=== PATIENT | female | born 1950 | race Caucasian/White ===

== ENCOUNTER 2020-01-14 10:11 | Outpatient (REF) | payer OTHER, SELFPAY | END 2020-01-14 10:12 | disposition home or self-care (01) | LOC: HO.LAB 10:11 | PROVIDERS: PCP Internal Medicine; Visit Provider Internal Medicine | DX: Z20.828 Contact with and (suspected) exposure to other viral communicable diseases (principal) | CPT/HCPCS: C9803; U0003 ==

== ENCOUNTER 2020-03-10 13:16 | Outpatient (REF) | payer OTHER, SELFPAY | END 2020-03-10 13:17 | disposition home or self-care (01) | LOC: HO.LAB 13:16 | PROVIDERS: PCP Internal Medicine; Visit Provider Internal Medicine | DX: Z20.822 Contact with and (suspected) exposure to COVID-19 (principal) | CPT/HCPCS: 36415; C9803; U0003 ==

== ENCOUNTER 2023-06-02 10:22 | Emergency (ER) | payer OTHER, SELFPAY ==
--- NOTE | ~2023-06-02 | XR_ITS ---
EXAMINATION: XR SACRUM AND COCCYX CLINICAL INFORMATION: Pain, injury. COMPARISON: None available. TECHNIQUE: 3 views of sacrum and coccyx FINDINGS: No evidence of sacral or coccygeal fracture. The sacral ala, foramina and sacroiliac joints are intact. Facet arthropathy, mild narrowing of disc space and chronic grade 1 anterolisthesis at L4-L5. At L5-S1, there is degenerative disc disease as manifest by severe loss of disc height, vacuum disc phenomenon, endplate sclerosis and osteophytosis. XR/XR sacrum coccyx min 2V IMPRESSION: No acute abnormality. No evidence of sacral or coccygeal fracture.
--- NOTE | ~2023-06-02 | CT_ITS ---
EXAMINATION: CT HEAD WITHOUT CONTRAST CT CERVICAL SPINE WITHOUT CONTRAST CLINICAL INFORMATION: Pain. Injury. Head strike. COMPARISON: CT head and cervical spine March 22 TECHNIQUE: Imaging was performed from the skull base to vertex without intravenous administration of contrast. In addition, helical noncontrast CT imaging was acquired through the cervical spine and source images were reviewed along with axial reconstructions and sagittal and coronal MPRs. [This CT examination was performed using dose optimization techniques as appropriate, variously including the following: *Automated exposure control *Adjustment of mA and/or kV according to patient size (this includes techniques or standardized protocols for targeted exams where dose is matched to indication/reason for exam; i.e. extremities or head) *Use of iterative reconstruction technique] DLP: 10.25+618.55+244.15 mGy-cm FINDINGS: HEAD: No intracranial mass, hemorrhage, or midline shift is visualized. There is generalized global volume loss. There is moderate prominence of the ventricles and the sulci . There is mild hypodensity of the periventricular white matter due to chronic small vessel ischemic disease. There are vascular calcifications of the internal carotid arteries bilaterally. No extra-axial collections are identified. The paranasal sinuses and mastoid air cells are well aerated. CERVICAL SPINE: There is no evidence of acute cervical spine fracture. Vertebral bodies remain normal in height. Cervical vertebrae have normal alignment. There is multilevel degenerative spondylosis of the cervical spine with disc height narrowing and endplate spurs and facet joint arthrosis No pre- or paravertebral soft tissue abnormality is identified. Limited assessment of the lung apices is unremarkable. CT/CT cervical spine wo IV con IMPRESSION: 1. No acute intracranial pathology. 2. No CT evidence of acute cervical spine fracture or traumatic subluxation
--- NOTE | ~2023-06-02 | CT_ITS ---
EXAMINATION: CT ABDOMEN AND PELVIS WITH CONTRAST CLINICAL INFORMATION: Abdominal pain following injury. COMPARISON: None available. TECHNIQUE: Multidetector volumetric images were obtained from the superior aspect of the liver through the pubic symphysis following administration 85 mL of Omnipaque 350 intravenous contrast. Sagittal and coronal reformatted images were obtained on the technologist's workstation. Oral contrast: No This CT examination was performed using dose optimization techniques as appropriate, variously including the following: *Automated exposure control *Adjustment of mA and/or kV according to patient size (this includes techniques or standardized protocols for targeted exams where dose is matched to indication/reason for exam; i.e. extremities or head) *Use of iterative reconstruction technique DLP: 734 mGy-cm FINDINGS: LUNG BASES: Small hiatal hernia. LIVER, GALLBLADDER, AND BILIARY TREE: The liver is normal in size and contour. No suspicious hepatic lesion. No biliary ductal dilatation is present. Gallstones. PANCREAS: Unremarkable. SPLEEN: Unremarkable. ADRENAL GLANDS: Unremarkable. KIDNEYS AND URETERS: The kidneys are symmetric in size and enhancement. 5 mm hypodensity upper pole right kidney too small to characterize. No hydronephrosis. No perinephric stranding. BLADDER: Unremarkable. GASTROINTESTINAL TRACT: Colonic diverticular disease. No evidence for acute inflammation. No small bowel obstruction. Appendix is within normal limits. Duodenal diverticula. ABDOMINAL WALL: No significant hernia is appreciated. LYMPH NODES: No bulky lymphadenopathy. VASCULAR: Normal caliber abdominal aorta. PELVIC VISCERA: Unremarkable. OSSEOUS STRUCTURES: No destructive bone lesions. CT/CT abdomen pelvis w IV con IMPRESSION: No acute abnormality in the abdomen or pelvis. Cholelithiasis.
[2023-06-02 10:29] VITALS: BP 141/90; PULSE 89; RESP 20; TEMP 36.8; O2SAT 98; BMI 28.3
--- NOTE | 2023-06-02 10:35 | ED.GENADULT ---
HPI - General Adult General Chief complaint: Fall Stated complaint: Fall/Tailbone pain Time Seen by Provider: 06/02/23 10:35 Source: patient Mode of arrival: ambulatory Limitations: no limitations History of Present Illness HPI narrative: Patient is a 72 year old assigned female at with a history of GERD, chronic cough, depression, and polyarthritis presenting to the emergency department today with low back pain, headache, and abdominal pain after a fall. Patient states that on 05/29/2023 she fell off of a step stool and landed on her buttocks then her head hit the ground. Patient states that she has been having low back pain, headache, and RUQ abdominal pain since the fall. Patient denies any dizziness, lightheadedness, nausea, vomiting, fever, chills, blurry vision, double vision, loss of vision, chest pain, difficulty breathing, shortness of breath, night sweats, pain with urination, increased urinary frequency, increased urinary urgency, blood in her urine or stool, syncope or a near syncopal episode, bowel incontinence, bladder incontinence, bowel retention, bladder retention, or any other complaints at this time. Onset (ago): day(s) (4) Location: back, abdomen and buttocks Severity: mild Severity scale (1-10): 4 Quality: aching and constant Pain Consistency: constant Relieving factors: none Exacerbating factors: none Associated symptoms: denies other symptoms Treatments prior to arrival: none Related Data Previous Rx's Medication Instructions Recorded cyclobenzaprine 5 mg tablet 5 mg PO TID PRN muscle spasm 7 06/02/23 days #21 tabs omeprazole 40 mg capsule,delayed 40 mg PO DAILY 7 days #7 caps 06/02/23 release Allergies Allergy/AdvReac Type Severity Reaction Status Date / Time No Known Allergies Allergy Unverified 11/18/19 15:19 [No Known Allergies*] Review of Systems Constitutional: Constitutional: Reports no additional constitutional complaints, Denies chills, Denies fever(s) and Denies night sweats Eyes: Eyes: Reports no additional eye complaints, Denies blurry vision, Denies change in vision, Denies diplopia, Denies eye discharge, Denies loss of vision and Denies eye pain ENT: Denies dizziness Cardiovascular: Cardiovascular: Reports no additional cardiovascular complaints, Denies chest pain, Denies lightheadedness, Denies Loss of Consciousness and Denies dyspnea Respiratory: Respiratory: Reports no additional respiratory complaints and Denies dyspnea Gastrointestinal: Gastrointestinal: Reports no additional gastrointestinal complaints, Reports abdominal pain, Denies melena, Denies hematochezia, Denies change in bowel habits and Denies change in stool character Genitourinary: Genitourinary: Denies hematuria, Denies urinary frequency, Denies dysuria, Denies urinary incontinence, Denies urinary hesitancy and Denies urinary urgency Musculoskeletal: Musculoskeletal: Reports no additional musculoskeletal complaints, Reports back pain, Denies numbness and Denies tingling Neurologic: Denies dizziness, Denies loss of vision, Denies numbness and Denies tingling Psychiatric: Psychiatric: Reports no additional psychiatric complaints Endocrine: Endocrine: Reports no additional endocrine complaints Hematologic/Lymphatic: Hematologic/Lymphatic: Reports no additional hematologic/lymphatic complaints Allergic/Immunologic: Allergic/Immunologic: Reports no additional allergic/immunologic complaints PMFSH Past Medical History Attestation statement: The following information was validated with the patient. Source: old records reviewed and nursing notes reviewed Medical History Post-menopausal Recurrent oral herpes simplex infection Polyarthritis (03/18/19) Diverticulitis Depression Chronic cough Allergic rhinitis Acid reflux Social History Social History Advance Directives: No Advance Directives Information Provided: Yes Physical Exam ED Vital Signs: Vital Signs - 24 hr 06/02/23 10:29 06/02/23 15:04 06/02/23 15:32 Temperature 98.2 F 97.8 F 97.9 F Pulse Rate 89 78 88 Respiratory Rate 20 16 14 Blood Pressure 141/90 H 148/88 H 123/85 Pulse Oximetry 98 99 99 Oxygen Delivery Method Room Air Room Air Room Air BMI result Body Mass Index 28.3 Const General: cooperative, no acute distress, alert and awake Nutritional Appearance: well nourished Orientation/consciousness: patient oriented x3 Limitations: no limitations HENMT Head: Yes normal to inspection and Yes atraumatic Ears: hearing grossly normal bilaterally and external ears normal General nose exam: Normal external nose present, no nasal discharge noted and no epistaxis Face and sinus: Yes normal facial exam, No abrasion and No laceration Mouth: Normal oral and palatal mucosa present, no drooling and no muffled voice Eyes General: appearance normal, both eyes and all related structures Periorbital: periorbital findings normal Eyelids: Yes eyelids normal Conjunctivae: conjunctivae normal Pupils: Equal, round and reactive pupils present EOM: EOMs intact bilaterally Neck Neck: Yes normal visual inspection, Yes full ROM and Yes no lymphadenopathy Chest Chest palpation & inspection: normal inspection of the chest Resp Effort & Inspection: normal respiratory effort and able to speak in complete sentences GI Inspection: Yes normal to inspection Palpation (GI): Soft to palpation, not firm, nontender and no guarding General: Yes no CVA tenderness Back/Spine/Pelvis Back: no CVA tenderness Cervical Spine: normal cervical lordosis and cervical ROM normal Thoracic/Lumbar Spine: thoracic and lumbar spine normal to inspection Neuro General: patient oriented x3 and moves all extremities Cranial nerves: Yes Equal, round and reactive pupils present Cognition (Neuro): normal cognition Motor exam (neuro): 5/5 motor strength present throughout Sensory Exam: Normal double simultaneous stimulation for sensation Coordination: [id number] test normal Extrem General: Yes normal to inspection, Yes full ROM and Yes capillary refill normal Psych Appearance: grossly normal Mental Status: mental status grossly normal Affect: normal affect Attitude: cooperative Thought process: Normal thought process present Thought content: Normal thought content present Insight: Good insight present (Psych) Medications Administered Discontinued Medications Generic Name Dose Route Start Last Admin Trade Name Freq PRN Reason Stop Dose Admin Iohexol 85 ml 06/02/23 13:58 06/02/23 13:58 Iohexol 350 Mg/Ml 100 Ml Infus..Btl IV 06/02/23 13:59 85 ml ONCE ONE Administration Pantoprazole Sodium 40 mg 06/02/23 12:56 06/02/23 13:30 Pantoprazole Sodium 40 Mg/10 Ml Vial IVPUSH 06/02/23 12:57 40 mg ONCE ONE Administration Medical Decision Making Medical Decision Making MDM Narrative: Patient is a 72 year old assigned female at with a history of GERD, chronic cough, depression, and polyarthritis presenting to the emergency department today with back pain and abdominal pain after a fall. Patient's physical exam was unremarkable. Patient's blood work was unremarkable. Patient's head, c-spine, and abdomen/pelvis CTs showed no acute process. Patient stated that she has been battling a chronic cough for months that antibiotics have not improved. I explained my physical exam findings as well as all test results to the patient. I answered all questions asked by the patient. Patient received IV protonix which she stated helped resolved her coughing completely. Patient states that she has an appointment scheduled with a GI doctor. I stressed the importance of the patient taking her medication as prescribed. I stressed the importance of the patient following up with her primary care provider. I stressed the importance of the patient returning to the emergency department immediately if her symptoms were to worsen or if she were to develop any dizziness, shortness of breath, difficulty breathing, chest pain, blurry vision, loss of vision, nausea, vomiting, abdominal pain, fever, chills, back pain, or any other complaints. Patient verbalized agreement and understanding with this treatment plan and discharge. Differential Diagnosis Differential Diagnoses: The differential diagnosis associated with the presentation includes GERD Back pain Abdominal pain Fall Admission/Observation Consideration of admission/observation: Escalation of care including admission/observation considered Patient would have been admitted to the hospital had her work up had any findings where hospital admission was appropriate and her clinical presentation warranted hospital admission. Lab Data [facility] Lab Attestation statement: I reviewed the patient's lab results. My interpretation of these results are in the [facility] Rationale portion of this note. 06/02/23 12:32 06/02/23 12:32 Labs: Lab Results 06/02/23 Range/Units 12:32 WBC 7.4 (4.8-10.8) X10*3/uL RBC 4.54 (4.20-5.50) X10*6/uL Hgb 14.4 (12.0-16.0) g/dl Hct 40.7 (37.0-47.0) % MCV 89.6 (80.0-98.0) fL MCH 31.7 (27.0-33.0) pg MCHC 35.4 H (31.0-35.0) g/dl RDW 12.3 (11.0-16.0) % Plt Count 275 (160-400) X10*3/uL MPV 9.2 L (9.4-12.3) fL Immature Gran % (Auto) 0.5 H (0.0-0.4) % Neut % (Auto) 84.2 H (45-73) % Lymph % (Auto) 12.9 L (20-40) % [place] % (Auto) 2.3 (2-11) % Eos % (Auto) 0.0 (0-4) % Baso % (Auto) 0.1 (0-2) % Lymph # (Auto) 1.0 L (1.2-4.9) X10*3/uL [place] # (Auto) 0.2 (0.1-1.2) X10*3/uL Eos # (Auto) 0.0 (0.0-0.4) X10*3/uL Baso # (Auto) 0.0 (0.0-0.2) X10*3/uL Abs Immat Gran (auto) 0.04 H (0.00-0.03) X10*3/uL Absolute Neuts (auto) 6.2 (2.0-8.3) x10*3/uL Absolute Nucleated RBC 0.000 (0.0-0.012) X10*3/uL Nucleated RBC % (auto) 0.0 (0.0-0.2) /100WBC Sodium 140 (135-145) mmol/L Potassium 4.5 (3.3-5.1) mmol/L Chloride 109 H (96-108) mmol/L Carbon Dioxide 25 (22-29) mmol/L Anion Gap 11 L (12-20) BUN 20 H (9-16) mg/dL Creatinine 0.84 (0.5-1.4) mg/dL Estim Creat Clear Calc 49.0 Estimated GFR > 60 Random Glucose 138 H (60-115) mg/dL Calcium 9.5 (8.4-10.2) mg/dL Total Bilirubin 0.2 (0.0-1.0) mg/dL AST 16 (5-31) U/L ALT 17 (0-31) U/L Alkaline Phosphatase 71 (39-117) U/L Total Protein 7.1 (6.5-8.0) g/dL Albumin 4.1 (3.5-5.0) g/dL Independent Interpretation I performed an independent interpretation of an: CT Scan Interpretation: My interpretation is in agreement with the radiologist's impression of these imaging studies. EXAMINATION: CT HEAD WITHOUT CONTRAST CT CERVICAL SPINE WITHOUT CONTRAST CLINICAL INFORMATION: Pain. Injury. Head strike. COMPARISON: CT head and cervical spine March 22 TECHNIQUE: Imaging was performed from the skull base to vertex without intravenous administration of contrast. In addition, helical noncontrast CT imaging was acquired through the cervical spine and source images were reviewed along with axial reconstructions and sagittal and coronal MPRs. [This CT examination was performed using dose optimization techniques as appropriate, variously including the following: *Automated exposure control *Adjustment of mA and/or kV according to patient size (this includes techniques or standardized protocols for targeted exams where dose is matched to indication/reason for exam; i.e. extremities or head) *Use of iterative reconstruction technique] DLP: 10.25+618.55+244.15 mGy-cm FINDINGS: HEAD: No intracranial mass, hemorrhage, or midline shift is visualized. There is generalized global volume loss. There is moderate prominence of the ventricles and the sulci . There is mild hypodensity of the periventricular white matter due to chronic small vessel ischemic disease. There are vascular calcifications of the internal carotid arteries bilaterally. No extra-axial collections are identified. The paranasal sinuses and mastoid air cells are well aerated. CERVICAL SPINE: There is no evidence of acute cervical spine fracture. Vertebral bodies remain normal in height. Cervical vertebrae have normal alignment. There is multilevel degenerative spondylosis of the cervical spine with disc height narrowing and endplate spurs and facet joint arthrosis No pre- or paravertebral soft tissue abnormality is identified. Limited assessment of the lung apices is unremarkable. CT/CT head/brain wo IV con IMPRESSION: 1. No acute intracranial pathology. 2. No CT evidence of acute cervical spine fracture or traumatic subluxation Dictated By: Gallo Atkinson MD Signed By: Electronically signed by Gallo Atkinson MD 06/02/23 [id number] EXAMINATION: CT ABDOMEN AND PELVIS WITH CONTRAST CLINICAL INFORMATION: Abdominal pain following injury. COMPARISON: None available. TECHNIQUE: Multidetector volumetric images were obtained from the superior aspect of the liver through the pubic symphysis following administration 85 mL of Omnipaque 350 intravenous contrast. Sagittal and coronal reformatted images were obtained on the technologist's workstation. Oral contrast: No This CT examination was performed using dose optimization techniques as appropriate, variously including the following: *Automated exposure control *Adjustment of mA and/or kV according to patient size (this includes techniques or standardized protocols for targeted exams where dose is matched to indication/reason for exam; i.e. extremities or head) *Use of iterative reconstruction technique DLP: 734 mGy-cm FINDINGS: LUNG BASES: Small hiatal hernia. LIVER, GALLBLADDER, AND BILIARY TREE: The liver is normal in size and contour. No suspicious hepatic lesion. No biliary ductal dilatation is present. Gallstones. PANCREAS: Unremarkable. SPLEEN: Unremarkable. ADRENAL GLANDS: Unremarkable. KIDNEYS AND URETERS: The kidneys are symmetric in size and enhancement. 5 mm hypodensity upper pole right kidney too small to characterize. No hydronephrosis. No perinephric stranding. BLADDER: Unremarkable. GASTROINTESTINAL TRACT: Colonic diverticular disease. No evidence for acute inflammation. No small bowel obstruction. Appendix is within normal limits. Duodenal diverticula. ABDOMINAL WALL: No significant hernia is appreciated. LYMPH NODES: No bulky lymphadenopathy. VASCULAR: Normal caliber abdominal aorta. PELVIC VISCERA: Unremarkable. OSSEOUS STRUCTURES: No destructive bone lesions. CT/CT abdomen pelvis w IV con IMPRESSION: No acute abnormality in the abdomen or pelvis. Cholelithiasis. Dictated By: Belinda Orr MD Signed By: Electronically signed by Belinda Orr MD 06/02/23 1516 Radiology Impression Discussion of test interpretation with radiology: I have reviewed the radiologist's reading. Prescription Management I considered prescription management with: Pain Medication (patient prescribed pain medication) Discharge Plan Discharge Clinical Impression: Fall, Chronic cough, Abdominal pain, Low back pain, Chronic GERD Patient Disposition: Home, Self-Care Instructions: Fall Prevention for Older Adults (ED), Gastroesophageal Reflux Disease (DC), Chronic Cough (ED), Acute Low Back Pain (ED), Abdominal Pain (ED) Additional Instructions: Follow up with your primary care provider and with your GI doctor as scheduled. Return to the emergency department immediately if your symptoms worsen or if you develop any dizziness, shortness of breath, difficulty breathing, chest pain, blurry vision, loss of vision, nausea, vomiting, abdominal pain, fever, chills, back pain, or any other complaints. Prescriptions: New omeprazole 40 mg capsule,delayed release(DR/EC) 40 mg PO DAILY 7 Days Qty: 7 0RF cyclobenzaprine 5 mg tablet 5 mg PO TID PRN (Reason: muscle spasm) 7 Days Qty: 21 0RF Referrals: Brock Culver MD [Primary Care Provider] - Interventions: ED Discharge Assessment Last Done: 06/02/23 15:32 Discharge Date/Time: 06/02/23 15:33 Print Language: Italian
--- NOTE | 2023-06-02 10:39 | PC.NURSE ---
Addendum entered by Ginger Mayfield RN 06/02/23 10:43: Patient denies LOC, no thinners. Original Note: Patient comes to ED due to fall on at home. Patient states she was on step stool turning off light and lost balance and fell on her coccyx with head strike. Patient states she was dizzy post fall and could not move body for a few seconds. Patient rates 7/10 coxxyx pain that worsens with movement. Patient also reports right sided abdominal pain since fall that worsens with movement/touch. Patient is alert and oriented, respirations even and unlabored. vss.
--- OUTSIDE RECORDS SUMMARY | 2023-06-02 10:56 | XMS_ITS | Continuity of Care Document ---
Author Name Unknown Organization [facility] [address] Address [address] [place] [address]- Care Team Providers Care Parking Lot Chauffeur Name Role Phone Abiola LAM, Brock Junior Primary Care Physician [phone] Encounter [facility] Date(s): 04/19/20 - 05/19/20 [facility] Adult [address] [place] [address]- Allergies, Adverse Reactions, Alerts Substance Reaction Severity Status NKA Active Immunizations Given and Recorded Vaccine Date Status Refusal Reason Influenza Virus Vaccine (oldterm) 01/03/20 Recorde d Influenza Virus Vaccine (oldterm) 1 11/08/08 Given influenza virus vaccine, inactivated 11/17/18 Jay rded influenza virus vaccine, inactivated 12/11/17 Give n influenza virus vaccine, inactivated 11/17/16 Jay rded influenza virus vaccine, inactivated 11/04/15 Give n influenza virus vaccine, inactivated 02/14/15 Give n influenza virus vaccine, inactivated 12/01/13 Jay rded influenza virus vaccine, inactivated 2, 3 02/27/13 Recorded pneumococcal 23-valent vaccine 04/18/17 Given Hepatitis A Adult Vaccine 04/18/17 Given tetanus/diphtheria/pertussis, acel(Tdap) 04/18/17 Given pneumococcal 13-valent vaccine 05/03/16 Given FluLaval (oldterm) 4, 5 01/16/12 Given Zoster Vaccine Live 6 03/04/11 Recorded Tet/Diphth/Acel, Pertussis (oldterm) 03/12/07 Give n 1Result Comment: DID NOT GET 2Location History: [facility] 3Result Comment: [03/05/2013] FLUVIRIN LOT # [id number] EXP 05/31/13 4Result Comment: PT REFUSED 5Admin Note: [place] [facility] [place] Medications Diflucan 150 mg oral tablet See Instructions, 1 tablet By Mouth , if symptoms not improved in 72 hours take another., # 2 tablet, 0 Refills, Maintenance, 04/19/20 16:57:00 EST, Tablet, [id number], Partial fill upon patient request if the prescription is for a sc... Start Date: 04/19/20 Status: Ordered escitalopram 10 mg oral tablet 1 tablet = 10 mg, By Mouth, Daily, # 90 tablet, 4 Refills, Maintenance, 05/06/19 13:44:00 EST, Tablet, [facility] #[id number], 152.4, cm, 03/18/19 15:27:00 EST, Height Start Date: 05/06/19 Status: Ordered Singulair 10 mg oral tablet 10 mg, 1, tablet, By Mouth, Daily, # 90 tablet, Refills 1, Tot. Refills 1, Maintenance, 02/07/20 15:07:00 EST, Route to Pharmacy Electronically, [id number], 152.4, cm, 01/10/20 11:58:00 EST, Height Start Date: 02/07/20 Stop Date: 08/05/20 Status: Ordered ZyrTEC 10 mg oral tablet 1 tablet = 10 mg, By Mouth, Daily, # 90 tablet, 0 Refills, Maintenance, 07/03/18 11:23:38 EDT, Tablet Start Date: 07/03/18 Status: Ordered Problem List Condition Effective Dates Status Health Status Inform ant Acute bronchitis(Confirmed) Active After menopause(Confirmed) Active Allergic rhinitis(Confirmed) Active Chronic cough(Confirmed) Active Colonoscopy(Confirmed) 1 Active Depression(Confirmed) Active Diverticulitis(Confirmed) Active Female climacteric state(Confirmed) Active Acid reflux(Confirmed) Active H/O heartburn(Confirmed) Active Recurrent oral herpes simple x infection(Confirmed) Active Sinusitis(Confirmed) Active 8[address]11 nl, repeat 2019 Social History Social History Type Response Smoking Status Former smoker; Other : Quit smoking age 35; entered on: 05/03/16 Sex
--- OUTSIDE RECORDS SUMMARY | 2023-06-02 10:56 | XMS_ITS | Continuity of Care Document ---
Author Name Unknown Organization [facility] Address [address] [place] [address]- Care Team Providers Care Engine Repairer Name Role Phone Brock Culver MD Primary Care Physician [facility]23 - 05/16/23 [facility] Adult [address] [place] [address]- Allergies, Adverse Reactions, Alerts No Known Allergies Immunizations Given and Recorded Vaccine Date Status Refusal Reason SARS-CoV-2(COVID-19)mRNA-LNP vac([id number]) 02/04/23 Recorded influenza virus vaccine, inactivated 01/13/23 Jay rded influenza virus vaccine, inactivated 12/18/21 Jay rded influenza virus vaccine, inactivated 12/29/20 Jay rded influenza virus vaccine, inactivated 11/29/19 Jay rded influenza virus vaccine, inactivated 11/17/18 Jay rded influenza virus vaccine, inactivated 12/11/17 Give n influenza virus vaccine, inactivated 12/09/17 Jay rded influenza virus vaccine, inactivated 12/18/16 Jay rded influenza virus vaccine, inactivated 11/17/16 Jay rded influenza virus vaccine, inactivated 11/04/15 Give n influenza virus vaccine, inactivated 02/14/15 Give n influenza virus vaccine, inactivated 12/01/13 Jay rded influenza virus vaccine, inactivated 1, 2 02/27/13 Recorded [id number] bivalent booster vax 01/02/22 Recorded SARS-CoV-2 (COVID-19) mRNA-1273 vaccine 07/13/21 R ecorded SARS-CoV-2 (COVID-19) mRNA-1273 vaccine 05/25/20 R ecorded SARS-CoV-2 (COVID-19) mRNA-1273 vaccine 04/27/20 R ecorded Influenza Virus Vaccine (oldterm) 01/03/20 Recorde d pneumococcal 23-valent vaccine 04/18/17 Given Hepatitis A Adult Vaccine 04/18/17 Given tetanus/diphtheria/pertussis, acel(Tdap) 04/18/17 Given pneumococcal 13-valent vaccine 05/03/16 Given Zoster Vaccine Live 3 03/04/11 Recorded Tet/Diphth/Acel, Pertussis (oldterm) 03/12/07 Give n 1Location History: [facility] 2Result Comment: [03/05/2013] FLUVIRIN LOT # [id number] EXP 05/31/13 3Location History: [facility] Medications azithromycin 250 mg oral tablet See Instructions, Take 2 tablets on day 1 and 1 tablet daily for next 4 days, # 6 tablet, 0 Refills, Maintenance, 04/16/23 10:42:00 EST, Tablet, [facility] #[id number], Partial fill upon patientrequest if the prescription is for a schedule II op... Start Date: 04/16/23 Status: Ordered escitalopram 10 mg oral tablet 1 tablet, By Mouth, Daily, # 90 tablet, 3 Refills, Maintenance, 09/05/22 14:05:00 EDT, [facility] #[id number], 152.4, cm, 09/05/22 12:54:00 EDT, Height Start Date: 09/05/22 Status: Ordered fluticasone 50 mcg/inh nasal spray 2 sprays = 100 mcg, Nares, Both, Daily in AM, # 16 Gm, 11 Refills, Maintenance, 02/10/23 14:27:00 EST, [place], [facility] #[id number], Partial fill upon patient request if the prescription is fora schedule II opioid drug., 2 sprays Nares, Both Da... Start Date: 02/10/23 Status: Ordered predniSONE 10 mg oral tablet 1 tablet = 10 mg, By Mouth, 2 times a day, # 10 tablet, 0 Refills, Maintenance, 04/16/23 10:22:00 EST, Tablet, [facility] #[id number], Partial fill upon patient request if the prescription is for a schedule II opioid drug., 152.4, cm, 04/16/23 10... Start Date: 04/16/23 Status: Ordered predniSONE 20 mg oral tablet 2 tablet = 40 mg, By Mouth, Daily, PRN severe cough, # 20 tablet, 0 Refills, Maintenance, 02/10/23 14:26:00 EST, Tablet, [facility] #[id number], Partial fill upon patient request if the prescription is for a schedule II opioid drug., 152.4, cm, 1... Start Date: 02/10/23 Status: Ordered Protonix 20 mg oral delayed release tablet 1 tablet = 20 mg, By Mouth, Daily, # 30 tablet, 6 Refills, Maintenance, 11/02/21 11:34:00 EDT, CR Tablet, 152.4, cm, 11/02/21 11:15:00 EDT, Height Start Date: 11/02/21 Status: Ordered scopolamine 1 mg/72 hr transdermal film, extended release 1 patch, Topically, Every 72 hours, # 4 patch, 0 Refills, Maintenance, 02/10/23 14:23:00 EST, [facility] #[id number], Partial fill upon patient request if the prescription is for a schedule II opioid drug., 1 patch Topically Every 72 hours, 152.4... Start Date: 02/10/23 Status: Ordered ZyrTEC 10 mg oral tablet 1 tablet = 10 mg, By Mouth, Daily, # 90 tablet, 3 Refills, Maintenance, 04/09/21 14:24:00 EST, Tablet, [facility] #[id number], Partial fill upon patient request if the prescription is for a schedule II opioid drug., 152.4, cm, 04/09/21 13:56:00 E... Start Date: 04/09/21 Status: Ordered Problem List Condition Confirmation Course Effective Dates Status H ealth Status Informant Allergic rhinitis Confirmed Active Chronic cough Confirmed Active Colonoscopy 1, 2 Confirmed Active COVID-19 Confirmed Active Depression Confirmed Active Diverticulitis Confirmed Active Female climacteric state Confirmed Active Acid reflux Confirmed Active H/O heartburn Confirmed Active Recurrent oral herpes simplex infection Confirmed Active 14424; repeat 2030 91991 nl, repeat 2019 Social History Social History Type Response Smoking Status Former smoker; Other : Quit smoking age 35; entered on: 05/03/16 Sex Patient Care team information Care Team Personnel Name: Abiola LAM, Brock Coy: [facility] Physician - Primary Care Member Role: PCP Address: Address: [address] [place] [address]- Care Team Related Persons Name: SAMUEL ROY Address: [address] [place] [address] Name: NAINA MCFARLANE Address: home [address] [place] [address]
--- OUTSIDE RECORDS SUMMARY | 2023-06-02 10:56 | XMS_ITS | Continuity of Care Document ---
Author Name Unknown Organization [facility] Address [address] [place] [address]- Care Team Providers Care Clinical Ob Name Role Phone Brock Culver MD Primary Care Physician [phone] [facility] - 06/15/21 [facility] Adult [address] [place] [address]- Allergies, Adverse Reactions, Alerts No Known Allergies Immunizations Given and Recorded Vaccine Date Status Refusal Reason influenza virus vaccine, inactivated 12/29/20 Jay rded [...] virus vaccine, inactivated 1, 2 02/27/13 Recorded SARS-CoV-2 (COVID-19) mRNA-1273 vaccine 05/25/20 R ecorded SARS-CoV-2 (COVID-19) mRNA-1273 vaccine 04/27/20 R ecorded Influenza Virus Vaccine (oldterm) 01/03/20 Recorde d Influenza Virus Vaccine (oldterm) 3 11/08/08 Given pneumococcal 23-valent vaccine 04/18/17 Given Hepatitis A Adult Vaccine 04/18/17 Given tetanus/diphtheria/pertussis, acel(Tdap) 04/18/17 Given pneumococcal 13-valent vaccine 05/03/16 Given FluLaval (oldterm) 4, 5 01/16/12 Given Zoster Vaccine Live 6 03/04/11 Recorded Tet/Diphth/Acel, Pertussis (oldterm) 03/12/07 Give n 1Location History: [facility] 2Result Comment: [03/05/2013] FLUVIRIN LOT # [id number] EXP 05/31/13 3Result Comment: DID NOT GET 4Result Comment: PT REFUSED 5Admin Note: [facility] 6Location History: [facility] Medications escitalopram 10 mg oral tablet 1 tablet = 10 mg, By Mouth, Daily, # 30 tablet, 5 Refills, Maintenance, 10/30/20 8:13:00 EDT, Tablet, [facility] #[id number], 152.4, cm, 10/13/20 7:01:00 EDT, Height Start Date: 10/30/20 Status: Ordered Flonase 50 mcg/inh nasal spray 2 sprays, Nares, Both, Daily in AM, # 16 Gm, 11 Refills, Maintenance, 11/30/20 14:56:00 EDT, [place],[facility] #[id number], Partial fill upon patient request if the prescription is for a schedule II opioid drug., 2 sprays Nares, Both Daily in AM,... Start Date: 11/30/20 Status: Ordered ZyrTEC 10 mg oral tablet 1 tablet = 10 mg, By Mouth, Daily, # 90 tablet, 3 Refills, Maintenance, 04/09/21 14:24:00 EST, Tablet, [facility] #[id number], Partial fill upon patient request if the prescription is for a schedule II opioid drug., 152.4, cm, 04/09/21 13:56:00 E... Start Date: 04/09/21 Status: Ordered Problem List Condition Effective Dates Status Health Status Inform ant Acute bronchitis(Confirmed) Active After menopause(Confirmed) Active Allergic rhinitis(Confirmed) Active Chronic cough(Confirmed) Active Colonoscopy(Confirmed) 1, 2 Active Depression(Confirmed) Active Diverticulitis(Confirmed) Active Female climacteric state(Confirmed) Active Acid reflux(Confirmed) Active H/O heartburn(Confirmed) Active Obese class I(Confirmed) Active Recurrent oral herpes simple x infection(Confirmed) Active Sinusitis(Confirmed) Active 24247; repeat 2030 , repeat 2019 Social History Social History Type Response Smoking Status Former smoker; Other : Quit smoking age 35; entered on: 05/03/16 Sex
--- OUTSIDE RECORDS SUMMARY | 2023-06-02 10:56 | XMS_ITS | Continuity of Care Document ---
Author Name Unknown Organization [facility] Address [address] [place] [address]- Care Team Providers Care Fowl Blood Tester Name Role Phone Abiola LAM, Brock Junior Primary Care Physician [phone] [facility] 05[facility]20 - 06/21/20 [facility] Adult [address] [place] [address]- Allergies, Adverse Reactions, Alerts Substance Reaction Severity [...] DID NOT GET 2Location History: [facility] 3Result Comment: [03/05/2013] FLUVIRIN LOT # [id number] EXP 05/31/13 4Result Comment: PT REFUSED 5Admin Note: [facility] 6Location History: [facility] Medications escitalopram 10 mg oral tablet 1 tablet = 10 mg, By Mouth, Daily, # 90 tablet, 4 Refills, Maintenance, 05/06/19 13:44:00 EST, Tablet, [facility] #[id number], 152.4, cm, 03/18/19 15:27:00 EST, Height Start Date: 05/06/19 Status: Ordered Singulair 10 mg oral tablet 10 mg, 1, tablet, By Mouth, Daily, # 90 tablet, Refills 1, Tot. Refills 1, Maintenance, 02/07/20 15:07:00 EST, Route to Pharmacy Electronically, [facility] #[id number], 152.4, cm, 01/10/20 11:58:00 EST, Height Start [...] herpes simple x infection(Confirmed) Active Sinusitis(Confirmed) Active 96782 nl, repeat 2019 Social History Social History Type Response Smoking Status Former smoker; Other : Quit smoking age 35; entered on: 05/03/16 Sex
--- OUTSIDE RECORDS SUMMARY | 2023-06-02 10:56 | XMS_ITS | Continuity of Care Document ---
Author Name Unknown Organization [facility] Address [address] [place] [address]- Care Team Providers Care Strategy Analyst Name Role Phone Brock Culver MD Primary Care Physician [facility] 09[facility]18[facility]20 - 10/18/20 [facility] Adult [address] [place] [address]- Allergies, Adverse Reactions, Alerts Substance Reaction Severity Status NKA Active Immunizations Given and Recorded Vaccine Date Status Refusal Reason SARS-CoV-2 (COVID-19) mRNA-1273 vaccine 05/25/20 R ecorded SARS-CoV-2 (COVID-19) mRNA-1273 vaccine 04/27/20 R ecorded Influenza Virus Vaccine (oldterm) 01/03/20 Recorde d Influenza Virus Vaccine (oldterm) 1 11/08/08 Given influenza virus vaccine, inactivated 11/29/19 Jay rded [...] 5 01/16/12 Given Zoster Vaccine Live 6 1/2/12 Recorded Tet/Diphth/Acel, Pertussis (oldterm) 03/12/07 Give n 1Result Comment: DID NOT GET 2Location History: [facility] 3Result Comment: [03/05/2013] FLUVIRIN LOT # [id number] EXP 05/31/13 4Result Comment: PT REFUSED 5Admin Note: [facility] 6Location History: [facility] Medications Flonase 50 mcg/inh nasal spray 2 sprays, Nares, Both, Daily in AM, # 16 Gm, 11 Refills, Maintenance, 09/05/20 11:32:00 EDT, [place],[facility] #[id number], Partial fill upon patient request if the prescription is for a schedule II opioid drug., 2 sprays Nares, Both Daily in AM,... Start Date: 09/05/20 Status: Ordered Medrol 16 mg oral tablet 1 tablet = 16 mg, By Mouth, Daily, for 7 days, as directed with food, # 7 tablet, 0 Refills, Acute 10/20/20 7:23:00 EDT, 10/13/20 7:23:00 EDT, Tablet, [facility] #[id number], Partial fill upon patient request if the prescription is for a schedul... Start Date: 10/13/20 Stop Date: 10/20/20 Status: Ordered Problem List Condition Effective Dates Status Health Status Inform ant Acute bronchitis(Confirmed) Active After menopause(Confirmed) Active Allergic rhinitis(Confirmed) Active Chronic cough(Confirmed) Active Colonoscopy(Confirmed) 1 Active Depression(Confirmed) Active Diverticulitis(Confirmed) Active Female climacteric state(Confirmed) Active Acid reflux(Confirmed) Active H/O heartburn(Confirmed) Active Recurrent oral herpes simple x infection(Confirmed) Active Sinusitis(Confirmed) Active 43762 nl, repeat 2020 Social History Social History Type Response Smoking Status Former smoker; Other : Quit smoking age 35; entered on: 05/03/16 Sex
--- OUTSIDE RECORDS SUMMARY | 2023-06-02 10:56 | XMS_ITS | Continuity of Care Document ---
Author Name Unknown Organization [facility] Address [address] [place] [address]- Care Team Providers Care Cereal Chemist Name Role Phone Brock Culver MD Primary Care Physician [facility] 09[facility]14[facility]21 - 10/14/21 [facility] Adult [address] [place] [address]- Attending Physician: Admtr, Ar8 Allergies, Adverse Reactions, Alerts No Known Allergies [...] 03/12/07 Give n 1Location History: [facility] 2Result Comment: [03/05/2013] FLUVIRIN LOT # [id number] EXP 05/31/13 3Result Comment: DID NOT GET 4Result Comment: PT REFUSED 5Admin Note: [facility] 6Location History: [facility] Medications escitalopram 10 mg oral tablet 1 tablet = 10 mg, By Mouth, Daily, # 30 tablet, 5 Refills, Maintenance, 10/30/20 8:13:00 EDT, Tablet, [facility] #[id number], 152.4, cm, 10/13/20 7:01:00 EDT, Height Start Date: 10/30/20 Status: Ordered Flonase 50 mcg/inh nasal spray 2 sprays, Nares, Both, Daily in AM, # 16 Gm, 11 Refills, Maintenance, 11/30/20 14:56:00 EDT, [place],[facility] #[id number], Partial fill upon patient request if the prescription is for a schedule II opioid drug., 2 sprays Nares, Both Daily in AM,... Start Date: 11/30/20 Status: Ordered predniSONE 20 mg oral tablet 1 tablet = 20 mg, By Mouth, Daily, # 7 tablet, 2 Refills, Maintenance, 09/14/21 10:40:00 EDT, Tablet, [facility] #[id number], Partial fill upon patient request if the prescription is for a schedule II opioid drug., 152.4, cm, 09/14/21 10:23:00 ED... Start Date: 09/14/21 Stop Date: 10/05/21 Status: Ordered ZyrTEC 10 mg oral tablet 1 tablet = 10 mg, By Mouth, Daily, # 90 tablet, 3 Refills, Maintenance, 04/09/21 14:24:00 EST, Tablet, [facility] #[id number], Partial fill upon patient request if the [...] herpes simple x infection(Confirmed) Active Sinusitis(Confirmed) Active 87478; repeat 203010 nl, repeat 2019 Procedures Procedure Date Related Diagnosis Body Site Status Colonoscopy 1 11/07/20 Completed 1repeat 2030 Social History Social History Type Response Smoking Status Former smoker; Other : Quit smoking age 35; entered on: 05/03/16 Sex
--- OUTSIDE RECORDS SUMMARY | 2023-06-02 10:56 | XMS_ITS | Continuity of Care Document ---
Author Name Unknown Organization [facility] Address [address] [place] [address]- Care Team Providers Care Block Cleaner Name Role Phone Brock Culver MD Primary Care Physician [phone] [facility] 01[facility]22 - 02/22/22 [facility] Adult [address] [place] [address]- Allergies, Adverse Reactions, Alerts No Known Allergies [...] 03/12/07 Give n 1Location History: [facility] 2Result Comment: [03/05/2013] FLUVIRIN LOT # [id number] EXP 05/31/13 3Result Comment: DID NOT GET 4Result Comment: PT REFUSED 5Admin Note: [facility] 6Location History: [facility] Medications amoxicillin 875 mg oral tablet 1 tablet = 875 mg, By Mouth, 2 times a day, # 14 tablet, 0 Refills, Maintenance, 11/02/21 11:39:00 EDT, Tablet, [facility] #[id number], Partial fill upon patient request if the prescription is for a schedule II opioid drug., 152.4, cm, 11/02/21 1... Start Date: 11/02/21 Stop Date: 11/09/21 Status: Ordered escitalopram 10 mg oral tablet 1 tablet, By Mouth, Daily, # 90 tablet, 3 Refills, Maintenance, 01/27/22 7:54:00 EST, [facility] #[id number], 152.4, cm, 01/22/22 15:53:00 EST, Height Start Date: 01/27/22 Status: Ordered Flonase 50 mcg/inh nasal spray 2 sprays, Nares, Both, Daily in AM, # 16 Gm, 11 Refills, Maintenance, 11/30/20 14:56:00 EDT, [place],[facility] #[id number], Partial fill upon patient request if the prescription is for a schedule II opioid drug., 2 sprays Nares, Both Daily in AM,... Start Date: 11/30/20 Status: Ordered Mucinex 600 mg oral tablet, extended release See Instructions, 1 tablet By Mouth Every 12 hours as needed for cough and chest congestion. Swallow extended-release tablets whole; do not chew or crush, # 10 tablet, 0 Refills, Maintenance, 01/22/22 15:55:00 EST, ER Tablet, [facility] #0... Start Date: 01/22/22 Status: Ordered predniSONE 10 mg oral tablet 1 tablet = 10 mg, By Mouth, 2 times a day, # 10 tablet, 0 Refills, Maintenance, 01/22/22 15:54:00 EST, Tablet, [facility][id number], Partial fill upon patient request if the prescription is for a schedule II opioid drug., 152.4, cm, 01/22/22 15... Start Date: 01/22/22 Stop Date: 01/27/22 Status: Ordered predniSONE 20 mg oral tablet 1 tablet = 20 mg, By Mouth, Daily, # 7 tablet, 2 Refills, Maintenance, 09/14/21 10:40:00 EDT, Tablet, [facility] #[id number], Partial fill upon patient request if the prescription is for a schedule II opioid drug., 152.4, cm, 09/14/21 10:23:00 ED... Start Date: 09/14/21 Stop Date: 10/05/21 Status: Ordered ProAir HFA 90 mcg/inh inhalation aerosol with adapter 2, puffs, Inhalation, Every 6 hours, PRN, # 8.5 Gm, Refills 0, Tot. Refills 0, Maintenance, 01/22/22 15:57:00 EST, Aerosol, Route to Pharmacy Electronically, [id number], [facility] #[id number], 152.4, cm, 01/22/22 15:53:... Start Date: 01/22/22 Status: Ordered Protonix 20 mg oral delayed release tablet 1 tablet = 20 mg, By Mouth, Daily, # 30 tablet, 6 Refills, Maintenance, 11/02/21 11:34:00 EDT, CR Tablet, 152.4, cm, 11/02/21 11:15:00 EDT, Height Start Date: 11/02/21 Status: Ordered ZyrTEC 10 mg oral tablet 1 tablet = 10 mg, By Mouth, Daily, # 90 tablet, 3 Refills, Maintenance, 04/09/21 14:24:00 EST, Tablet, [facility] #[id number], Partial fill upon patient request if the prescription is for a schedule II opioid drug., 152.4, cm, 04/09/21 13:56:00 E... Start Date: 04/09/21 Status: Ordered Problem List Condition Confirmation Course Effective Dates Status H ealth Status Informant After menopause Confirmed Active Allergic rhinitis Confirmed Active Chronic cough Confirmed Active Colonoscopy 1, 2 Confirmed Active Depression Confirmed Active Diverticulitis Confirmed Active Female climacteric state Confirmed Active Acid reflux Confirmed Active H/O heartburn Confirmed Active PND (post-nasal drip) Confirmed Active Recurrent oral herpes simplex infection Confirmed Active Sinusitis Confirmed Active 04787; repeat 2030 64711 nl, repeat 2019 Social History Social History Type Response Smoking Status Former smoker; Other : Quit smoking age 35; entered on: 05/03/16 Sex Patient Care team information Care Team Personnel Name: Abiola LAM, Brock Junior Position: [facility] Primary Care Physician Member Role: PCP Address: Address: [address] [place] [address]- Care Team Related Persons Name: SAMUEL ROY Address: [address] [place] [address] Name: NAINA MCFARLANE Address: [address] [place] [address]
--- OUTSIDE RECORDS SUMMARY | 2023-06-02 10:56 | XMS_ITS | Continuity of Care Document ---
Author Name Unknown Organization [facility] Address [address] [place] [address]- Care Team Providers Care Fire Suppression Captain Name Role Phone Brock Culver MD Primary Care Physician [phone] [facility] - 02/15/23 [facility] Adult [address] [place] [address]- Attending Physician: Josiah Alva MD Referring Physician: Brock Culver MD Allergies, Adverse Reactions, Alerts No Known Allergies Immunizations Given and Recorded Vaccine Date Status Refusal Reason SARS-CoV-2(COVID-19)mRNA-LNP vac([id number]) 02/04/23 Recorded influenza virus vaccine, inactivated 01/13/23 [...] virus vaccine, inactivated 1, 2 02/27/13 Recorded [id number] bivalent booster vax 01/02/22 Recorded SARS-CoV-2 (COVID-19) [...] 03/12/07 Give n 1Location History: [facility] 2Result Comment: [03/05/2013] FLUVIRIN LOT # [id number] EXP 05/31/13 3Location History: [facility] Medications escitalopram 10 mg oral tablet 1 tablet, By Mouth, Daily, # 90 tablet, 3 Refills, Maintenance, 09/05/22 14:05:00 EDT, [facility] #[id number], 152.4, cm, 09/05/22 12:54:00 EDT, Height Start Date: 09/05/22 Status: Ordered fluticasone 50 mcg/inh nasal spray 2 sprays = 100 mcg, Nares, Both, Daily in AM, # 16 Gm, 11 Refills, Maintenance, 02/10/23 14:27:00 EST, [place], [facility] #[id number], Partial fill upon patient request if the prescription is fora schedule II opioid drug., 2 sprays Nares, Both Da... Start Date: 02/10/23 Status: Ordered levoFLOXacin 500 mg oral tablet 1 tablet = 500 mg, By Mouth, Every 24 hours, for 10 days, # 10 tablet, 0 Refills, Acute 02/20/23 14:21:00 EST, 02/10/23 14:21:00 EST, Tablet, [facility] #[id number], Partial fill upon patient request if the prescription is for a schedule II opioi... Start Date: 02/10/23 Stop Date: 02/20/23 Status: Ordered metroNIDAZOLE 250 mg oral tablet 1 tablet = 250 mg, By Mouth, 3 times a day, for 10 days, # 30 tablet, 0 Refills, Acute 02/20/23 14:21:00 EST, 12/11/23 14:21:00 EST, Tablet, [facility] #[id number], Partial fill upon patient request if the prescription is for a schedule II opioid... Start Date: 02/10/23 Stop Date: 02/20/23 Status: Ordered predniSONE 20 mg oral tablet 2 tablet = 40 mg, By Mouth, Daily, PRN severe cough, # 20 tablet, 0 Refills, Maintenance, 02/10/23 14:26:00 EST, Tablet, [facility] #[id number], Partial fill upon patient request if the [...] patch, 0 Refills, Maintenance, 02/10/23 14:23:00 EST, [facility] #[id number], Partial fill upon patient request if the prescription is for a schedule II opioid drug., 1 patch Topically Every 72 hours, 152.4... Start Date: 02/10/23 Status: Ordered ZyrTEC 10 mg oral tablet 1 tablet = 10 mg, By Mouth, Daily, # 90 tablet, 3 Refills, Maintenance, 04/09/21 14:24:00 EST, Tablet, [facility] #[id number], Partial fill upon patient request if the [...] Recurrent oral herpes simplex infection Confirmed Active 04344; repeat 2031 22984 nl, repeat 2019 Social History Social History Type Response Smoking Status Former smoker; Other : Quit smoking age 35; entered on: 05/03/16 Sex Patient Care team information Care Team Personnel Name: Brock Culver MD Position: [facility] Physician - Primary Care Member Role: PCP Address: Address: [address] [place] [id number]- Care Team Related Persons Name: SAMUEL ROY Address: [address] [place] [address] Name: NAINA MCFARLANE Address: [address] [place] [address]
--- OUTSIDE RECORDS SUMMARY | 2023-06-02 10:56 | XMS_ITS | Continuity of Care Document ---
Author Name Unknown Organization [facility] Address [address] [place] [address]- Care Team Providers Care Chief Dispatcher Service Name Role Phone Brock Culver MD Primary Care Physician [phone] [facility] - 05/19/22 [facility] [address] [place] [address]- Attending Physician: Mauri Zuniga Admitting Physician: AdmtrMauri Referring Physician: Admtr, Ar8 Allergies, Adverse Reactions, Alerts [...] 03/12/07 Give n 1Location History: [facility] 2Result Comment: [03/05/2013] FLUVIRIN LOT # [id number] EXP 05/31/13 3Result Comment: DID NOT GET 4Result Comment: PT REFUSED 5Admin Note: [email or web address] [facility] 6Location History: [facility] Medications amoxicillin 875 mg oral tablet 1 tablet = 875 mg, By Mouth, 2 times a day, # 14 tablet, 0 Refills, Maintenance, 11/02/21 11:39:00 EDT, Tablet, [facility] #[id number], Partial fill upon patient request if the prescription is for a schedule II opioid drug., 152.4, cm, 11/02/21 1... Start Date: 11/02/21 Stop Date: 11/09/21 Status: Ordered escitalopram 10 mg oral tablet 1 tablet, By Mouth, Daily, # 90 tablet, 3 Refills, Maintenance, 01/27/22 7:54:00 EST, [facility] #[id number], 152.4, cm, 01/22/22 15:53:00 EST, Height Start Date: 01/27/22 Status: Ordered Flonase 50 mcg/inh nasal spray 2 sprays, Nares, Both, Daily in AM, # 16 Gm, 11 Refills, Maintenance, 11/30/20 14:56:00 EDT, [place] #[id number], Partial fill upon patient request if the [...] Refills, Maintenance, 01/22/22 15:55:00 EST, ER Tablet, [facility]... Start Date: 01/22/22 Status: Ordered predniSONE 10 mg oral tablet 1 tablet = 10 mg, By Mouth, 2 times a day, # 10 tablet, 0 Refills, Maintenance, 01/22/22 15:54:00 EST, Tablet, [facility] #[id number], Partial fill upon patient request if the prescription is for a schedule II opioid drug., 152.4, cm, 01/22/22 15... Start Date: 01/22/22 Stop Date: 01/27/22 Status: Ordered predniSONE 20 mg oral tablet 1 tablet = 20 mg, By Mouth, Daily, # 7 tablet, 2 Refills, Maintenance, 09/14/21 10:40:00 EDT, Tablet, [facility] #[id number], Partial fill upon patient request if the prescription is for a schedule II opioid drug., 152.4, cm, 09/14/21 10:23:00 ED... Start Date: 09/14/21 Stop Date: 10/05/21 Status: Ordered ProAir HFA 90 mcg/inh inhalation aerosol with adapter 2, puffs, Inhalation, Every 6 hours, PRN, # 8.5 Gm, Refills 0, Tot. Refills 0, Maintenance, 01/22/22 15:57:00 EST, Aerosol, Route to Pharmacy Electronically, [id number], [facility] #[id number], 152.4, cm, 01/22/22 15:53:... Start Date: 01/22/22 [...] 3 Refills, Maintenance, 04/09/21 14:24:00 EST, Tablet, [facility] #[id number], Partial fill upon patient request if the [...] simplex infection Confirmed Active Sinusitis Confirmed Active 89573; repeat 2030 19063 nl, repeat 2019 Social History Social History Type Response Smoking Status Former smoker; Other : Quit smoking age 35; entered on: 05/03/16 Sex Patient Care team information Care Team Personnel Name: Abiola LAM, Brock Junior Position: [facility] Primary Care Physician Member Role: PCP Address: Address: [address] [place] [address]- Care Team Related Persons Name: SAMUEL ROY Address: home [address] [place] [address] Name: NAINA MCFARLANE Address: home [address] [place] [address]
--- OUTSIDE RECORDS SUMMARY | 2023-06-02 10:56 | XMS_ITS | Continuity of Care Document ---
Author Name Unknown Organization [facility] Address [address] [place] [address]- Care Team Providers Care Director Digital Name Role Phone Brock Culver MD Primary Care Physician [facility] 04/26/22 - 05/26/22 [facility] Adult [address] [place] [address]- Attending Physician: Admtr, Ar8 Allergies, Adverse Reactions, [...] (oldterm) 03/12/07 Give n [facility] 2Result Comment: [03/05/2013] FLUVIRIN LOT # [id number] EXP 05/31/13 3Result Comment: DID NOT GET 4Result Comment: PT REFUSED 5Admin Note: [employer] [facility] 6Location History: [facility] Medications amoxicillin 875 mg oral tablet 1 tablet = 875 mg, By Mouth, 2 times a day, # 14 tablet, 0 Refills, Maintenance, 11/02/21 11:39:00 EDT, Tablet, [facility][id number], Partial fill upon patient request if the prescription is for a schedule II opioid drug., 152.4, cm, 11/02/21 1... Start Date: 11/02/21 Stop Date: 11/09/21 Status: Ordered escitalopram 10 mg oral tablet 1 tablet, By Mouth, Daily, # 90 tablet, 3 Refills, Maintenance, 01/27/22 7:54:00 EST, [facility] #[id number], 152.4, cm, 01/22/22 15:53:00 EST, Height Start Date: 01/27/22 Status: Ordered Flonase 50 mcg/inh nasal spray 2 sprays, Nares, Both, Daily in AM, # 16 Gm, 11 Refills, Maintenance, 11/30/20 14:56:00 EDT, [place],[facility] #[id number], Partial fill upon patient request if the [...] Refills, Maintenance, 01/22/22 15:55:00 EST, ER Tablet, [facility]... Start Date: 01/22/22 Status: Ordered predniSONE 10 mg oral tablet 1 tablet = 10 mg, By Mouth, 2 times a day, # 10 tablet, 0 Refills, Maintenance, 01/22/22 15:54:00 EST, Tablet, [facility] #[id number], Partial fill upon patient request if the prescription is for a schedule II opioid drug., 152.4, cm, 01/22/22 15... Start Date: 01/22/22 Stop Date: 01/27/22 Status: Ordered predniSONE 20 mg oral tablet 1 tablet = 20 mg, By Mouth, Daily, # 7 tablet, 2 Refills, Maintenance, 09/14/21 10:40:00 EDT, Tablet, [facility] #[id number], Partial fill upon patient request if the prescription is for a schedule II opioid drug., 152.4, cm, 09/14/21 10:23:00 ED... Start Date: 09/14/21 Stop Date: 10/05/21 Status: Ordered ProAir HFA 90 mcg/inh inhalation aerosol with adapter 2, puffs, Inhalation, Every 6 hours, PRN, # 8.5 Gm, Refills 0, Tot. Refills 0, Maintenance, 01/22/22 15:57:00 EST, Aerosol, Route to Pharmacy Electronically, [id number], [facility] #[id number], 152.4, cm, 01/22/22 15:53:... Start Date: 01/22/22 [...] 3 Refills, Maintenance, 04/09/21 14:24:00 EST, Tablet, [facility] #[id number], Partial fill upon patient request if the [...] simplex infection Confirmed Active Sinusitis Confirmed Active 36549; repeat 2030 24449 nl, repeat 2020 Procedures Procedure Date Related Diagnosis Body Site Status Colonoscopy 1 11/07/20 Completed 1repeat 2030 Social History Social History Type Response Smoking Status Former smoker; Other : Quit smoking age 35; entered on: 05/03/16 Sex Note * Event Display: CT Scan Abdomen, Non- BH Authored Date: * Event Display: Non BH Lab Results Authored Date: * Event Display: Non BH Lab Results Authored Date: * Event Display: Radiology Result Scanned Authored Date: * Event Display: Radiology Result Scanned Authored Date: * Rafael Leonela: PERFORM Event Display: Radiology Results Scanned Authored Date: [id number] Patient Care team information Care Team Personnel Name: Brock Culver MD Position: [facility] Primary Care Physician Member Role: PCP Address: Address: [address] [place] [address]- Care Team Related Persons Name: SAMEUL ROY Address: home [address] [place] [address] Name: NAINA MCFARLANE Address: home [address] [place] [address]
--- OUTSIDE RECORDS SUMMARY | 2023-06-02 10:56 | XMS_ITS | Continuity of Care Document ---
Author Name Unknown Organization [facility] Address [address] [place] [address]- Care Team Providers Care Fabrication And Assembly Supervisor Name Role Phone Brock Culver MD Primary Care Physician [phone] [facility] 10[facility]22 - 11/06/22 [facility] Adult [address] [place] [address]- Attending Physician: Brock Culver MD Allergies, Adverse Reactions, [...] HOSPITAL 2Result Comment: [03/05/2013] FLUVIRIN LOT # [id number] EXP 05/31/13 3Location History: [facility] Medications doxycycline hyclate 100 mg oral capsule 1 capsule = 100 mg, By Mouth, 2 times a day, # 20 capsule, 0 Refills, Maintenance, 10/30/22 15:03:00 EDT, [place], [facility] #[id number], Partial fill upon patient request if the prescription is for a schedule II opioid drug., 152.4, cm, ... Start Date: 10/30/22 Status: Ordered escitalopram 10 mg oral tablet 1 tablet, By Mouth, Daily, # 90 tablet, 3 Refills, Maintenance, 09/05/22 14:05:00 EDT, [facility] #[id number], 152.4, cm, 09/05/22 12:54:00 EDT, Height Start Date: 09/05/22 Status: Ordered Flonase 50 mcg/inh nasal spray 2 sprays, Nares, Both, Daily in AM, # 16 Gm, 11 Refills, Maintenance, 11/30/20 14:56:00 EDT, [place],[facility] #[id number], Partial fill upon patient request if the prescription is for a schedule II opioid drug., 2 sprays Nares, Both Daily in AM,... Start Date: 11/30/20 Status: Ordered predniSONE 20 mg oral tablet See Instructions, 2 tablets daily for 5 days then 1 tablet daily for 5 days, # 15 tablet, 0 Refills, Maintenance, 10/30/22 15:03:00 EDT, Tablet, [facility] #[id number], Partial fill upon patientrequest if the prescription is for a schedule II op... Start Date: 10/30/22 Status: Ordered ProAir HFA 90 mcg/inh inhalation aerosol with adapter 2, puffs, Inhalation, Every 6 hours, PRN, # 8.5 Gm, Refills 0, Tot. Refills 0, Maintenance, 09/05/22 14:04:00 EDT, Aerosol, Route to Pharmacy Electronically, [id number], [facility] #[id number], 152.4, cm, 09/05/22 12:54:... Start Date: 09/05/22 Status: Ordered Protonix 20 mg oral delayed release tablet 1 tablet = 20 mg, By Mouth, Daily, # 30 tablet, 6 Refills, Maintenance, 11/02/21 11:34:00 EDT, CR Tablet, 152.4, cm, 11/02/21 11:15:00 EDT, Height Start Date: 11/02/21 Status: Ordered ZyrTEC 10 mg oral tablet 1 tablet = 10 mg, By Mouth, Daily, # 90 tablet, 3 Refills, Maintenance, 04/09/21 14:24:00 EST, Tablet, [facility] #[id number], Partial fill upon patient request if the [...] simplex infection Confirmed Active Sinusitis Confirmed Active 88512; repeat 2031 78288 nl, repeat 2020 Vital Signs Most recent to oldest [Reference Range]: 1 Height 152.40 cm (10/30/22 2:46 PM) Weight 69.1 kg (10/30/22 2:46 PM) Oxygen Saturation [94-100 %] 97 % (10/30/22 2:46 PM) Pulse Rate [55-90 bpm] 82 bpm (10/30/22 2:46 PM) Body Mass Index [18.5-24.99 kg/m2] 29.75 kg/m2 *H* (10/30/22 2:46 PM) Blood Pressure [90-138/55-84 mm Hg] 114/ 74mm Hg (10/30/22 2:46 PM) Temperature [96.8-100.4 DegF] 99.5 DegF (10/30/22 2:46 PM) Mode of Delivery (Oxygen) Room air (10/30/22 2:46 PM) Blood pressure sites Arm, left (10/30/22 2:46 PM) Temperature Route Oral (10/30/22 2:46 PM) Weight Obtained Via Standing scale (10/30/22 2:46 PM) Social History Social History Type Response Smoking Status Former smoker; Other : Quit smoking age 35; entered on: 05/03/16 Sex Patient Care team information Care Team Personnel Name: Abiola ALM, Brock Junior Position: [facility] Physician - Primary Care Member Role: PCP Address: Address: [address] [place] [address]- [place] Care Team Related Persons Name: SAMUEL ROY Address: home [address] [place] [address] Name: NAINA MCFARLANE Address: home [address] [place] [address]
--- OUTSIDE RECORDS SUMMARY | 2023-06-02 10:56 | XMS_ITS | Continuity of Care Document ---
Author Name Unknown Organization [facility] Address [address] [place] [address]- Care Team Providers Care Administrative Support Technician Name Role Phone Brock Culver MD Primary Care Physician [phone] [facility] 09[facility]11[facility]21 - 10/11/21 [facility] [address] [place] [address]- Allergies, Adverse Reactions, Alerts No Known Allergies [...] 03/12/07 Give n 1Location History: [facility] 2Result Comment: [03/05/2013] FLUVIRIN LOT # [id number] EXP 05/31/13 3Result Comment: DID NOT GET 4Result Comment: PT REFUSED 5Admin Note: [employer] [facility] [place]Location History: [facility] Medications escitalopram 10 mg oral tablet 1 tablet = 10 mg, By Mouth, Daily, # 30 tablet, 5 Refills, Maintenance, 10/30/20 8:13:00 EDT, Tablet, [facility] #[id number], 152.4, cm, 10/13/20 7:01:00 EDT, Height Start Date: 10/30/20 Status: Ordered Flonase 50 mcg/inh nasal spray 2 sprays, Nares, Both, Daily in AM, # 16 Gm, 11 Refills, Maintenance, 11/30/20 14:56:00 EDT, [place],[facility] #[id number], Partial fill upon patient request if the prescription is for a schedule II opioid drug., 2 sprays Nares, Both Daily in AM,... Start Date: 11/30/20 Status: Ordered predniSONE 20 mg oral tablet 1 tablet = 20 mg, By Mouth, Daily, # 7 tablet, 2 Refills, Maintenance, 09/14/21 10:40:00 EDT, Tablet, [facility] #[id number], Partial fill upon patient request if the prescription is for a schedule II opioid drug., 152.4, cm, 09/14/21 10:23:00 ED... Start Date: 09/14/21 Stop Date: 10/05/21 Status: Ordered ZyrTEC 10 mg oral tablet 1 tablet = 10 mg, By Mouth, Daily, # 90 tablet, 3 Refills, Maintenance, 04/09/21 14:24:00 EST, Tablet, [facility] #[id number], Partial fill upon patient request if the [...] herpes simple x infection(Confirmed) Active Sinusitis(Confirmed) Active 04785; repeat 2030 09281 nl, repeat 2019 Social History Social History Type Response Smoking Status Former smoker; Other : Quit smoking age 35; entered on: 05/03/16 Sex
--- OUTSIDE RECORDS SUMMARY | 2023-06-02 10:56 | XMS_ITS | Continuity of Care Document ---
Author Name Unknown Organization [facility] Address [address] [place] [address]- Care Team Providers Care Puller Out Name Role Phone Brock Culver MD Primary Care Physician [phone] [facility] 11[facility]21 - 12/02/21 [facility] [address] [place] [address]- Allergies, Adverse Reactions, Alerts No Known Allergies [...] vaccine 05/03/16 Given FluLaval (oldterm) 4, 5 11/15/12 Given Zoster Vaccine Live 6 03/04/11 Recorded Tet/Diphth/Acel, Pertussis (oldterm) 03/12/07 Give n 1Location History: [facility] 2Result Comment: [03/05/2013] FLUVIRIN LOT # [id number] EXP 05/31/13 3Result Comment: DID NOT GET 4Result Comment: PT REFUSED 5Admin Note: [employer] [facility] 6Location History: [facility] Medications amoxicillin 875 mg oral tablet 1 tablet = 875 mg, By Mouth, 2 times a day, # 14 tablet, 0 Refills, Maintenance, 11/02/21 11:39:00 EDT, Tablet, [facility] #[id number], Partial fill upon patient request if the prescription is for a schedule II opioid drug., 152.4, cm, 11/02/21 1... Start Date: 11/02/21 Stop Date: 11/09/21 Status: Ordered escitalopram 10 mg oral tablet 1 tablet = 10 mg, By Mouth, Daily, Please call to schedule a follow up office visit at [phone], # 30 tablet, 1 Refills, Maintenance, 11/09/21 11:46:00 EDT, Tablet, [facility] #[id number], 152.4, cm, 11/02/21 11:15:00 EDT, Height Start Date: 11/09/21 Status: Ordered Flonase 50 mcg/inh nasal spray 2 sprays, Nares, Both, Daily in AM, # 16 Gm, 11 Refills, Maintenance, 11/30/20 14:56:00 EDT, [place],[facility] #[id number], Partial fill upon patient request if the prescription is for a schedule II opioid drug., 2 sprays Nares, Both Daily in AM,... Start Date: 11/30/20 Status: Ordered predniSONE 20 mg oral tablet 1 tablet = 20 mg, By Mouth, Daily, # 7 tablet, 2 Refills, Maintenance, 09/14/21 10:40:00 EDT, Tablet, [facility] #[id number], Partial fill upon patient request if the prescription is for a schedule II opioid drug., 152.4, cm, 09/14/21 10:23:00 ED... Start Date: 09/14/21 Stop Date: 10/05/21 Status: Ordered Protonix 20 mg oral delayed release tablet 1 tablet = 20 mg, By Mouth, Daily, # 30 tablet, 6 Refills, Maintenance, 11/02/21 11:34:00 EDT, CR Tablet, 152.4, cm, 11/02/21 11:15:00 EDT, Height Start Date: 11/02/21 Status: Ordered ZyrTEC 10 mg oral tablet 1 tablet = 10 mg, By Mouth, Daily, # 90 tablet, 3 Refills, Maintenance, 04/09/21 14:24:00 EST, Tablet, [facility] #[id number], Partial fill upon patient request if the [...] simplex infection Confirmed Active Sinusitis Confirmed Active 32474; repeat 2031 53677 nl, repeat 2020 Social History Social History Type Response Smoking Status Former smoker; Other : Quit smoking age 35; entered on: 05/03/16 Sex Patient Care team information Personnel Name: Abiloa LAM, Brock Junior Address: Address: [address] [place] [address] [place]
--- OUTSIDE RECORDS SUMMARY | 2023-06-02 10:57 | XMS_ITS | Continuity of Care Document ---
Author Name Unknown Organization [facility] Address [address] [place] [address]- Care Team Providers Care Route Relief Driver Name Role Phone Brock Culver MD Primary Care Physician [facility]s): 05/23/20 - 05/30/20 [facility] Adult [address] [place] [address]- Encounter Diagnosis Chronic cough(Discharge Diagnosis) - 05/23/20 Attending Physician: Brock Culver MD Allergies, Adverse Reactions, Alerts Substance Reaction Severity [...] DID NOT GET 2Location History: [facility] 3Result Comment: [03/05/2013] FLUVIRIN LOT # [id number] EXP 05/31/13 4Result Comment: PT REFUSED 5Admin Note: [employer] [facility] 6Location History: [facility] Medications escitalopram 10 mg oral tablet 1 tablet = 10 mg, By Mouth, Daily, # 90 tablet, 4 Refills, Maintenance, 05/06/19 13:44:00 EST, Tablet, [facility] #[id number], 152.4, cm, 03/18/19 15:27:00 EST, Height Start Date: 05/06/19 Status: Ordered levoFLOXacin 500 mg oral tablet 1 tablet = 500 mg, By Mouth, Every 24 hours, for 10 days, # 10 tablet, 0 Refills, Acute 06/04/20 14:08:00 EDT, 05/25/20 14:08:00 EDT, Tablet, [facility] #[id number], Partial fill upon patient request if the prescription is for a schedule II opioi... Start Date: 05/25/20 Stop Date: 06/04/20 Status: Ordered metroNIDAZOLE 250 mg oral tablet 1 tablet = 250 mg, By Mouth, 3 times a day, for 10 days, # 30 tablet, 0 Refills, Acute 06/09/20 10:43:00 EDT, 05/30/20 10:43:00 EDT, Tablet, [facility] #[id number], Partial fill upon patient request if the prescription is for a schedule II opioid... Start Date: 05/30/20 Stop Date: 06/09/20 Status: Ordered predniSONE 20 mg oral tablet 1 tablet = 20 mg, By Mouth, Daily, for 10 days, # 10 tablet, 0 Refills, Acute 06/02/20 16:33:00 EDT, 05/23/20 16:33:00 EDT, [facility] #[id number], 152.4, cm, 05/23/20 16:13:00 EDT, Height Start Date: 05/23/20 Stop Date: 06/02/20 Status: Ordered Singulair 10 mg oral tablet 10 mg, 1, tablet, By Mouth, Daily, # 90 tablet, Refills 1, Tot. Refills 1, Maintenance, 02/07/20 15:07:00 EST, Route to Pharmacy Electronically, [facility] #[id number], 152.4, cm, 01/10/20 11:58:00 EST, Height Start [...] herpes simple x infection(Confirmed) Active Sinusitis(Confirmed) Active 17033 nl, repeat 2019 Diagnosis Diagnosis Type Effective Dates Health Status Cl inical Service Informant Chronic cough Discharge Diagnosis 05/23/20 Vital Signs Most recent to oldest [Reference Range]: 1 Height 152.40 cm (05/23/20 4:13 PM) Social History Social History Type Response Smoking Status Former smoker; Other : Quit smoking age 35; entered on: 05/03/16 Sex
--- OUTSIDE RECORDS SUMMARY | 2023-06-02 10:57 | XMS_ITS | Continuity of Care Document ---
Author Name Unknown Organization [facility] Address [address] [place] [address]- Care Team Providers Care Rolfer Name Role Phone Brock Culver MD Primary Care Physician [facility]s): 06/14/22 - 07/14/22 [facility] Adult [address] [place] [address]- Allergies, Adverse Reactions, Alerts No Known Allergies [...] 03/12/07 Give n 1Location History: [facility] 2Result Comment: [03/05/2013] FLUVIRIN LOT # [id number] EXP 05/31/13 3Result Comment: DID NOT GET 4Result Comment: PT REFUSED 5Admin Note: [employer] [facility] 6Location History: [facility] Medications amoxicillin 875 mg oral tablet 1 tablet = 875 mg, By Mouth, 2 times a day, # 14 tablet, 0 Refills, Maintenance, 11/02/21 11:39:00 EDT, Tablet, [facility] #[id number], Partial fill upon patient request if the prescription is for a schedule II opioid drug., 152.4, cm, 11/02/21 1... Start Date: 11/02/21 Stop Date: 11/09/21 Status: Ordered escitalopram 10 mg oral tablet 1 tablet, By Mouth, Daily, # 90 tablet, 3 Refills, Maintenance, 01/27/22 7:54:00 EST, [facility] #[id number], 152.4, cm, 01/22/22 15:53:00 EST, Height Start Date: 01/27/22 Status: Ordered Flonase 50 mcg/inh nasal spray 2 sprays, Nares, Both, Daily in AM, # 16 Gm, 11 Refills, Maintenance, 11/30/20 14:56:00 EDT, [place],[facility] #[id number], Partial fill upon patient request if the [...] Refills, Maintenance, 01/22/22 15:55:00 EST, ER Tablet, [facility] #0... Start Date: 01/22/22 Status: Ordered predniSONE 10 mg oral tablet 1 tablet = 10 mg, By Mouth, 2 times a day, # 10 tablet, 0 Refills, Maintenance, 06/07/22 16:01:00 EDT, Tablet, [facility] #25606, Partial fill upon patient request if the prescription is for a schedule II opioid drug., 152.4, cm, 01/22/22 15... Start Date: 06/07/22 Stop Date: 06/12/22 Status: Ordered predniSONE 20 mg oral tablet 1 tablet = 20 mg, By Mouth, Daily, # 7 tablet, 2 Refills, Maintenance, 09/14/21 10:40:00 EDT, Tablet, [facility] #[id number], Partial fill upon patient request if the prescription is for a schedule II opioid drug., 152.4, cm, 09/14/21 10:23:00 ED... Start Date: 09/14/21 Stop Date: 10/05/21 Status: Ordered ProAir HFA 90 mcg/inh inhalation aerosol with adapter 2, puffs, Inhalation, Every 6 hours, PRN, # 8.5 Gm, Refills 0, Tot. Refills 0, Maintenance, 01/22/22 15:57:00 EST, Aerosol, Route to Pharmacy Electronically, [id number], [facility] #[id number], 152.4, cm, 01/22/22 15:53:... Start Date: 01/22/22 [...] 3 Refills, Maintenance, 04/09/21 14:24:00 EST, Tablet, [facility] #[id number], Partial fill upon patient request if the [...] simplex infection Confirmed Active Sinusitis Confirmed Active 10825; repeat 2030 22689 nl, repeat 2019 Social History Social History Type Response Smoking Status Former smoker; Other : Quit smoking age 35; entered on: 05/03/16 Sex Patient Care team information Care Team Personnel Name: Abiola LAM, Brock Junior Position: [facility] Primary Care Physician Member Role: PCP Address: Address: [address] [place] [address]- Care Team Related Persons Name: SAMUEL ROY Address: home [address] [place] [address] Name: NAINA MCFARALNE Address: home [address] [place] [address]
--- OUTSIDE RECORDS SUMMARY | 2023-06-02 10:57 | XMS_ITS | Continuity of Care Document ---
Author Name Unknown Organization [facility] Address [address] [place] [address]- Care Team Providers Care Health And Wellness Advisor Name Role Phone Abiola LAM, Brock Junior Primary Care Physician [facility] Date[facility]s): 11[facility]28/22 - 12/28/22 [facility] Adult [address] [place] [address]- Allergies, Adverse Reactions, Alerts No Known Allergies [...] 03/12/07 Give n 1Location History: [facility] 2Result Comment: [03/05/2013] FLUVIRIN LOT # [id number] EXP 05/31/13 3Location History: [facility] Medications doxycycline hyclate 100 mg oral capsule 1 capsule = 100 mg, By Mouth, 2 times a day, # 20 capsule, 0 Refills, Maintenance, 10/30/22 15:03:00 EDT, Capsule, [facility] #[id number], Partial fill upon patient request if the prescription is for a schedule II opioid drug., 152.4, cm, ... Start Date: 10/30/22 Status: Ordered escitalopram 10 mg oral tablet 1 tablet, By Mouth, Daily, # 90 tablet, 3 Refills, Maintenance, 09/05/22 14:05:00 EDT, [facility] #[id number], 152.4, cm, 09/05/22 12:54:00 EDT, Height Start Date: 09/05/22 Status: Ordered Flonase 50 mcg/inh nasal spray 2 sprays, Nares, Both, Daily in AM, # 16 Gm, 11 Refills, Maintenance, 11/30/20 14:56:00 EDT, [place],[facility] #[id number], Partial fill upon patient request if the prescription is for a schedule II opioid drug., 2 sprays Nares, Both Daily in AM,... Start Date: 11/30/20 Status: Ordered predniSONE 20 mg oral tablet See Instructions, 2 tablets daily for 5 days then 1 tablet daily for 5 days, # 15 tablet, 0 Refills, Maintenance, 10/30/22 15:03:00 EDT, Tablet, [facility] #[id number], Partial fill upon patientrequest if the prescription is for a schedule II op... Start Date: 10/30/22 Status: Ordered ProAir HFA 90 mcg/inh inhalation aerosol with adapter 2, puffs, Inhalation, Every 6 hours, PRN, # 8.5 Gm, Refills 0, Tot. Refills 0, Maintenance, 09/05/22 14:04:00 EDT, Aerosol, Route to Pharmacy Electronically, [id number], [facility] #[id number], 152.4, cm, 09/05/22 12:54:... Start Date: 09/05/22 [...] 3 Refills, Maintenance, 04/09/21 14:24:00 EST, Tablet, [facility] #[id number], Partial fill upon patient request if the [...] simplex infection Confirmed Active Sinusitis Confirmed Active 85218; repeat 2030 42381 nl, repeat 2020 Social History Social History Type Response Smoking Status Former smoker; Other : Quit smoking age 35; entered on: 05/03/16 Sex Patient Care team information Care Team Personnel Name: Abiola LAM, Brock Junior Position: [facility] Physician - Primary Care Member Role: PCP Address: Address: [address] [place] [id number]- [place] Care Team Related Persons Name: SAMUEL ROY Address: home [address] [place] [address] Name: NAINA MCFARLANE Address: home [address] [place] [address]
--- OUTSIDE RECORDS SUMMARY | 2023-06-02 10:57 | XMS_ITS | Continuity of Care Document ---
Author Name Unknown Organization [facility] Address [address] [place] [address]- Care Team Providers Care Machine Veneer Repairer Name Role Phone Brock Culver MD Primary Care Physician [facility] Date(s): 11/02/21 - 12/02/21 [facility] Adult [address] [place] [address]- Attending Physician: Admtr, Ar8 Allergies, Adverse Reactions, [...] (oldterm) 03/12/07 Give n [facility] 2Result Comment: [03/05/2013] FLUVIRIN LOT # [id number] EXP 05/31/13 3Result Comment: DID NOT GET 4Result Comment: PT REFUSED 5Admin Note: [employer] [facility] 6Location History: [facility] Medications amoxicillin 875 mg oral tablet 1 tablet = 875 mg, By Mouth, 2 times a day, # 14 tablet, 0 Refills, Maintenance, 11/02/21 11:39:00 EDT, Tablet, [facility] #[id number], Partial fill upon patient request if the prescription is for a schedule II opioid drug., 152.4, cm, 11/02/21 1... Start Date: 11/02/21 Stop Date: 11/09/21 Status: Ordered escitalopram 10 mg oral tablet 1 tablet = 10 mg, By Mouth, Daily, Please call to schedule a follow up office visit at [phone], # 30 tablet, 1 Refills, Maintenance, 11/09/21 11:46:00 EDT, [facility][id number], 152.4, cm, 11/02/21 11:15:00 EDT, Height Start Date: 11/09/21 Status: Ordered Flonase 50 mcg/inh nasal spray 2 sprays, Nares, Both, Daily in AM, # 16 Gm, 11 Refills, Maintenance, 11/30/20 14:56:00 EDT, [place] #[id number], Partial fill upon patient request if the prescription is for a schedule II opioid drug., 2 sprays Nares, Both Daily in AM,... Start Date: 11/30/20 Status: Ordered predniSONE 20 mg oral tablet 1 tablet = 20 mg, By Mouth, Daily, # 7 tablet, 2 Refills, Maintenance, 09/14/21 10:40:00 EDT, Tablet, [facility] #[id number], Partial fill upon patient request if the [...] 3 Refills, Maintenance, 04/09/21 14:24:00 EST, Tablet, [facility] #[id number], Partial fill upon patient request if the [...] simplex infection Confirmed Active Sinusitis Confirmed Active 82898; repeat 2030 08290 nl, repeat 2020 Procedures Procedure Date Related Diagnosis Body Site Status Colonoscopy 1 11/07/20 Completed 1repeat 2030 Social History Social History Type Response Smoking Status Former smoker; Other : Quit smoking age 35; entered on: 05/03/16 Sex Patient Care team information Personnel Name: Abiola LAM, Brock Junior Address: Address: [address] [place] [id number]
--- OUTSIDE RECORDS SUMMARY | 2023-06-02 10:57 | XMS_ITS | Continuity of Care Document ---
Author Name Unknown Organization [facility] Address [address] [place] [address]- Care Team Providers Care Senior Geologist Name Role Phone Brock Culver MD Primary Care Physician [phone] Encounter [facility] Date(s): 02/02/21 - 03/04/21 [facility] [address] [place] [address]- Attending Physician: Admtr, Wilman8 Admitting Physician: Admtr, Ar8 Referring Physician: Admtr, Ar8 Allergies, Adverse Reactions, Alerts Substance Reaction Severity [...] 03/12/07 Give n 1Location History: [facility] 2Result Comment: [03/05/2013] FLUVIRIN LOT # [id number] EXP 05/31/13 3Result Comment: DID NOT GET 4Result Comment: PT REFUSED 5Admin Note: [facility] 6Location History: [facility] Medications CeleBREX 200 mg oral capsule 1 capsule = 200 mg, By Mouth, Daily, # 90 capsule, 0 Refills, Maintenance, 01/22/21 14:58:00 EST, Capsule, [facility] #[id number], Partial fill upon patient request if the prescription is for a schedule II opioid drug., 152.4, cm, 11/30/20 14:28:... Start Date: 01/22/21 Stop Date: 04/22/21 Status: Ordered Diflucan 150 mg oral tablet 1 tablet = 150 mg, By Mouth, Once, # 1 tablet, 0 Refills, Soft Stop, 01/26/21 13:52:00 EST, [facility] #[id number], 152.4, cm, 11/30/20 14:28:00 EDT, Height Start Date: 01/26/21 Status: Ordered doxycycline hyclate 100 mg oral capsule 1 capsule = 100 mg, By Mouth, 2 times a day, # 20 capsule, 0 Refills, Maintenance, 02/08/21 10:39:00 EST, Capsule, [facility] #[id number], Partial fill upon patient request if the prescription is for a schedule II opioid drug., 152.4, cm, ... Start Date: 02/08/21 Status: Ordered escitalopram 10 mg oral tablet 1 tablet = 10 mg, By Mouth, Daily, # 30 tablet, 5 Refills, Maintenance, 10/30/20 8:13:00 EDT, Tablet, [facility] #50006, 152.4, cm, 10/13/20 7:01:00 EDT, Height Start Date: 10/30/20 Status: Ordered Flonase 50 mcg/inh nasal spray 2 sprays, Nares, Both, Daily in AM, # 16 Gm, 11 Refills, Maintenance, 11/30/20 14:56:00 EDT, [place],[facility] #62408, Partial fill upon patient request if the prescription is for a schedule II opioid drug., 2 sprays Nares, Both Daily in AM,... Start Date: 11/30/20 Status: Ordered Macrobid macrocrystals-monohydrate 100 mg oral capsule 1 capsule = 100 mg, By Mouth, 2 times a day, for 5 days, # 10 capsule, 0 Refills, Acute 03/06/21 15:21:00 EST, 03/01/21 15:21:00 EST, Capsule, [facility] #[id number], Partial fill upon patient request if the prescription is for a schedule II opio... Start Date: 03/01/21 Stop Date: 03/06/21 Status: Ordered Problem List Condition Effective Dates Status Health Status Inform ant Acute bronchitis(Confirmed) Active After menopause(Confirmed) Active Allergic rhinitis(Confirmed) Active Chronic cough(Confirmed) Active Colonoscopy(Confirmed) 1 Active Depression(Confirmed) Active Diverticulitis(Confirmed) Active Female climacteric state(Confirmed) Active Acid reflux(Confirmed) Active H/O heartburn(Confirmed) Active Recurrent oral herpes simple x infection(Confirmed) Active Sinusitis(Confirmed) Active 24679 nl, repeat 2020 Social History Social History Type Response Smoking Status Former smoker; Other : Quit smoking age 35; entered on: 05/03/16 Sex
--- OUTSIDE RECORDS SUMMARY | 2023-06-02 10:57 | XMS_ITS | Continuity of Care Document ---
Author Name Unknown Organization [facility] Address [address] [place] [address]- Care Team Providers Care Precision Dancer Name Role Phone Abiola LAM, Brock Junior Primary Care Physician [phone] [facility]s): 01/10/20 - 02/09/20 [facility] Adult [address] [place] [address]- Attending Physician: Admtr, Ar8 Allergies, Adverse Reactions, Alerts Substance Reaction Severity Status NKA Active Immunizations Given and Recorded Vaccine Date Status Refusal Reason influenza virus vaccine, inactivated 11/17/18 Jay rded influenza virus vaccine, inactivated 12/11/17 Give n influenza virus vaccine, inactivated 11/17/16 Jay rded influenza virus vaccine, inactivated 11/04/15 Give n influenza virus vaccine, inactivated 02/14/15 Give n influenza virus vaccine, inactivated 12/01/13 Jay rded influenza virus vaccine, inactivated 1, 2 02/27/13 Recorded pneumococcal 23-valent vaccine 04/18/17 Given Hepatitis A Adult Vaccine 04/18/17 Given tetanus/diphtheria/pertussis, acel(Tdap) 04/18/17 Given pneumococcal 13-valent vaccine 05/03/16 Given FluLaval (oldterm) 3, 4 01/16/12 Given Zoster Vaccine Live 5 03/04/11 Recorded Influenza Virus Vaccine (oldterm) 6 11/08/08 Given Tet/Diphth/Acel, Pertussis (oldterm) 03/12/07 Give n 1Location History: [facility] [place] 2Result Comment: [03/05/2013] FLUVIRIN LOT # [id number] EXP 05/31/13 3Result Comment: PT REFUSED 4Admin Note: [employer] [facility] 5Location History: [facility] pharmacy [facility] 6Result Comment: DID NOT GET Medications Activella oral tablet 1 tablet, By Mouth, Daily, # 28 tablet, 3 Refills Start Date: 11/03/08 Status: Ordered escitalopram 10 mg oral tablet 1 tablet = 10 mg, By Mouth, Daily, # 90 tablet, 4 Refills, Maintenance, 05/06/19 13:44:00 EST, Tablet, [facility] #[id number], 152.4, cm, 03/18/19 15:27:00 EST, Height Start Date: 05/06/19 Status: Ordered Singulair 10 mg oral tablet 10 mg, 1, tablet, By Mouth, Daily, # 90 tablet, Refills 1, Tot. Refills 1, Maintenance, 02/07/20 15:07:00 EST, Route to Pharmacy Electronically, [facility] #[id number], 152.4, cm, 01/10/20 11:58:00 EST, Height Start [...] herpes simple x infection(Confirmed) Active Sinusitis(Confirmed) Active 46786 nl, repeat 2019 Social History Social History Type Response Smoking Status Former smoker; Other : Quit smoking age 35; entered on: 05/03/16 Sex
--- OUTSIDE RECORDS SUMMARY | 2023-06-02 10:57 | XMS_ITS | Continuity of Care Document ---
Author Name Unknown Organization [facility] Address [address] [place] [address]- Care Team Providers Care Industrial Relations Representative Name Role Phone Abiola LAM, Brock Junior Primary Care Physician [facility] Date(s): 03/13/22 - 04/12/22 [facility] Adult [address] [place] [address]- Allergies, Adverse Reactions, Alerts No Known Allergies [...] (oldterm) 03/12/07 Give n [facility] 2Result Comment: [03/05/2013] FLUVIRIN LOT # [id number] EXP 05/31/13 3Result Comment: DID NOT GET 4Result Comment: PT REFUSED 5Admin Note: [employer] [facility] Medications amoxicillin 875 mg oral tablet 1 tablet = 875 mg, By Mouth, 2 times a day, # 14 tablet, 0 Refills, Maintenance, 11/02/21 11:39:00 EDT, Tablet, [facility] #[id number], Partial fill upon patient request if the prescription is for a schedule II opioid drug., 152.4, cm, 11/02/21 1... Start Date: 11/02/21 Stop Date: 11/09/21 Status: Ordered escitalopram 10 mg oral tablet 1 tablet, By Mouth, Daily, # 90 tablet, 3 Refills, Maintenance, 01/27/22 7:54:00 EST, [facility] #[id number], 152.4, cm, 01/22/22 15:53:00 EST, Height Start Date: 01/27/22 Status: Ordered Flonase 50 mcg/inh nasal spray 2 sprays, Nares, Both, Daily in AM, # 16 Gm, 11 Refills, Maintenance, 11/30/20 14:56:00 EDT, [place],[facility] #60714, Partial fill upon patient request if the [...] Refills, Maintenance, 01/22/22 15:55:00 EST, ER Tablet, [facility] #0... Start Date: 01/22/22 Status: Ordered predniSONE 10 mg oral tablet 1 tablet = 10 mg, By Mouth, 2 times a day, # 10 tablet, 0 Refills, Maintenance, 01/22/22 15:54:00 EST, Tablet, [facility] #[id number], Partial fill upon patient request if the prescription is for a schedule II opioid drug., 152.4, cm, 01/22/22 15... Start Date: 01/22/22 Stop Date: 01/27/22 Status: Ordered predniSONE 20 mg oral tablet 1 tablet = 20 mg, By Mouth, Daily, # 7 tablet, 2 Refills, Maintenance, 09/14/21 10:40:00 EDT, Tablet, [facility] #[id number], Partial fill upon patient request if the prescription is for a schedule II opioid drug., 152.4, cm, 09/14/21 10:23:00 ED... Start Date: 09/14/21 Stop Date: 10/05/21 Status: Ordered ProAir HFA 90 mcg/inh inhalation aerosol with adapter 2, puffs, Inhalation, Every 6 hours, PRN, # 8.5 Gm, Refills 0, Tot. Refills 0, Maintenance, 01/22/22 15:57:00 EST, Aerosol, Route to Pharmacy Electronically, [id number], [facility] #[id number], 152.4, cm, 01/22/22 15:53:... Start Date: 01/22/22 [...] 3 Refills, Maintenance, 04/09/21 14:24:00 EST, Tablet, [facility] #[id number], Partial fill upon patient request if the [...] simplex infection Confirmed Active Sinusitis Confirmed Active 91820; repeat 2030 56094 nl, repeat 2019 Social History Social History Type Response Smoking Status Former smoker; Other : Quit smoking age 35; entered on: 05/03/16 Sex Patient Care team information Care Team Personnel Name: Abiola LAM, Brock Junior Position: [facility] Primary Care Physician Member Role: PCP Address: Address: [address] [place] [address]- Care Team Related Persons Name: SAMUEL ROY Address: home [address] [place] [address] Name: NAINA MCFARLANE Address: [address] [place] [address]
--- OUTSIDE RECORDS SUMMARY | 2023-06-02 10:57 | XMS_ITS | Continuity of Care Document ---
Author Name Unknown Organization [facility] Address [address] [place] [address]- Care Team Providers Care Health Worker Name Role Phone Brock Culver MD Primary Care Physician [facility]s): 09[facility]19[facility]20 - 10/20/20 [facility] Adult [address] [place] [address]- Attending Physician: Brock Culver MD Allergies, Adverse [...] Comment: DID NOT GET 2Location History: [facility] [place] 3Result Comment: [03/05/2013] FLUVIRIN LOT # [id number] EXP 05/31/13 4Result Comment: PT REFUSED 5Admin Note: [employer] [facility] 6Location History: [facility] Medications Flonase 50 mcg/inh nasal spray 2 sprays, Nares, Both, Daily in AM, # 16 Gm, 11 Refills, Maintenance, 09/05/20 11:32:00 EDT, [place],[facility] #[id number], Partial fill upon patient request if the prescription is for a schedule II opioid drug., 2 sprays Nares, Both Daily in AM,... Start Date: 09/05/20 Status: Ordered Problem List Condition Effective Dates Status Health Status Inform ant Acute bronchitis(Confirmed) Active After menopause(Confirmed) Active Allergic rhinitis(Confirmed) Active Chronic cough(Confirmed) Active Colonoscopy(Confirmed) 1 Active Depression(Confirmed) Active Diverticulitis(Confirmed) Active Female climacteric state(Confirmed) Active Acid reflux(Confirmed) Active H/O heartburn(Confirmed) Active Recurrent oral herpes simple x infection(Confirmed) Active Sinusitis(Confirmed) Active 18856 nl, repeat 2019 Social History Social History Type Response Smoking Status Former smoker; Other : Quit smoking age 35; entered on: 05/03/16 Sex
--- OUTSIDE RECORDS SUMMARY | 2023-06-02 10:57 | XMS_ITS | Continuity of Care Document ---
Author Name Unknown Organization [facility] Address [address] [place] [address]- Care Team Providers Care Tar Heat Exchanger Cleaner Name Role Phone Brock Culver MD Primary Care Physician [facility] Date(s): 04/23/22 - 05/23/22 [facility] Adult [address] [place] [address]- Allergies, Adverse Reactions, Alerts No Known Allergies [...] 03/12/07 Give n 1Location History: [facility] 2Result Comment: [03/05/2013] FLUVIRIN LOT # [id number] EXP 05/31/13 3Result Comment: DID NOT GET 4Result Comment: PT REFUSED 5Admin Note: [facility] 6Location History: [facility] pharmacy [facility] Medications amoxicillin 875 mg oral tablet 1 tablet = 875 mg, By Mouth, 2 times a day, # 14 tablet, 0 Refills, Maintenance, 11/02/21 11:39:00 EDT, Tablet, [facility] #[id number], Partial fill upon patient request if the prescription is for a schedule II opioid drug., 152.4, cm, 11/02/21 1... Start Date: 11/02/21 Stop Date: 11/09/21 Status: Ordered escitalopram 10 mg oral tablet 1 tablet, By Mouth, Daily, # 90 tablet, 3 Refills, Maintenance, 01/27/22 7:54:00 EST, [facility] #[id number], 152.4, cm, 01/22/22 15:53:00 EST, Height Start Date: 01/27/22 Status: Ordered Flonase 50 mcg/inh nasal spray 2 sprays, Nares, Both, Daily in AM, # 16 Gm, 11 Refills, Maintenance, 11/30/20 14:56:00 EDT, [place],[facility] #[id number], Partial fill upon patient request if the [...] Refills, Maintenance, 01/22/22 15:55:00 EST, ER Tablet, [facility] #0... Start Date: 01/22/22 Status: Ordered predniSONE 10 mg oral tablet 1 tablet = 10 mg, By Mouth, 2 times a day, # 10 tablet, 0 Refills, Maintenance, 01/22/22 15:54:00 EST, Tablet, [facility] #[id number], Partial fill upon patient request if the prescription is for a schedule II opioid drug., 152.4, cm, 01/22/22 15... Start Date: 01/22/22 Stop Date: 01/27/22 Status: Ordered predniSONE 20 mg oral tablet 1 tablet = 20 mg, By Mouth, Daily, # 7 tablet, 2 Refills, Maintenance, 09/14/21 10:40:00 EDT, Tablet, [facility] #[id number], Partial fill upon patient request if the prescription is for a schedule II opioid drug., 152.4, cm, 09/14/21 10:23:00 ED... Start Date: 09/14/21 Stop Date: 10/05/21 Status: Ordered ProAir HFA 90 mcg/inh inhalation aerosol with adapter 2, puffs, Inhalation, Every 6 hours, PRN, # 8.5 Gm, Refills 0, Tot. Refills 0, Maintenance, 01/22/22 15:57:00 EST, Aerosol, Route to Pharmacy Electronically, [id number], [facility] #[id number], 152.4, cm, 01/22/22 15:53:... Start Date: 01/22/22 [...] 3 Refills, Maintenance, 04/09/21 14:24:00 EST, Tablet, [facility] #[id number], Partial fill upon patient request if the [...] simplex infection Confirmed Active Sinusitis Confirmed Active 73719; repeat 2030 28258 nl, repeat 2019 Social History Social History Type Response Smoking Status Former smoker; Other : Quit smoking age 35; entered on: 05/03/16 Sex Patient Care team information Care Team Personnel Name: Abiola LAM, Brock Junior Position: [facility] Primary Care Physician Member Role: PCP Address: Address: [address] [place] [address]- Care Team Related Persons Name: SAMUEL ROY Address: [address] [place] [address] Name: NAINA MCFARLANE Address: [address] [place] [address]
--- OUTSIDE RECORDS SUMMARY | 2023-06-02 10:57 | XMS_ITS | Continuity of Care Document ---
Author Name Unknown Organization [facility] Address [address] [place] [address]- Care Team Providers Care Oyster Picker Name Role Phone Brock Culver MD Primary Care Physician [facility] 11[facility]21 - 11/09/21 [facility] Adult [address] [place] [address]- Attending Physician: Not on Staff, Attending MD Allergies, Adverse Reactions, Alerts No Known [...] (oldterm) 03/12/07 Give n [facility] [place] 2Result Comment: [03/05/2013] FLUVIRIN LOT # [id number] EXP 05/31/13 3Result Comment: DID NOT GET 4Result Comment: PT REFUSED 5Admin Note: [employer] [facility] 6Location History: [facility] Medications amoxicillin 875 mg oral tablet 1 tablet = 875 mg, By Mouth, 2 times a day, # 14 tablet, 0 Refills, Maintenance, 11/02/21 11:39:00 EDT, Tablet, [facility] #[id number], Partial fill upon patient request if the prescription is for a schedule II opioid drug., 152.4, cm, 11/02/21 1... Start Date: 11/02/21 Stop Date: 11/09/21 Status: Ordered escitalopram 10 mg oral tablet 1 tablet = 10 mg, By Mouth, Daily, Please call to schedule a follow up office visit at [phone], # 30 tablet, 1 Refills, Maintenance, 11/09/21 11:46:00 EDT, [facility][id number], 152.4, cm, 11/02/21 11:15:00 EDT, Height Start Date: 11/09/21 Status: Ordered Flonase 50 mcg/inh nasal spray 2 sprays, Nares, Both, Daily in AM, # 16 Gm, 11 Refills, Maintenance, 11/30/20 14:56:00 EDT, [place] #39559, Partial fill upon patient request if the prescription is for a schedule II opioid drug., 2 sprays Nares, Both Daily in AM,... Start Date: 11/30/20 Status: Ordered predniSONE 20 mg oral tablet 1 tablet = 20 mg, By Mouth, Daily, # 7 tablet, 2 Refills, Maintenance, 09/14/21 10:40:00 EDT, Table[place], [facility] #[id number], Partial fill upon patient request if the [...] 3 Refills, Maintenance, 04/09/21 14:24:00 EST, Tablet, [facility] #[id number], Partial fill upon patient request if the prescription is for a schedule II opioid drug., 152.4, cm, 04/09/21 13:56:00 E... Start Date: 04/09/21 Status: Ordered Problem List Condition Effective Dates Status Health Status Inform ant After menopause(Confirmed) Active Allergic rhinitis(Confirmed) Active Chronic cough(Confirmed) Active Colonoscopy(Confirmed) 1, 2 Active Depression(Confirmed) Active Diverticulitis(Confirmed) Active Female climacteric state(Confirmed) Active Acid reflux(Confirmed) Active H/O heartburn(Confirmed) Active PND (post-nasal drip)(Confirmed) Active Recurrent oral herpes simple x infection(Confirmed) Active Sinusitis(Confirmed) Active 95600; repeat 2030 72103 nl, repeat 2020 Vital Signs Most recent to oldest [Reference Range]: 1 Height 152.40 cm (11/02/21 11:15 AM) Weight 68.3 kg (11/02/21 11:15 AM) Oxygen Saturation [94-100 %] 99 % (11/02/21 11:15 AM) Pulse Rate [55-90 bpm] 80 bpm (11/02/21 11:15 AM) Body Mass Index [18.5-24.99] 29.41 *H* (11/02/21 11:15 AM) Blood Pressure [90-138/55-84 mm Hg] 110/ 72mm Hg (11/02/21 11:15 AM) Respiratory Rate [16-30 br/min] 20 br/mi n (11/02/21 11:15 AM) Mode of Delivery (Oxygen) Room air (11/02/21 11:15 AM) Weight Obtained Via Standing scale (11/02/21 11:15 AM) Social History Social History Type Response Smoking Status Former smoker; Other : Quit smoking age 35; entered on: 05/03/16 Sex Care Team Personnel Name: Brock Culver MD Address: [address] [place] [id number]
--- OUTSIDE RECORDS SUMMARY | 2023-06-02 10:57 | XMS_ITS | Continuity of Care Document ---
Author Name Unknown Organization [facility] Address [address] [place] [address]- Care Team Providers Care Armature Tester Name Role Phone Brock Culver MD Primary Care Physician [facility]21 - 05/09/21 [facility] Adult [address] [place] [address]- Allergies, Adverse Reactions, Alerts No Known Allergies [...] HOSPITAL 2Result Comment: [03/05/2013] FLUVIRIN LOT # [id number] EXP 05/31/13 3Result Comment: DID NOT GET 4Result Comment: PT REFUSED 5Admin Note: [facility] 6Location History: [facility] Medications escitalopram 10 mg oral tablet 1 tablet = 10 mg, By Mouth, Daily, # 30 tablet, 5 Refills, Maintenance, 10/30/20 8:13:00 EDT, Tablet, [facility] #[id number], 152.4, cm, 10/13/20 7:01:00 EDT, Height Start Date: 10/30/20 Status: Ordered Flonase 50 mcg/inh nasal spray 2 sprays, Nares, Both, Daily in AM, # 16 Gm, 11 Refills, Maintenance, 11/30/20 14:56:00 EDT, [place],[facility] #[id number], Partial fill upon patient request if the prescription is for a schedule II opioid drug., 2 sprays Nares, Both Daily in AM,... Start Date: 11/30/20 Status: Ordered ZyrTEC 10 mg oral tablet 1 tablet = 10 mg, By Mouth, Daily, # 90 tablet, 3 Refills, Maintenance, 04/09/21 14:24:00 EST, Tablet, [facility] #[id number], Partial fill upon patient request if the [...] herpes simple x infection(Confirmed) Active Sinusitis(Confirmed) Active 95623 nl, repeat 2019 Social History Social History Type Response Smoking Status Former smoker; Other : Quit smoking age 35; entered on: 05/03/16 Sex
--- OUTSIDE RECORDS SUMMARY | 2023-06-02 10:57 | XMS_ITS | Continuity of Care Document ---
Author Name Unknown Organization [facility] Address [address] [place] [address]- Care Team Providers Care Ukrainian Folk Arts Instructor Name Role Phone Abiola LAM, Brock Junior Primary Care Physician [facility] 12/18/20 - 01/17/21 [facility] Adult [address] [place] [address]- Allergies, Adverse Reactions, Alerts Substance Reaction Severity [...] [place] 3Result Comment: [03/05/2013] FLUVIRIN LOT # [id number] EXP 05/31/13 4Result Comment: PT REFUSED 5Admin Note: [facility] 6Location History: [facility] Medications Azithromycin 5 Day Dose Pack 250 mg oral tablet 1 pack/packet, By Mouth, Once, as directed on package labeling, # 6 tablet, 0 Refills, Soft Stop, 12/18/20 16:35:00 EDT, Tablet, [facility] #[id number], Partial fill upon patient request if the prescription is for a schedule II opioid drug., 152.... Start Date: 12/18/20 Status: Ordered escitalopram 10 mg oral tablet 1 tablet = 10 mg, By Mouth, Daily, # 30 tablet, 5 Refills, Maintenance, 10/30/20 8:13:00 EDT, Tablet, [facility] #[id number], 152.4, cm, 10/13/20 7:01:00 EDT, Height Start Date: 10/30/20 Status: Ordered Flonase 50 mcg/inh nasal spray 2 sprays, Nares, Both, Daily in AM, # 16 Gm, 11 Refills, Maintenance, 11/30/20 14:56:00 EDT, [place],[facility] #[id number], Partial fill upon patient request if the prescription is for a schedule II opioid drug., 2 sprays Nares, Both Daily in AM,... Start Date: 11/30/20 Status: Ordered predniSONE 20 mg oral tablet See Instructions, 2 tablets daily for 5 days and then 1 tablet daily for 5 days, # 15 tablet, 0 Refills, Maintenance, 11/30/20 14:58:00 EDT, [facility] #[id number], Partial fill upon patient request if the prescription is for a schedule II opioid... Start Date: 11/30/20 Status: Ordered Problem List Condition Effective Dates Status Health Status Inform ant Acute bronchitis(Confirmed) Active After menopause(Confirmed) Active Allergic rhinitis(Confirmed) Active Chronic cough(Confirmed) Active Colonoscopy(Confirmed) 1 Active Depression(Confirmed) Active Diverticulitis(Confirmed) Active Female climacteric state(Confirmed) Active Acid reflux(Confirmed) Active H/O heartburn(Confirmed) Active Recurrent oral herpes simple x infection(Confirmed) Active Sinusitis(Confirmed) Active 27844 nl, repeat 2019 Social History Social History Type Response Smoking Status Former smoker; Other : Quit smoking age 35; entered on: 05/03/16 Sex
--- OUTSIDE RECORDS SUMMARY | 2023-06-02 10:58 | XMS_ITS | Continuity of Care Document ---
Author Name Unknown Organization [facility] [place] Address [address] [place] [address]- Care Team Providers Care Apprentice Lineman Third Step Name Role Phone Brock Culver MD Primary Care Physician [facility] 01[facility]21 - 02/21/21 [facility] [place] Adult [address] [place] [address]- Allergies, Adverse Reactions, Alerts Substance Reaction Severity [...] 03/12/07 Give n 1Location History: [facility] 2Result Comment: [03/05/2013] FLUVIRIN LOT # [id number] EXP 05/31/13 3Result Comment: DID NOT GET 4Result Comment: PT REFUSED 5Admin Note: [employer] [facility] 6Location History: [facility] Medications CeleBREX 200 mg oral capsule 1 capsule = 200 mg, By Mouth, Daily, # 90 capsule, 0 Refills, Maintenance, 01/22/21 14:58:00 EST, Capsule, [facility] #[id number], Partial fill upon patient request if the prescription is for a schedule II opioid drug., 152.4, cm, 11/30/20 14:28:... Start Date: 01/22/21 Stop Date: 04/22/21 Status: Ordered Diflucan 150 mg oral tablet 1 tablet = 150 mg, By Mouth, Once, # 1 tablet, 0 Refills, Soft Stop, 01/26/21 13:52:00 EST, [facility] #[id number], 152.4, cm, 11/30/20 14:28:00 EDT, Height Start Date: 01/26/21 Status: Ordered doxycycline hyclate 100 mg oral capsule 1 capsule = 100 mg, By Mouth, 2 times a day, # 20 capsule, 0 Refills, Maintenance, 02/08/21 10:39:00 EST, Caps[place], [facility] #[id number], Partial fill upon patient request if the prescription is for a schedule II opioid drug., 152.4, cm, ... Start Date: 02/08/21 Status: Ordered escitalopram 10 mg oral tablet 1 tablet = 10 mg, By Mouth, Daily, # 30 tablet, 5 Refills, Maintenance, 10/30/20 8:13:00 EDT, Tablet, [facility] #[id number], 152.4, cm, 10/13/20 7:01:00 EDT, Height Start Date: 10/30/20 Status: Ordered Flonase 50 mcg/inh nasal spray 2 sprays, Nares, Both, Daily in AM, # 16 Gm, 11 Refills, Maintenance, 11/30/20 14:56:00 EDT, [place],[facility] #[id number], Partial fill upon patient request if the prescription is for a schedule II opioid drug., 2 sprays Nares, Both Daily in AM,... Start Date: 11/30/20 Status: Ordered predniSONE 20 mg oral tablet 1 tablet = 20 mg, By Mouth, Daily, # 10 tablet, 0 Refills, Acute 03/02/21 14:37:00 EST, 02/20/21 15:03:00 EST, [facility] #[id number], Partial fill upon patient request if the prescription is for a schedule II opioid drug., 152.4, cm, 02/08/21 10... Start Date: 02/20/21 Stop Date: 03/02/21 Status: Ordered Problem List Condition Effective Dates Status Health Status Inform ant Acute bronchitis(Confirmed) Active After menopause(Confirmed) Active Allergic rhinitis(Confirmed) Active Chronic cough(Confirmed) Active Colonoscopy(Confirmed) 1 Active Depression(Confirmed) Active Diverticulitis(Confirmed) Active Female climacteric state(Confirmed) Active Acid reflux(Confirmed) Active H/O heartburn(Confirmed) Active Recurrent oral herpes simple x infection(Confirmed) Active Sinusitis(Confirmed) Active 40764 nl, repeat 2020 Social History Social History Type Response Smoking Status Former smoker; Other : Quit smoking age 35; entered on: 05/03/16 Sex
--- OUTSIDE RECORDS SUMMARY | 2023-06-02 10:58 | XMS_ITS | Continuity of Care Document ---
Author Name Unknown Organization [facility] Address [address] [place] [address]- Care Team Providers Care Grain Merchandiser Name Role Phone Brock Culver MD Primary Care Physician [facility] 05/31/21 - 06/30/21 [facility] Adult [address] [place] [address]- Allergies, Adverse Reactions, Alerts No Known Allergies [...] 03/12/07 Give n 1Location History: [facility] 2Result Comment: [03/05/2013] FLUVIRIN LOT # [id number] EXP 05/31/13 3Result Comment: DID NOT GET 4Result Comment: PT REFUSED 5Admin Note: [facility] 6Location History: [facility] Medications escitalopram 10 mg oral tablet 1 tablet = 10 mg, By Mouth, Daily, # 30 tablet, 5 Refills, Maintenance, 10/30/20 8:13:00 EDT, Tablet, [facility] #[id number], 152.4, cm, 10/13/20 7:01:00 EDT, Height Start Date: 10/30/20 Status: Ordered Flonase 50 mcg/inh nasal spray 2 sprays, Nares, Both, Daily in AM, # 16 Gm, 11 Refills, Maintenance, 11/30/20 14:56:00 EDT, [place],[facility] #[id number], Partial fill upon patient request if the prescription is for a schedule II opioid drug., 2 sprays Nares, Both Daily in AM,... Start Date: 11/30/20 Status: Ordered ZyrTEC 10 mg oral tablet 1 tablet = 10 mg, By Mouth, Daily, # 90 tablet, 3 Refills, Maintenance, 04/09/21 14:24:00 EST, Tablet, [facility] #[id number], Partial fill upon patient request if the [...] herpes simple x infection(Confirmed) Active Sinusitis(Confirmed) Active 49608; repeat 2030 , repeat 2019 Social History Social History Type Response Smoking Status Former smoker; Other : Quit smoking age 35; entered on: 05/03/16 Sex
--- OUTSIDE RECORDS SUMMARY | 2023-06-02 10:58 | XMS_ITS | Continuity of Care Document ---
Author Name Unknown Organization [facility] Address [address] [place] [address]- Care Team Providers Care Specialty Manufacturing Supervisor Name Role Phone Brock Culver MD Primary Care Physician [facility]): 06[facility]07/19 - 06/14/19 [facility] Adult [address] [place] [address]- [facility] Attending Physician: Brock Culver MD Allergies, Adverse [...] Give n 1Location History: [facility] 2Result Comment: [03/05/2013] FLUVIRIN LOT # [id number] EXP 05/31/13 3Result Comment: PT REFUSED 4Admin Note: [facility] 5Location History: [facility] 6Result Comment: DID NOT GET Medications Activella oral tablet 1 tablet, By Mouth, Daily, # 28 tablet, 3 Refills Start Date: 11/03/08 Status: Ordered escitalopram 10 mg oral tablet 1 tablet = 10 mg, By Mouth, Daily, # 90 tablet, 4 Refills, Maintenance, 05/06/19 13:44:00 EST, Tablet, [facility] #[id number], 152.4, cm, 03/18/19 15:27:00 EST, Height Start Date: 05/06/19 Status: Ordered Nystop 157231 u/gm powder See Instructions, # 15 Gm, APPLY THIN LAYER TO THE AFFECTED AREA TWICE DAILY, [facility] #[id number] Start Date: 10/19/18 Status: Ordered predniSONE 20 mg oral tablet See Instructions, 2 tablets daily for 5 days then 1 tablet daily for 5 days, # 15 tablet, 0 Refills, Maintenance, 03/18/19 15:59:00 EST, Tablet, [facility] #[id number], 152.4, cm, 03/18/19 15:27:00 EST, Height Start Date: 03/18/19 Status: Ordered Singulair 10 mg oral tablet 10 mg, 1, tablet, By Mouth, Daily, # 90 tablet, Refills 3, Tot. Refills 3, Maintenance, 10/02/18 8:55:03 EDT, Route to Pharmacy Electronically, [id number], [facility] #[id number] Start Date: 10/02/18 Stop Date: 09/27/19 Status: Ordered Zantac 150 oral tablet 1 tablet = 150 mg, By Mouth, 2 times a day, # 60 tablet, 5 Refills, Maintenance, 12/17/18 15:39:02 EDT, Tablet Start Date: 12/17/18 Status: Ordered ZyrTEC 10 mg oral tablet [...] herpes simple x infection(Confirmed) Active Sinusitis(Confirmed) Active 52371 nl, repeat 2019 Social History Social History Type Response Smoking Status Former smoker; Other : Quit smoking age 35; entered on: 05/03/16 Sex
--- OUTSIDE RECORDS SUMMARY | 2023-06-02 10:58 | XMS_ITS | Continuity of Care Document ---
Author Name Unknown Organization [facility] Address [address] [place] [address]- Care Team Providers Care Billboard Erector Name Role Phone Abiola LAM, Brock Junior Primary Care Physician [facility]): 11[facility]30/20 - 12/07/20 [facility] Adult [address] [place] [address]- Encounter Diagnosis Chronic cough(Discharge Diagnosis) - 11/30/20 Attending Physician: Manoj TAYLOR, Zee Remy Allergies, Adverse Reactions, Alerts Substance Reaction Severity [...] DID NOT GET 2Location History: [facility] 3Result Comment: [03/05/2013] FLUVIRIN LOT # [id number] EXP 05/31/13 4Result Comment: PT REFUSED 5Admin Note: [facility] 6Location History: [facility] Medications escitalopram 10 mg oral tablet 1 tablet = 10 mg, By Mouth, Daily, # 30 tablet, 5 Refills, Maintenance, 10/30/20 8:13:00 EDT, Tablet, [facility] #[id number], 152.4, cm, 10/13/20 7:01:00 EDT, Height Start Date: 10/30/20 Status: Ordered Flonase 50 mcg/inh nasal spray 2 sprays, Nares, Both, Daily in AM, # 16 Gm, 11 Refills, Maintenance, 11/30/20 14:56:00 EDT, [place],[facility] #[id number], Partial fill upon patient request if the prescription is for a schedule II opioid drug., 2 sprays Nares, Both Daily in AM,... Start Date: 11/30/20 Status: Ordered predniSONE 20 mg oral tablet See Instructions, 2 tablets daily for 5 days and then 1 tablet daily for 5 days, # 15 tablet, 0 Refills, Maintenance, 11/30/20 14:58:00 EDT, [facility] #[id number], Partial fill upon patient request if the [...] herpes simple x infection(Confirmed) Active Sinusitis(Confirmed) Active 40006 nl, repeat 2019 Diagnosis Diagnosis Type Effective Dates Health Status Cl inical Service Informant Chronic cough Discharge Diagnosis 11/30/20 Vital Signs Most recent to oldest [Reference Range]: 1 Height 152.40 cm (11/30/20 2:28 PM) Social History Social History Type Response Smoking Status Former smoker; Other : Quit smoking age 35; entered on: 05/03/16 Sex
--- OUTSIDE RECORDS SUMMARY | 2023-06-02 10:58 | XMS_ITS | Continuity of Care Document ---
Author Name Unknown Organization [facility] Address [address] [place] [address]- Care Team Providers Care Chrome Cleaner Name Role Phone Brock Culver MD Primary Care Physician [facility](s): 01/15/21 - 02/14/21 [facility] Adult [address] [place] [address]- Allergies, Adverse Reactions, Alerts Substance Reaction Severity [...] tetanus/diphtheria/pertussis, acel(Tdap) 04/18/17 Given pneumococcal 13-valent vaccine 3/3/17 Given FluLaval (oldterm) 4, 5 01/16/12 Given Zoster Vaccine Live 6 03/04/11 Recorded Tet/Diphth/Acel, Pertussis (oldterm) 03/12/07 Give n 1Location History: [facility] 2Result Comment: [03/05/2013] FLUVIRIN LOT # [id number] EXP 05/31/13 3Result Comment: DID NOT GET 4Result Comment: PT REFUSED 5Admin Note: [facility] 6Location History: [facility] Medications CeleBREX 200 mg oral capsule 1 capsule = 200 mg, By Mouth, Daily, # 90 capsule, 0 Refills, Maintenance, 01/22/21 14:58:00 EST, Capsule, [facility] #[id number], Partial fill upon patient request if the prescription is for a schedule II opioid drug., 152.4, cm, 11/30/20 14:28:... Start Date: 01/22/21 Stop Date: 04/22/21 Status: Ordered Diflucan 150 mg oral tablet 1 tablet = 150 mg, By Mouth, Once, # 1 tablet, 0 Refills, Soft Stop, 01/26/21 13:52:00 EST, [facility] #[id number], 152.4, cm, 11/30/20 14:28:00 EDT, Height Start Date: 01/26/21 Status: Ordered doxycycline hyclate 100 mg oral capsule 1 capsule = 100 mg, By Mouth, 2 times a day, # 20 capsule, 0 Refills, Maintenance, 02/08/21 10:39:00 EST, [place]aps[place], [facility] #[id number], Partial fill upon patient request if the prescription is for a schedule II opioid drug., 152.4, cm, ... Start Date: 02/08/21 Status: Ordered escitalopram 10 mg oral tablet 1 tablet = 10 mg, By Mouth, Daily, # 30 tablet, 5 Refills, Maintenance, 10/30/20 8:13:00 EDT, Tablet, [facility] #[id number], 152.4, cm, 10/13/20 7:01:00 EDT, Height Start Date: 10/30/20 Status: Ordered Flonase 50 mcg/inh nasal spray 2 sprays, Nares, Both, Daily in AM, # 16 Gm, 11 Refills, Maintenance, 11/30/20 14:56:00 EDT, [place],[facility] #[id number], Partial fill upon patient request if the prescription is for a schedule II opioid drug., 2 sprays Nares, Both Daily in AM,... Start Date: 11/30/20 Status: Ordered Problem List Condition Effective Dates Status Health Status Inform ant Acute bronchitis(Confirmed) Active After menopause(Confirmed) Active Allergic rhinitis(Confirmed) Active Chronic cough(Confirmed) Active Colonoscopy(Confirmed) 1 Active Depression(Confirmed) Active Diverticulitis(Confirmed) Active Female climacteric state(Confirmed) Active Acid reflux(Confirmed) Active H/O heartburn(Confirmed) Active Recurrent oral herpes simple x infection(Confirmed) Active Sinusitis(Confirmed) Active 61616 nl, repeat 2019 Social History Social History Type Response Smoking Status Former smoker; Other : Quit smoking age 35; entered on: 05/03/16 Sex
--- OUTSIDE RECORDS SUMMARY | 2023-06-02 10:58 | XMS_ITS | Continuity of Care Document ---
Author Name Unknown Organization [facility] Address [address] [place] [address]- Care Team Providers Care Circulation Librarian Name Role Phone Abiola LAM, Brock Junior Primary Care Physician [phone] [facility] 10[facility]28[facility]22 - 11/27/22 [facility] Adult [address] [place] [address]- Allergies, Adverse Reactions, Alerts No Known Allergies [...] 03/12/07 Give n 1Location History: [facility] 2Result Comment: [03/05/2013] FLUVIRIN LOT # [id number] EXP 05/31/13 3Location History: [facility] Medications doxycycline hyclate 100 mg oral capsule 1 capsule = 100 mg, By Mouth, 2 times a day, # 20 capsule, 0 Refills, Maintenance, 10/30/22 15:03:00 EDT, Capsule, [facility] #[id number], Partial fill upon patient request if the prescription is for a schedule II opioid drug., 152.4, cm, ... Start Date: 10/30/22 Status: Ordered escitalopram 10 mg oral tablet 1 tablet, By Mouth, Daily, # 90 tablet, 3 Refills, Maintenance, 09/05/22 14:05:00 EDT, [facility] #[id number], 152.4, cm, 09/05/22 12:54:00 EDT, Height Start Date: 09/05/22 Status: Ordered Flonase 50 mcg/inh nasal spray 2 sprays, Nares, Both, Daily in AM, # 16 Gm, 11 Refills, Maintenance, 11/30/20 14:56:00 EDT, [place],[facility] #[id number], Partial fill upon patient request if the prescription is for a schedule II opioid drug., 2 sprays Nares, Both Daily in AM,... Start Date: 11/30/20 Status: Ordered predniSONE 20 mg oral tablet See Instructions, 2 tablets daily for 5 days then 1 tablet daily for 5 days, # 15 tablet, 0 Refills, Maintenance, 10/30/22 15:03:00 EDT, Tablet, [facility] #[id number], Partial fill upon patientrequest if the prescription is for a schedule II op... Start Date: 10/30/22 Status: Ordered ProAir HFA 90 mcg/inh inhalation aerosol with adapter 2, puffs, Inhalation, Every 6 hours, PRN, # 8.5 Gm, Refills 0, Tot. Refills 0, Maintenance, 09/05/22 14:04:00 EDT, Aerosol, Route to Pharmacy Electronically, [id number], [facility] #[id number], 152.4, cm, 09/05/22 12:54:... Start Date: 09/05/22 [...] 3 Refills, Maintenance, 04/09/21 14:24:00 EST, Tablet, [facility] #[id number], Partial fill upon patient request if the [...] simplex infection Confirmed Active Sinusitis Confirmed Active 93972; repeat 2030 34471 nl, repeat 2020 Social History Social History Type Response Smoking Status Former smoker; Other : Quit smoking age 35; entered on: 05/03/16 Sex Patient Care team information Care Team Personnel Name: Abiola LAM, Brock Junior Position: [facility] Physician - Primary Care Member Role: PCP Address: Address: [address] [place] [address] [place] Care Team Related Persons Name: SAMUEL ROY Address: [address] [place] [address] Name: NAINA MCFARLANE Address: home [address] [place] [address]
--- OUTSIDE RECORDS SUMMARY | 2023-06-02 10:58 | XMS_ITS | Continuity of Care Document ---
Author Name Unknown Organization [facility] Address [address] [place] [address]- Care Team Providers Care Filler Leaf Cutter Long Name Role Phone Brock Culver MD Primary Care Physician [phone] [facility]counter [facility] Date[facility]s): 04/28/23 - 05/28/23 [facility] Adult [address] [place] [address]- Allergies, Adverse Reactions, Alerts No Known Allergies Immunizations Given and Recorded Vaccine Date Status Refusal Reason SARS-CoV-2(COVID-19)mRNA-LNP vac([id number]) 02/04/23 Recorded influenza virus vaccine, inactivated 01/13/23 [...] virus vaccine, inactivated 1, 2 02/27/13 Recorded [id number] bivalent booster vax 01/02/22 Recorded SARS-CoV-2 (COVID-19) [...] HOSPITAL 2Result Comment: [03/05/2013] [facility] LOT # [id number] EXP 05/31/13 3Location History: [facility] Medications amoxicillin 875 mg oral tablet 1 tablet = 875 mg, By Mouth, 2 times a day, for 7 days, # 14 tablet, 0 Refills, Acute 06/03/23 13:13:00 EDT, 05/27/23 13:13:00 EDT, Tablet, [facility] #[id number], Partial fill upon patient request if the prescription is for a schedule II opioid... Start Date: 05/27/23 Stop Date: 06/03/23 Status: Ordered azithromycin 250 mg oral tablet See Instructions, Take 2 tablets on day 1 and 1 tablet daily for next 4 days, # 6 tablet, 0 Refills, Maintenance, 04/16/23 10:42:00 EST, Tablet, [facility] #[id number], Partial fill upon patientrequest if the prescription is for a schedule II op... Start Date: 04/16/23 Status: Ordered benzonatate 100 mg oral capsule 1 capsule = 100 mg, By Mouth, 3 times a day, PRN as needed for cough, for 7 days, # 21 capsule, 0 Refills, Acute 06/03/23 13:14:00 EDT, 05/27/23 13:14:00 EDT, Capsule, [facility] #[id number], Partial fill upon patient request if the prescription... Start Date: 05/27/23 Stop Date: 06/03/23 Status: Ordered escitalopram 10 mg oral tablet 1 tablet, By Mouth, Daily, # 90 tablet, 3 Refills, Maintenance, 09/05/22 14:05:00 EDT, [facility] #[id number], 152.4, cm, 09/05/22 12:54:00 EDT, Height Start Date: 09/05/22 Status: Ordered fluticasone 50 mcg/inh nasal spray 2 sprays = 100 mcg, Nares, Both, Daily in AM, # 16 Gm, 11 Refills, Maintenance, 02/10/23 14:27:00 EST, [place], [facility] #[id number], Partial fill upon patient request if the prescription is fora schedule II opioid drug., 2 sprays Nares, Both Da... Start Date: 02/10/23 Status: Ordered predniSONE 10 mg oral tablet 1 tablet = 10 mg, By Mouth, 2 times a day, # 10 tablet, 0 Refills, Maintenance, 04/16/23 10:22:00 EST, Tablet, [facility] #[id number], Partial fill upon patient request if the prescription is for a schedule II opioid drug., 152.4, cm, 04/16/23 10... Start Date: 04/16/23 Status: Ordered predniSONE 20 mg oral tablet 2 tablet = 40 mg, By Mouth, Daily, PRN severe cough, # 20 tablet, 0 Refills, Maintenance, 02/10/23 14:26:00 EST, Tablet, [facility] #[id number], Partial fill upon patient request if the [...] patch, 0 Refills, Maintenance, 02/10/23 14:23:00 EST, [facility] #[id number], Partial fill upon patient request if the prescription is for a schedule II opioid drug., 1 patch Topically Every 72 hours, 152.4... Start Date: 02/10/23 Status: Ordered ZyrTEC 10 mg oral tablet 1 tablet = 10 mg, By Mouth, Daily, # 90 tablet, 3 Refills, Maintenance, 04/09/21 14:24:00 EST, Tablet, [facility] #[id number], Partial fill upon patient request if the prescription is for a schedule II opioid drug., 152.4, cm, 04/09/21 13:56:00 E... Start Date: 04/09/21 Status: Ordered Problem List Condition Confirmation Course Effective Dates Status H ealth Status Informant Acute sinusitis Confirmed Active Allergic rhinitis Confirmed Active Chronic cough Confirmed Active Colonoscopy 1, 2 Confirmed Active Cough Confirmed Active COVID-19 Confirmed Active Depression Confirmed Active Diverticulitis Confirmed Active Female climacteric state Confirmed Active Acid reflux Confirmed Active H/O heartburn Confirmed Active Recurrent oral herpes simplex infection Confirmed Active 31730; repeat 2030 86493 nl, repeat 2019 Social History Social History Type Response Smoking Status Former smoker; Other : Quit smoking age 35; entered on: 05/03/16 Sex Patient Care team information Care Team Personnel Name: Abiola LAM, Brock Junior Position: [facility] Physician - Primary Care Member Role: PCP Address: Address: [address] [place] [address]- Care Team Related Persons Name: SAMUEL ROY Address: home [address] [place] [address] Name: NAINA MCFARLANE Address: home [address] [place] [address]
--- OUTSIDE RECORDS SUMMARY | 2023-06-02 10:58 | XMS_ITS | Continuity of Care Document ---
Author Name Unknown Organization [facility] Address [address] [place] [address]- Care Team Providers Care Roofing Layer Name Role Phone Abiola LAM, Brock Junior Primary Care Physician [facility]): 03/10/20 - 04/09/20 [facility] Adult [address] [place] [address]- Allergies, Adverse Reactions, Alerts Substance Reaction Severity [...] DID NOT GET 2Location History: [facility] 3Result Comment: [03/05/2013] FLUVIRIN LOT # [id number] EXP 05/31/13 4Result Comment: PT REFUSED 5Admin Note: [facility] 6Location History: [facility] Medications escitalopram 10 mg oral tablet 1 tablet = 10 mg, By Mouth, Daily, # 90 tablet, 4 Refills, Maintenance, 05/06/19 13:44:00 EST, Tablet, [facility] #[id number], 152.4, cm, 03/18/19 15:27:00 EST, Height Start Date: 05/06/19 Status: Ordered Singulair 10 mg oral tablet 10 mg, 1, tablet, By Mouth, Daily, # 90 tablet, Refills 1, Tot. Refills 1, Maintenance, 02/07/20 15:07:00 EST, Route to Pharmacy Electronically, [facility] #[id number], 152.4, cm, 01/10/20 11:58:00 EST, Height Start [...] herpes simple x infection(Confirmed) Active Sinusitis(Confirmed) Active 85183 nl, repeat 2019 Social History Social History Type Response Smoking Status Former smoker; Other : Quit smoking age 35; entered on: 05/03/16 Sex
--- OUTSIDE RECORDS SUMMARY | 2023-06-02 10:58 | XMS_ITS | Continuity of Care Document ---
Author Name Unknown Organization [facility] Address [address] [place] [address]- Care Team Providers Care Customer Consultant Name Role Phone Brock Culver MD Primary Care Physician [facility] Date(s): 09/06/22 - 10/06/22 [facility] Adult [address] [place] [address]- Allergies, Adverse Reactions, Alerts No Known Allergies [...] Pertussis (oldterm) 03/12/07 Give n 1Location History: [facility] 2Result Comment: [03/05/2013] FLUVIRIN LOT # [id number] EXP 05/31/13 3Result Comment: DID NOT GET 4Result Comment: PT REFUSED 5Admin Note: [email or web address] 6Location History: [facility] Medications amoxicillin 875 mg oral tablet 1 tablet = 875 mg, By Mouth, 2 times a day, # 14 tablet, 0 Refills, Maintenance, 11/02/21 11:39:00 EDT, Tablet, [facility] #[id number], Partial fill upon patient request if the prescription is for a schedule II opioid drug., 152.4, cm, 11/02/21 1... Start Date: 11/02/21 Stop Date: 11/09/21 Status: Ordered escitalopram 10 mg oral tablet 1 tablet, By Mouth, Daily, # 90 tablet, 3 Refills, Maintenance, 09/05/22 14:05:00 EDT, [facility] #[id number], 152.4, cm, 09/05/22 12:54:00 EDT, Height Start Date: 09/05/22 Status: Ordered Flonase 50 mcg/inh nasal spray 2 sprays, Nares, Both, Daily in AM, # 16 Gm, 11 Refills, Maintenance, 11/30/20 14:56:00 EDT, [place],[facility] #[id number], Partial fill upon patient request if the [...] Refills, Maintenance, 01/22/22 15:55:00 EST, ER Tablet, [facility] #0... Start Date: 01/22/22 Status: Ordered predniSONE 10 mg oral tablet 1 tablet = 10 mg, By Mouth, 2 times a day, # 10 tablet, 0 Refills, Maintenance, 06/07/22 16:01:00 EDT, Tablet, [facility] #[id number], Partial fill upon patient request if the prescription is for a schedule II opioid drug., 152.4, cm, 01/22/22 15... Start Date: 06/07/22 Stop Date: 06/12/22 Status: Ordered predniSONE 20 mg oral tablet 1 tablet = 20 mg, By Mouth, Daily, # 7 tablet, 2 Refills, Maintenance, 09/14/21 10:40:00 EDT, Tablet, [facility] #[id number], Partial fill upon patient request if the prescription is for a schedule II opioid drug., 152.4, cm, 09/14/21 10:23:00 ED... Start Date: 09/14/21 Stop Date: 10/05/21 Status: Ordered ProAir HFA 90 mcg/inh inhalation aerosol with adapter 2, puffs, Inhalation, Every 6 hours, PRN, # 8.5 Gm, Refills 0, Tot. Refills 0, Maintenance, 09/05/22 14:04:00 EDT, Aerosol, Route to Pharmacy Electronically, [id number], [facility] #[id number], 152.4, cm, 09/05/22 12:54:... Start Date: 09/05/22 [...] 3 Refills, Maintenance, 04/09/21 14:24:00 EST, Tablet, [facility] #[id number], Partial fill upon patient request if the [...] simplex infection Confirmed Active Sinusitis Confirmed Active 22152; repeat 2030 25612 nl, repeat 2019 Social History Social History Type Response Smoking Status Former smoker; Other : Quit smoking age 35; entered on: 05/03/16 Sex Patient Care team information Care Team Personnel Name: Abiola LAM, Brock Junior Position: [facility] Physician - Primary Care Member Role: PCP Address: Address: [address] [place] [address]- Care Team Related Persons Name: SAMUEL ROY Address: home [address] [place] [address] Name: NAINA MCFARLANE Address: [address] [place] [address]
--- OUTSIDE RECORDS SUMMARY | 2023-06-02 10:58 | XMS_ITS | Continuity of Care Document ---
Author Name Unknown Organization [facility] Address [address] [place] [address]- Care Team Providers Care Logistics Administrator Name Role Phone Brock Culver MD Primary Care Physician [phone] [place] [facility] [place](s): 09/05/22 - 09/12/22 [facility] Adult [address] [place] [address]- Encounter Diagnosis Chronic cough(Discharge Diagnosis) - 09/05/22 Acute bronchitis(Discharge Diagnosis) - 09/05/22 Attending Physician: Zara Jenkins Allergies, Adverse Reactions, Alerts No Known Allergies [...] 03/12/07 Give n 1Location History[facility] 2Result Comment: [03/05/2013] FLUVIRIN LOT # [id number] EXP 05/31/13 3Result Comment: DID NOT GET 4Result Comment: PT REFUSED 5Admin Note: [facility] 6Location History: [facility] Medications amoxicillin 875 mg oral tablet 1 tablet = 875 mg, By Mouth, 2 times a day, # 14 tablet, 0 Refills, Maintenance, 11/02/21 11:39:00 EDT, Tablet, [facility] #[id number], Partial fill upon patient request if the prescription is for a schedule II opioid drug., 152.4, cm, 11/02/21 1... Start Date: 11/02/21 Stop Date: 11/09/21 Status: Ordered escitalopram 10 mg oral tablet 1 tablet, By Mouth, Daily, # 90 tablet, 3 Refills, Maintenance, 09/05/22 14:05:00 EDT, [facility] #[id number], 152.4, cm, 09/05/22 12:54:00 EDT, Height Start Date: 09/05/22 Status: Ordered Flonase 50 mcg/inh nasal spray 2 sprays, Nares, Both, Daily in AM, # 16 Gm, 11 Refills, Maintenance, 11/30/20 14:56:00 EDT, [place] #[id number], Partial fill upon patient request if the [...] Refills, Maintenance, 01/22/22 15:55:00 EST, ER Tablet, [facility] #0... Start Date: 01/22/22 Status: Ordered Mucus Relief ER 600 mg oral tablet, extended release 1 tablet = 600 mg, By Mouth, Every 12 hours, for 14 days, # 28 tablet, 0 Refills, Acute 09/19/22 13:18:00 EDT, 09/05/22 13:18:00 EDT, [facility] #[id number], Partial fill upon patient request ifthe prescription is for a schedule II opioid drug.,... Start Date: 09/05/22 Stop Date: 09/19/22 Status: Ordered predniSONE 10 mg oral tablet 1 tablet = 10 mg, By Mouth, 2 times a day, # 10 tablet, 0 Refills, Maintenance, 06/07/22 16:01:00 EDT, Tablet, [facility] #[id number], Partial fill upon patient request if the prescription is for a schedule II opioid drug., 152.4, cm, 01/22/22 15... Start Date: 06/07/22 Stop Date: 06/12/22 Status: Ordered predniSONE 20 mg oral tablet 1 tablet = 20 mg, By Mouth, Daily, # 7 tablet, 2 Refills, Maintenance, 09/14/21 10:40:00 EDT, Tablet, [facility] #[id number], Partial fill upon patient request if the prescription is for a schedule II opioid drug., 152.4, cm, 09/14/21 10:23:00 ED... Start Date: 09/14/21 Stop Date: 10/05/21 Status: Ordered ProAir HFA 90 mcg/inh inhalation aerosol with adapter 2, puffs, Inhalation, Every 6 hours, PRN, # 8.5 Gm, Refills 0, Tot. Refills 0, Maintenance, 09/05/22 14:04:00 EDT, Aerosol, Route to Pharmacy Electronically, [id number], [facility] #[id number], 152.4, cm, 09/05/22 12:54:... Start Date: 09/05/22 [...] 3 Refills, Maintenance, 04/09/21 14:24:00 EST, Tablet, [facility] #[id number], Partial fill upon patient request if the [...] simplex infection Confirmed Active Sinusitis Confirmed Active 18738; repeat 203010 nl, repeat 2019 Diagnosis Diagnosis Type Effective Dates Health Status Clinical Service Informant Chronic cough Discharge Diagnosis 09/05/22 Acute bronchitis Discharge Diagnosis 09/05/22 Non-Specified Vital Signs Most recent to oldest [Reference Range]: 1 Height 152.40 cm (09/05/22 12:54 PM) Weight 68.1 kg (09/05/22 12:54 PM) Oxygen Saturation [94-100 %] 97 % (09/05/22 12:54 PM) Pulse Rate [55-90 bpm] 88 bpm (09/05/22 12:54 PM) Body Mass Index [18.5-24.99 kg/m2] 29.32 kg/m2 *H* (09/05/22 12:54 PM) Blood Pressure [90-138/55-84 mm Hg] 136/ 84mm Hg (09/05/22 12:54 PM) Temperature [96.8-100.4 DegF] 97.7 DegF (09/05/22 12:54 PM) Mode of Delivery (Oxygen) Room air (09/05/22 12:54 PM) Blood pressure sites Arm, right (09/05/22 12:54 PM) Temperature Route Temporal (09/05/22 12:54 PM) Weight Obtained Via Standing scale (09/05/22 12:54 PM) Social History Social History Type Response Smoking Status Former smoker; Other : Quit smoking age 35; entered on: 05/03/16 Sex Note * Gena Witt: PERFORM, SIGN, VERIFY Event Display: Patient Education/Instruction Authored Date: [id number] [facility] *BMP Nia Rivasley Ronit Clinical Summary Name ZEE MCFARLANE Age 71 Years 1950 PCP Abiola ALM, Brock Junior PCP Visit Date 09/05/2022 12:49:00 Additional Instructions: Scheduled Appointments?? Future Appointments ?No Future Appointments Scheduled Follow-Up Instructions ?? Diagnosis Chronic cough; Acute bronchitis, unspecified Medications: Please continue your medications until treatment is completed or stopped by your provider. Discuss any questions related to medications with your provider. Medications to Continue Taking That Have Changed [facility] #[id number], [address] [place], [place] [id number], [phone] - Guaifenesin (Mucus Relief ER 600 mg oral tablet, extended release) 1 tab(s) Oral every 12 hours for 14 Days. Refills: 0. Next Dose: These medications were not printed or sent to your pharmacy - Guaifenesin (Mucinex 600 mg oral tablet, extended release) 1 tablet By Mouth Every 12 hours as needed for cough and chest congestion. Swallow extended-release tablets whole; do not chew or crush. Refills: 0. Next Dose: Medications to Continue with No Changes [facility] #[id number], [address], [place] [id number], [phone] Albuterol (ProAir HFA 90 mcg/inh inhalation aerosol with adapter) 2 puff(s) Inhalation every 6 hours as needed Wheezing/Shortness of Breath. Refills: 0. Next Dose: Escitalopram (escitalopram 10 mg oral tablet) 1 tab(s) Oral Daily. Refills: 3. Next Dose: These medications were not printed or sent to your pharmacy Amoxicillin (amoxicillin 875 mg oral tablet) 1 tab(s) Oral twice a day for 7 Days. Refills: 0. Next Dose: Cetirizine (ZyrTEC 10 mg oral tablet) 1 tab(s) Oral Daily. Refills: 3. Next Dose: Fluticasone Nasal (Flonase 50 mcg/inh nasal spray) 2 spray(s) Nares, Both Daily in the morning. Refills: 11. Next Dose: Pantoprazole (Protonix 20 mg oral delayed release tablet) 1 tab(s) Oral Daily. Refills: 6. Next Dose: PredniSONE (predniSONE 10 mg oral tablet) 1 tab(s) Oral twice a day for 5 Days. Refills: 0. Next Dose: PredniSONE (predniSONE 20 mg oral tablet) 1 tab(s) Oral Daily for 7 Days. Refills: 2. Next Dose: Allergy Info:?? NKA Medications Given This Visit Future Orders ?No future orders Vital Signs Height 152.40 cm Weight 68.1 kg BMI 29.32 kg/m2 Blood Pressure 136 mm Hg/84 mm Hg Temperature 97.7 DegF Pulse Rate 88 bpm Respiratory Rate 02 Sat Mode of Delivery 97 %/Room air You can now view a summary of your hospital visit from the comfort of your home through a free online portal called [employer]. [employer] is a website that allows you to securely view your medical information including discharge summary, medications and follow-up visits. ??You can alsosend a secure electronic message to your doctor???s office to request appointments, renew medications or just ask a question. You can enroll at [email or web address] or register during your next office visit. Disclaimer:?? The information provided is of a general nature and is intended to be used in conjunction with the recommendations and advice of your health care practitioner. ??Every effort has been made to ensure that the information provided is accurate and complete at the time it is provided to you however, as your needs change, or, as new ??information becomes available, different or additional instructions may be required. If you have questions, please consult with your primary care provider or pharmacist, as appropriate. ??This information is not intended to serve as substitution for assessment and evaluation by a qualified health care provider. If you do not have a primary care provider, you may find a [facility] provider by calling [facility] at [phone]. For information about the plan of care including goals and instructions for your diagnosis, please see the patient education orders section of this document. Patient Education Materials?? The content of this educational material or handout may have been modified, supplemented, or adapted from its original content and format to support your individualized medical care. Patient Care team information Care Team Personnel Name: Brock Culver MD Position: S Physician - Primary Care Member Role: PCP Address: Address: [address] [place] [address]- Care Team Related Persons Name: SAMUEL ROY Address: home [address] [place] [address] Name: NAINA MCFARLANE Address: home [address] [place] [address]
--- OUTSIDE RECORDS SUMMARY | 2023-06-02 10:58 | XMS_ITS | Continuity of Care Document ---
Author Name Unknown Organization [facility] Address [address] [place] [address]- Care Team Providers Care Commissions Coordinator Name Role Phone Abiola LAM, Brock Junior Primary Care Physician [phone] [facility] Date[facility]s): 03/06/20 - 03/13/20 [facility] Adult [address] [place] [address]- Attending Physician: Eugene Dickey MD Allergies, Adverse Reactions, Alerts Substance Reaction [...] [place] 2Result Comment: [03/05/2013] FLUVIRIN LOT # [id number] EXP 05/31/13 3Result Comment: PT REFUSED 4Admin Note: [facility] 5Location History: [facility] 6Result Comment: DID NOT GET Medications Azithromycin 5 Day Dose Pack 250 mg oral tablet 1 pack/packet, By Mouth, Once, # 6 tablet, 0 Refills, Soft Stop, 03/06/20 9:14:00 EST, Tablet, [facility] #[id number], Partial fill upon patient request if the prescription is for a schedule II opioid drug., 152.4, cm, 03/06/20 8:48:00 EST, Height Start Date: 03/06/20 Status: Ordered escitalopram 10 mg oral tablet 1 tablet = 10 mg, By Mouth, Daily, # 90 tablet, 4 Refills, Maintenance, 05/06/19 13:44:00 EST, Tablet, [facility] #[id number], 152.4, cm, 03/18/19 15:27:00 EST, Height Start Date: 05/06/19 Status: Ordered predniSONE 20 mg oral tablet 2 tablet = 40 mg, By Mouth, Daily, # 10 tablet, 0 Refills, Maintenance, 03/06/20 9:17:00 EST, [facility] #[id number], Partial fill upon patient request if the prescription is for a schedule II opioid drug., 152.4, cm, 03/06/20 8:48:00 EST, Height Start Date: 03/06/20 Status: Ordered Singulair 10 mg oral tablet 10 mg, 1, tablet, By Mouth, Daily, # 90 tablet, Refills 1, Tot. Refills 1, Maintenance, 02/07/20 15:07:00 EST, Route to Pharmacy Electronically, [facility] #[id number], 152.4, cm, 01/10/20 11:58:00 EST, Height Start [...] herpes simple x infection(Confirmed) Active Sinusitis(Confirmed) Active 85834 nl, repeat 2020 Vital Signs Most recent to oldest [Reference Range]: 1 Height 152.40 cm (03/06/20 8:48 AM) Social History Social History Type Response Smoking Status Former smoker; Other : Quit smoking age 35; entered on: 05/03/16 Sex
--- OUTSIDE RECORDS SUMMARY | 2023-06-02 10:58 | XMS_ITS | Continuity of Care Document ---
Author Name Unknown Organization [facility] Address [address] [place] [address]- Care Team Providers Care Clerk Of Superior Court Name Role Phone Brock Culver MD Primary Care Physician [phone] [facility] 07[facility]07/22 [facility] Adult [address] [place] [address]- Attending Physician: Admtr, Ar8 Allergies, Adverse Reactions, [...] 03/12/07 Give n 1Location History: [facility] 2Result Comment: [03/05/2013] FLUVIRIN LOT # [id number] EXP 05/31/13 3Result Comment: DID NOT GET 4Result Comment: PT REFUSED 5Admin Note: [employer] [facility] 6Location History: center pharmacy [facility] Medications amoxicillin 875 mg oral tablet 1 tablet = 875 mg, By Mouth, 2 times a day, # 14 tablet, 0 Refills, Maintenance, 11/02/21 11:39:00 EDT, Tablet, [facility] #[id number], Partial fill upon patient request if the prescription is for a schedule II opioid drug., 152.4, cm, 11/02/21 1... Start Date: 11/02/21 Stop Date: 11/09/21 Status: Ordered escitalopram 10 mg oral tablet 1 tablet, By Mouth, Daily, # 90 tablet, 3 Refills, Maintenance, 01/27/22 7:54:00 EST, [facility] #[id number], 152.4, cm, 01/22/22 15:53:00 EST, Height Start Date: 01/27/22 Status: Ordered Flonase 50 mcg/inh nasal spray 2 sprays, Nares, Both, Daily in AM, # 16 Gm, 11 Refills, Maintenance, 11/30/20 14:56:00 EDT, [place] #[id number], Partial fill upon patient request if the [...] Refills, Maintenance, 01/22/22 15:55:00 EST, ER Tablet, [facility] #0... Start Date: 01/22/22 Status: Ordered predniSONE 10 mg oral tablet 1 tablet = 10 mg, By Mouth, 2 times a day, # 10 tablet, 0 Refills, Maintenance, 06/07/22 16:01:00 EDT, Tablet, [facility] #[id number], Partial fill upon patient request if the prescription is for a schedule II opioid drug., 152.4, cm, 01/22/22 15... Start Date: 06/07/22 Stop Date: 06/12/22 Status: Ordered predniSONE 20 mg oral tablet 1 tablet = 20 mg, By Mouth, Daily, # 7 tablet, 2 Refills, Maintenance, 09/14/21 10:40:00 EDT, Tablet, [facility] #[id number], Partial fill upon patient request if the prescription is for a schedule II opioid drug., 152.4, cm, 09/14/21 10:23:00 ED... Start Date: 09/14/21 Stop Date: 10/05/21 Status: Ordered ProAir HFA 90 mcg/inh inhalation aerosol with adapter 2, puffs, Inhalation, Every 6 hours, PRN, # 8.5 Gm, Refills 0, Tot. Refills 0, Maintenance, 01/22/22 15:57:00 EST, Aerosol, Route to Pharmacy Electronically, [id number], [facility] #[id number], 152.4, cm, 01/22/22 15:53:... Start Date: 01/22/22 [...] 3 Refills, Maintenance, 04/09/21 14:24:00 EST, Tablet, [facility] #[id number], Partial fill upon patient request if the [...] simplex infection Confirmed Active Sinusitis Confirmed Active 31387; repeat 203010 nl, repeat 2019 Procedures Procedure Date Related Diagnosis Body Site Status Colonoscopy 1 11/07/20 Completed 1repeat 2030 Social History Social History Type Response Smoking Status Former smoker; Other : Quit smoking age 35; entered on: 05/03/16 Sex Laboratory * Event Display: Non BH Lab Results Authored Date: * Event Display: Non BH Lab Results Authored Date: Radiology * Event Display: CT Scan Abdomen, Non- BH Authored Date: * Event Display: Radiology Result Scanned Authored Date: * Event Display: Radiology Result Scanned Authored Date: * Rafael Leonela: PERFORM Event Display: Radiology Results Scanned Authored Date: [id number] Patient Care team information Care Team Personnel Name: Brock Culver MD Position: [facility] Primary Care Physician Member Role: PCP Address: Address: [address] [place] [address]- Care Team Related Persons Name: SAMUEL ROY Address: home [address] [place] [address] Name: NAINA MCFARLANE Address: home [address] [place] [address]
--- OUTSIDE RECORDS SUMMARY | 2023-06-02 10:58 | XMS_ITS | Continuity of Care Document ---
Author Name Unknown Organization [facility] Address [address] [place] [address]- Care Team Providers Care Sloop Captain Name Role Phone Abiola LAM, Brock Junior Primary Care Physician [facility]): [facility] - 04/16/21 [facility] Adult [address] [place] [address]- Encounter Diagnosis Acid reflux(Discharge Diagnosis) - 04/09/21 Attending Physician: Manoj TAYLOR, Zee Remy Allergies, Adverse Reactions, Alerts No Known Allergies [...] 03/12/07 Give n 1[facility] 2Result Comment: [03/05/2013] FLUVIRIN LOT # [id number] EXP 05/31/13 3Result Comment: DID NOT GET 4Result Comment: PT REFUSED 5Admin Note: [place] (by isePankur) [facility] 6Location History: [facility] Medications escitalopram 10 mg oral tablet 1 tablet = 10 mg, By Mouth, Daily, # 30 tablet, 5 Refills, Maintenance, 10/30/20 8:13:00 EDT, Tablet, [facility] #[id number], 152.4, cm, 10/13/20 7:01:00 EDT, Height Start Date: 10/30/20 Status: Ordered Flonase 50 mcg/inh nasal spray 2 sprays, Nares, Both, Daily in AM, # 16 Gm, 11 Refills, Maintenance, 11/30/20 14:56:00 EDT, [place],[facility] #35553, Partial fill upon patient request if the prescription is for a schedule II opioid drug., 2 sprays Nares, Both Daily in AM,... Start Date: 11/30/20 Status: Ordered ZyrTEC 10 mg oral tablet 1 tablet = 10 mg, By Mouth, Daily, # 90 tablet, 3 Refills, Maintenance, 04/09/21 14:24:00 EST, Tablet, [facility] #[id number], Partial fill upon patient request if the [...] herpes simple x infection(Confirmed) Active Sinusitis(Confirmed) Active 73315 nl, repeat 2019 Diagnosis Diagnosis Type Effective Dates Health Status Clini levon Service Informant Acid reflux Discharge Diagnosis 04/09/21 Vital Signs Most recent to oldest [Reference Range]: 1 Height 152.40 cm (04/09/21 1:56 PM) Weight 70.0 kg (04/09/21 1:56 PM) Oxygen Saturation [94-100 %] 98 % (04/09/21 1:56 PM) Pulse Rate [55-90 bpm] 87 bpm (04/09/21 1:56 PM) Body Mass Index [18.5-24.99] 30.14 *>HHI* (04/09/21 1:56 PM) Blood Pressure [90-138/55-84 mm Hg] 102/ 70mm Hg (04/09/21 1:56 PM) Respiratory Rate [16-30 br/min] 16 br/mi n (04/09/21 1:56 PM) Mode of Delivery (Oxygen) Room air (04/09/21 1:56 PM) Blood pressure sites Arm, right (04/09/21 1:56 PM) Weight Obtained Via Standing scale (04/09/21 1:56 PM) Social History Social History Type Response Smoking Status Former smoker; Other : Quit smoking age 35; entered on: 05/03/16 Sex
--- OUTSIDE RECORDS SUMMARY | 2023-06-02 10:58 | XMS_ITS | Continuity of Care Document ---
Author Name Unknown Organization [facility] Address [address] [place] [address]- Care Team Providers Care Third Loader Name Role Phone Brock Culver MD Primary Care Physician [facility] 07[facility]19 - 08/06/19 [facility] Adult [address] [place] [address]- [facility] Attending Physician: Brock Culver MD [...] HOSPITAL 2Result Comment: [03/05/2013] FLUVIRIN LOT # [id number] EXP 05/31/13 3Result Comment: PT REFUSED 4Admin Note: [facility] 5Location History: [facility] 6Result Comment: DID NOT GET Medications Activella oral tablet 1 tablet, By Mouth, Daily, # 28 tablet, 3 Refills Start Date: 11/03/08 Status: Ordered Azithromycin 5 Day Dose Pack 250 mg oral tablet 1 pack/packet, By Mouth, Once, # 6 tablet, 0 Refills, Soft Stop, 07/30/19 8:25:00 EDT, Tablet, [facility] #[id number], 152.4, cm, 07/30/19 8:01:00 EDT, Height Start Date: 07/30/19 Status: Ordered Diflucan 150 mg oral tablet 1 tablet = 150 mg, By Mouth, Once, # 1 tablet, 0 Refills, Soft Stop, 06/25/19 14:21:00 EDT, Table[place],[facility] #31602, 152.4, cm, 05/13/19 7:38:00 EDT, Height Start Date: 06/25/19 Status: Ordered escitalopram 10 mg oral tablet 1 tablet = 10 mg, By Mouth, Daily, # 90 tablet, 4 Refills, Maintenance, 05/06/19 13:44:00 EST, Tablet, [facility] #08201, 152.4, cm, 03/18/19 15:27:00 EST, Height Start Date: 05/06/19 Status: Ordered Nystop 409210 u/gm powder See Instructions, # 15 Gm, APPLY THIN LAYER TO THE AFFECTED AREA TWICE DAILY, [facility] #[id number] Start Date: 10/19/18 Status: Ordered predniSONE 20 mg oral tablet See Instructions, 2 tablets daily for 5 days then 1 tablet daily for 5 days, # 15 tablet, 0 Refills, Maintenance, 07/30/19 8:25:00 EDT, Tablet, [facility] #05298, 152.4, cm, 07/30/19 8:01:00 EDT, Height Start Date: 07/30/19 Status: Ordered Singulair 10 mg oral tablet 10 mg, 1, tablet, By Mouth, Daily, # 90 tablet, Refills 3, Tot. Refills 3, Maintenance, 10/02/18 8:55:03 EDT, Route to Pharmacy Electronically, [id number], [facility] #[id number] Start Date: 10/02/18 Stop Date: 09/27/19 Status: [...] herpes simple x infection(Confirmed) Active Sinusitis(Confirmed) Active 33644 nl, repeat 2019 Vital Signs Most recent to oldest [Reference Range]: 1 Height 152.40 cm (07/30/19 8:01 AM) Mode of Delivery (Oxygen) Room air (07/30/19 8:01 AM) Social History Social History Type Response Smoking Status Former smoker; Other : Quit smoking age 35; entered on: 05/03/16 Sex
--- OUTSIDE RECORDS SUMMARY | 2023-06-02 10:58 | XMS_ITS | Continuity of Care Document ---
Author Name Unknown Organization [facility] Address [address] [place] [address]- Care Team Providers Care Senior Naval Parachutist Name Role Phone Brock Culver MD Primary Care Physician [phone] [facility] 01[facility]08[facility]21 - 02/18/21 [facility] Adult [address] [place] [address]- Attending Physician: Brock Culver MD Allergies, Adverse [...] 03/12/07 Give n 1Location History: [facility] 2Result Comment: [03/05/2013] FLUVIRIN LOT # [id number] EXP 05/31/13 3Result Comment: DID NOT GET 4Result Comment: PT REFUSED 5Admin Note: [facility] 6Location History: center pharmacy [facility] Medications CeleBREX 200 mg oral capsule 1 capsule = 200 mg, By Mouth, Daily, # 90 capsule, 0 Refills, Maintenance, 01/22/21 14:58:00 EST, Capsule, [facility] #39873, Partial fill upon patient request if the prescription is for a schedule II opioid drug., 152.4, cm, 11/30/20 14:28:... Start Date: 01/22/21 Stop Date: 04/22/21 Status: Ordered Diflucan 150 mg oral tablet 1 tablet = 150 mg, By Mouth, Once, # 1 tablet, 0 Refills, Soft Stop, 01/26/21 13:52:00 EST, [facility] #[id number], 152.4, cm, 11/30/20 14:28:00 EDT, Height Start Date: 01/26/21 Status: Ordered doxycycline hyclate 100 mg oral capsule 1 capsule = 100 mg, By Mouth, 2 times a day, # 20 capsule, 0 Refills, Maintenance, 02/08/21 10:39:00 EST, Capsule, [facility] #[id number], Partial fill upon patient request if the prescription is for a schedule II opioid drug., 152.4, cm, ... Start Date: 02/08/21 Status: Ordered escitalopram 10 mg oral tablet 1 tablet = 10 mg, By Mouth, Daily, # 30 tablet, 5 Refills, Maintenance, 10/30/20 8:13:00 EDT, Tablet, [facility] #45502, 152.4, cm, 10/13/20 7:01:00 EDT, Height Start Date: 10/30/20 Status: Ordered Flonase 50 mcg/inh nasal spray 2 sprays, Nares, Both, Daily in AM, # 16 Gm, 11 Refills, Maintenance, 11/30/20 14:56:00 EDT, [place] #63954, Partial fill upon patient request if the [...] herpes simple x infection(Confirmed) Active Sinusitis(Confirmed) Active 15593 nl, repeat 2019 Social History Social History Type Response Smoking Status Former smoker; Other : Quit smoking age 35; entered on: 05/03/16 Sex
--- OUTSIDE RECORDS SUMMARY | 2023-06-02 10:58 | XMS_ITS | Continuity of Care Document ---
Author Name Unknown Organization [facility] Address [address] [place] [address]- Care Team Providers Care Single Pass Soil Stabilizer Operator Name Role Phone Brock Culver MD Primary Care Physician [phone] [facility] 07[facility]19 - 08/18/19 [facility] [address] [place] [address] [facility] Attending Physician: Admtr, Mauri Admitting Physician: Admtr, Mauri Referring Physician: Admtr, Ar8 Allergies, Adverse Reactions, [...] 03/12/07 Give n 1Location History: [facility] 2Result Comment: [03/05/2013] FLUVIRIN LOT # [id number] EXP 05/31/13 3Result Comment: PT REFUSED 4Admin Note: [facility] 5Location History: [facility] 6Result Comment: DID NOT GET Medications Activella oral tablet 1 tablet, By Mouth, Daily, # 28 tablet, 3 Refills Start Date: 11/03/08 Status: Ordered Azithromycin 5 Day Dose Pack 250 mg oral tablet 1 pack/packet, By Mouth, Once, # 6 tablet, 0 Refills, Soft Stop, 07/30/19 8:25:00 EDT, Tablet, [facility] #[id number], 152.4, cm, 07/30/19 8:01:00 EDT, Height Start Date: 07/30/19 Status: Ordered Diflucan 150 mg oral tablet 1 tablet = 150 mg, By Mouth, Once, # 1 tablet, 0 Refills, Soft Stop, 06/25/19 14:21:00 EDT, [place],[facility] #89333, 152.4, cm, 05/13/19 7:38:00 EDT, Height Start Date: 06/25/19 Status: Ordered escitalopram 10 mg oral tablet 1 tablet = 10 mg, By Mouth, Daily, # 90 tablet, 4 Refills, Maintenance, 05/06/19 13:44:00 EST, Tablet, [facility] #16482, 152.4, cm, 03/18/19 15:27:00 EST, Height Start Date: 05/06/19 Status: Ordered Nystop 243959 u/gm powder See Instructions, # 15 Gm, APPLY THIN LAYER TO THE AFFECTED AREA TWICE DAILY, [facility] #[id number] Start Date: 10/19/18 Status: Ordered predniSONE 20 mg oral tablet See Instructions, 2 tablets daily for 5 days then 1 tablet daily for 5 days, # 15 tablet, 0 Refills, Maintenance, 07/30/19 8:25:00 EDT, Tablet, [facility] #30056, 152.4, cm, 07/30/19 8:01:00 EDT, Height Start Date: 07/30/19 Status: Ordered Singulair 10 mg oral tablet 10 mg, 1, tablet, By Mouth, Daily, # 90 tablet, Refills 1, Tot. Refills 1, Maintenance, 08/11/19 15:07:00 EDT, Route to Pharmacy Electronically, [facility] #[id number], 152.4, cm, 07/30/19 8:01:00 EDT, Height Start Date: 08/11/19 Stop Date: 02/07/20 Status: Ordered Zantac 150 oral tablet 1 [...] herpes simple x infection(Confirmed) Active Sinusitis(Confirmed) Active 72979 nl, repeat 2019 Social History Social History Type Response Smoking Status Former smoker; Other : Quit smoking age 35; entered on: 05/03/16 Sex
--- OUTSIDE RECORDS SUMMARY | 2023-06-02 10:58 | XMS_ITS | Continuity of Care Document ---
Author Name Unknown Organization [facility] Address [address] [place] [address]- Care Team Providers Care Patcher Helper Name Role Phone Brock Culver MD Primary Care Physician [facility] 03/17/20 - 04/16/20 [facility] Adult [address] [place] [address]- Attending Physician: Admtr, Ar8 Allergies, Adverse Reactions, [...] [place] 3Result Comment: [03/05/2013] FLUVIRIN LOT # [id number] EXP 05/31/13 4Result Comment: PT REFUSED 5Admin Note: [facility] 6Location History: [facility] Medications escitalopram 10 mg oral tablet 1 tablet = 10 mg, By Mouth, Daily, # 90 tablet, 4 Refills, Maintenance, 05/06/19 13:44:00 EST, Tablet, [facility] #[id number], 152.4, cm, 03/18/19 15:27:00 EST, Height Start Date: 05/06/19 Status: Ordered Singulair 10 mg oral tablet 10 mg, 1, tablet, By Mouth, Daily, # 90 tablet, Refills 1, Tot. Refills 1, Maintenance, 02/07/20 15:07:00 EST, Route to Pharmacy Electronically, [facility] #[id number], 152.4, cm, 01/10/20 11:58:00 EST, Height Start [...] herpes simple x infection(Confirmed) Active Sinusitis(Confirmed) Active 74509 nl, repeat 2019 Social History Social History Type Response Smoking Status Former smoker; Other : Quit smoking age 35; entered on: 05/03/16 Sex
--- OUTSIDE RECORDS SUMMARY | 2023-06-02 10:58 | XMS_ITS | Continuity of Care Document ---
Author Name Unknown Organization [facility] Address [address] [place] [address]- Care Team Providers Care Hydroelectric Plant Electrical Engineer Name Role Phone Brock Culver MD Primary Care Physician [facility]): 02[facility]08[facility]21 - 02/15/21 [facility] Adult [address] [place] [address]- Attending Physician: Brock Culver MD Allergies, Adverse [...] Give n 1Location History: [facility] 2Result Comment: [03/05/2013] FLUVIRIN LOT # [id number] EXP 05/31/13 3Result Comment: DID NOT GET 4Result Comment: PT REFUSED 5Admin Note: [facility] 6Location History: [facility] Medications CeleBREX 200 mg oral capsule 1 capsule = 200 mg, By Mouth, Daily, # 90 capsule, 0 Refills, Maintenance, 01/22/21 14:58:00 EST, Capsule, [facility] #[id number], Partial fill upon patient request if the prescription is for a schedule II opioid drug., 152.4, cm, 11/30/20 14:28:... Start Date: 01/22/21 Stop Date: 04/22/21 Status: Ordered Diflucan 150 mg oral tablet 1 tablet = 150 mg, By Mouth, Once, # 1 tablet, 0 Refills, Soft Stop, 01/26/21 13:52:00 EST, [facility] #[id number], 152.4, cm, 11/30/20 14:28:00 EDT, Height Start Date: 01/26/21 Status: Ordered doxycycline hyclate 100 mg oral capsule 1 capsule = 100 mg, By Mouth, 2 times a day, # 20 capsule, 0 Refills, Maintenance, 02/08/21 10:39:00 EST, Capsule, [facility] #[id number], Partial fill upon patient request if the prescription is for a schedule II opioid drug., 152.4, cm, ... Start Date: 02/08/21 Status: Ordered escitalopram 10 mg oral tablet 1 tablet = 10 mg, By Mouth, Daily, # 30 tablet, 5 Refills, Maintenance, 10/30/20 8:13:00 EDT, Tablet, [facility] #25213, 152.4, cm, 10/13/20 7:01:00 EDT, Height Start Date: 10/30/20 Status: Ordered Flonase 50 mcg/inh nasal spray 2 sprays, Nares, Both, Daily in AM, # 16 Gm, 11 Refills, Maintenance, 11/30/20 14:56:00 EDT, [place],[facility] #[id number], Partial fill upon patient request if the [...] herpes simple x infection(Confirmed) Active Sinusitis(Confirmed) Active 43199 nl, repeat 2019 Vital Signs Most recent to oldest [Reference Range]: 1 Height 152.40 cm (02/08/21 10:24 AM) Social History Social History Type Response Smoking Status Former smoker; Other : Quit smoking age 35; entered on: 05/03/16 Sex
--- OUTSIDE RECORDS SUMMARY | 2023-06-02 10:58 | XMS_ITS | Continuity of Care Document ---
Author Name Unknown Organization [facility] Address [address] [place] [address]- Care Team Providers Care Oil And Gas Principal Name Role Phone Brock Culver MD Primary Care Physician [phone] [facility] 01[facility]17[facility]23 - 02/19/23 [facility] Adult [address] [place] [address]- Attending Physician: Patricia Reilly NP Referring Physician: Brock Culver MD Allergies, Adverse Reactions, Alerts No Known Allergies Immunizations Given and Recorded Vaccine Date Status Refusal Reason SARS-CoV-2(COVID-19)mRNA-LNP vac([id number]) 02/04/23 Recorded influenza virus vaccine, inactivated 01/13/23 [...] virus vaccine, inactivated 1, 2 02/27/13 Recorded [id number] bivalent booster vax 01/02/22 Recorded SARS-CoV-2 (COVID-19) [...] 03/12/07 Give n 1Location History: [facility] 2Result Comment: [03/05/2013] FLUVIRIN LOT # [id number] EXP 05/31/13 3Location History: [facility] pharmacy [facility] Medications escitalopram 10 mg oral tablet 1 tablet, By Mouth, Daily, # 90 tablet, 3 Refills, Maintenance, 09/05/22 14:05:00 EDT, [facility] #[id number], 152.4, cm, 09/05/22 12:54:00 EDT, Height Start Date: 09/05/22 Status: Ordered fluticasone 50 mcg/inh nasal spray 2 sprays = 100 mcg, Nares, Both, Daily in AM, # 16 Gm, 11 Refills, Maintenance, 02/10/23 14:27:00 EST, [place], [facility] #81727, Partial fill upon patient request if the prescription is fora schedule II opioid drug., 2 sprays Nares, Both Da... Start Date: 02/10/23 Status: Ordered levoFLOXacin 500 mg oral tablet 1 tablet = 500 mg, By Mouth, Every 24 hours, for 10 days, # 10 tablet, 0 Refills, Acute 02/20/23 14:21:00 EST, 02/10/23 14:21:00 EST, Tablet, [facility] #[id number], Partial fill upon patient request if the prescription is for a schedule II opioi... Start Date: 02/10/23 Stop Date: 02/20/23 Status: Ordered metroNIDAZOLE 250 mg oral tablet 1 tablet = 250 mg, By Mouth, 3 times a day, for 10 days, # 30 tablet, 0 Refills, Acute 02/20/23 14:21:00 EST, 02/10/23 14:21:00 EST, Tablet, [facility] #[id number], Partial fill upon patient request if the prescription is for a schedule II opioid... Start Date: 02/10/23 Stop Date: 02/20/23 Status: Ordered predniSONE 20 mg oral tablet 2 tablet = 40 mg, By Mouth, Daily, PRN severe cough, # 20 tablet, 0 Refills, Maintenance, 02/10/23 14:26:00 EST, Tablet, [facility] #71777, Partial fill upon patient request if the [...] patch, 0 Refills, Maintenance, 02/10/23 14:23:00 EST, [facility] #90746, Partial fill upon patient request if the prescription is for a schedule II opioid drug., 1 patch Topically Every 72 hours, 152.4... Start Date: 02/10/23 Status: Ordered ZyrTEC 10 mg oral tablet 1 tablet = 10 mg, By Mouth, Daily, # 90 tablet, 3 Refills, Maintenance, 04/09/21 14:24:00 EST, Tablet, [facility] #09633, Partial fill upon patient request if the [...] Recurrent oral herpes simplex infection Confirmed Active 89319; repeat 2030 49140 nl, repeat 2019 Social History Social History Type Response Smoking Status Former smoker; Other : Quit smoking age 35; entered on: 05/03/16 Sex Patient Care team information Care Team Personnel Name: Brock Culver MD Position: [facility] Physician - Primary Care Member Role: PCP Address: Address: [address] [place] [address]- Care Team Related Persons Name: SAMUEL ROY Address: home [address] [place] [address] Name: NAINA MCFARLANE Address: home [address] [place] [address]
--- OUTSIDE RECORDS SUMMARY | 2023-06-02 10:58 | XMS_ITS | Continuity of Care Document ---
Author Name Unknown Organization [facility] Address [address] [place] [address] [address] [place] [address]- Care Team Providers Care Plastic Press Operator Name Role Phone Brock Culver MD Primary Care Physician [phone] [facility] - 04/17/[address] [place] [address]- [facility] Attending Physician: Robel LAM, Mindy Churchill Referring Physician: Brock Culver MD Allergies, Adverse [...] 03/12/07 Give n 1[facility] 2Result Comment: [03/05/2013] FLUVIRIN LOT # [id number] EXP 05/31/13 3Result Comment: PT REFUSED 4Admin Note: [facility] 5Location History: [facility] 6Result Comment: DID NOT GET Medications Activella oral tablet 1 tablet, By Mouth, Daily, # 28 tablet, 3 Refills Start Date: 11/03/08 Status: Ordered escitalopram 10 mg oral tablet 1 tablet = 10 mg, By Mouth, Daily, # 90 tablet, 3 Refills, Maintenance, 09/16/17 10:11:27 EDT, Tablet Start Date: 09/16/17 Status: Ordered Nystop 215988 u/gm powder See Instructions, # 15 Gm, APPLY THIN LAYER TO THE AFFECTED AREA TWICE DAILY, [facility] #[id number] Start Date: 10/19/18 Status: Ordered predniSONE 20 mg oral tablet See Instructions, 2 tablets daily for 5 days then 1 tablet daily for 5 days, # 15 tablet, 0 Refills, Maintenance, 03/18/19 15:59:00 EST, Tablet, [facility] #[id number], 152.4, cm, 03/18/19 15:27:00 EST, Height Start Date: 03/18/19 Status: Ordered Singulair 10 mg oral tablet 10 mg, 1, tablet, By Mouth, Daily, # 90 tablet, Refills 3, Tot. Refills 3, Maintenance, 10/02/18 8:55:03 EDT, Route to Pharmacy Electronically, [id number], [facility] #[id number] Start Date: 10/02/18 Stop Date: 09/27/19 Status: [...] cough(Confirmed) Active Colonoscopy(Confirmed) 1 Active Depression(Confirmed) Active Female climacteric state(Confirmed) Active Acid reflux(Confirmed) Active H/O heartburn(Confirmed) Active Recurrent oral herpes simple x infection(Confirmed) Active Sinusitis(Confirmed) Active 40664 nl, repeat 2019 Social History Social History Type Response Smoking Status Former smoker; Other : Quit smoking age 35; entered on: 05/03/16 Sex
--- OUTSIDE RECORDS SUMMARY | 2023-06-02 10:58 | XMS_ITS | Continuity of Care Document ---
Author Name Unknown Organization [facility] Address [address] [place] [address]- Care Team Providers Care Frame Wirer Name Role Phone Brock Culver MD Primary Care Physician [facility]): 01/19/21 - 02/18/21 [facility] Adult [address] [place] [address]- Allergies, Adverse Reactions, Alerts Substance Reaction Severity [...] 03/12/07 Give n 1Location History: [facility] 2Result Comment: [03/05/2013] FLUVIRIN LOT # [id number] EXP 05/31/13 3Result Comment: DID NOT GET 4Result Comment: PT REFUSED 5Admin Note: [facility] 6Location History: [facility] Medications CeleBREX 200 mg oral capsule 1 capsule = 200 mg, By Mouth, Daily, # 90 capsule, 0 Refills, Maintenance, 01/22/21 14:58:00 EST, Capsule, [facility] #[id number], Partial fill upon patient request if the prescription is for a schedule II opioid drug., 152.4, cm, 11/30/20 14:28:... Start Date: 01/22/21 Stop Date: 04/22/21 Status: Ordered Diflucan 150 mg oral tablet 1 tablet = 150 mg, By Mouth, Once, # 1 tablet, 0 Refills, Soft Stop, 01/26/21 13:52:00 EST, [facility] #[id number], 152.4, cm, 11/30/20 14:28:00 EDT, Height Start Date: 01/26/21 Status: Ordered doxycycline hyclate 100 mg oral capsule 1 capsule = 100 mg, By Mouth, 2 times a day, # 20 capsule, 0 Refills, Maintenance, 02/08/21 10:39:00 EST, [place], [facility] #[id number], Partial fill upon patient request if the prescription is for a schedule II opioid drug., 152.4, cm, ... Start Date: 02/08/21 Status: Ordered escitalopram 10 mg oral tablet 1 tablet = 10 mg, By Mouth, Daily, # 30 tablet, 5 Refills, Maintenance, 10/30/20 8:13:00 EDT, Tablet, [facility] #[id number], 152.4, cm, 10/13/20 7:01:00 EDT, Height Start Date: 10/30/20 Status: Ordered Flonase 50 mcg/inh nasal spray 2 sprays, Nares, Both, Daily in AM, # 16 Gm, 11 Refills, Maintenance, 11/30/20 14:56:00 EDT, [place],[facility] #[id number], Partial fill upon patient request if the [...] herpes simple x infection(Confirmed) Active Sinusitis(Confirmed) Active 37931 nl, repeat 2019 Social History Social History Type Response Smoking Status Former smoker; Other : Quit smoking age 35; entered on: 05/03/16 Sex
--- OUTSIDE RECORDS SUMMARY | 2023-06-02 10:58 | XMS_ITS | Continuity of Care Document ---
Author Name Unknown Organization [facility] Address [address] [place] [address]- Care Team Providers Care Plant Worker Name Role Phone Brock Culver MD Primary Care Physician [facility]): 10[facility]31/20 - 11/07/20 [facility] Adult [address] [place] [address]- Encounter Diagnosis Cough(Discharge Diagnosis) - 10/31/20 Attending Physician: Not on Staff, Attending MD Allergies, Adverse Reactions, Alerts Substance Reaction [...] DID NOT GET 2Location History: [facility] 3Result Comment: [03/05/2013] FLUVIRIN LOT # [id number] EXP 05/31/13 4Result Comment: PT REFUSED 5Admin Note: [facility] 6Location History: center [facility] Medications escitalopram 10 mg oral tablet 1 tablet = 10 mg, By Mouth, Daily, # 30 tablet, 5 Refills, Maintenance, 10/30/20 8:13:00 EDT, Tablet, [facility] #[id number], 152.4, cm, 10/13/20 7:01:00 EDT, Height Start Date: 10/30/20 Status: Ordered Flonase 50 mcg/inh nasal spray 2 sprays, Nares, Both, Daily in AM, # 16 Gm, 11 Refills, Maintenance, 09/05/20 11:32:00 EDT, [place],[facility] #[id number], Partial fill upon patient request if the [...] herpes simple x infection(Confirmed) Active Sinusitis(Confirmed) Active 20668 nl, repeat 2019 Diagnosis Diagnosis Type Effective Dates Health Status Clini levon Service Informant Cough Discharge Diagnosis 10/31/20 Vital Signs Most recent to oldest [Reference Range]: 1 Height 152.40 cm (10/31/20 2:47 PM) Social History Social History Type Response Smoking Status Former smoker; Other : Quit smoking age 35; entered on: 05/03/16 Sex
--- OUTSIDE RECORDS SUMMARY | 2023-06-02 10:58 | XMS_ITS | Continuity of Care Document ---
Author Name Unknown Organization [facility] Address [address] [place] [address]- Care Team Providers Care Sales Agent Pest Control Service Name Role Phone Abiola LAM, Brock Junior Primary Care Physician [facility]s): 01/22/22 - 01/29/22 [facility] Adult [address] [place] [address]- Encounter Diagnosis Acute bronchitis(Discharge Diagnosis) - 01/22/22 Attending Physician: Yulissa Willson NP Allergies, Adverse Reactions, Alerts No Known Allergies [...] Give n 1Location History: [facility] 2Result Comment: [03/05/2013] FLUVIRIN LOT # [id number] EXP 05/31/13 3Result Comment: DID NOT GET 4Result Comment: PT REFUSED 5Admin Note: [employer] 6Location History: [facility] pharmacy [facility] Medications amoxicillin 875 mg oral tablet 1 tablet = 875 mg, By Mouth, 2 times a day, for 7 days, # 14 tablet, 0 Refills, Acute 01/30/22 12:35:00 EST, 01/23/22 12:35:00 EST, Tablet, [facility] #[id number], Partial fill upon patient request if the prescription is for a schedule II opioid... Start Date: 01/23/22 Stop Date: 01/30/22 Status: Ordered amoxicillin 875 mg oral tablet 1 tablet = 875 mg, By Mouth, 2 times a day, # 14 tablet, 0 Refills, Maintenance, 11/02/21 11:39:00 EDT, Tablet, [facility] #[id number], Partial fill upon patient request if the prescription is for a schedule II opioid drug., 152.4, cm, 11/02/21 1... Start Date: 11/02/21 Stop Date: 11/09/21 Status: Ordered escitalopram 10 mg oral tablet 1 tablet, By Mouth, Daily, # 90 tablet, 3 Refills, Maintenance, 01/27/22 7:54:00 EST, [facility] #[id number], 152.4, cm, 01/22/22 15:53:00 EST, Height Start Date: 01/27/22 Status: Ordered Flonase 50 mcg/inh nasal spray 2 sprays, Nares, Both, Daily in AM, # 16 Gm, 11 Refills, Maintenance, 11/30/20 14:56:00 EDT, [place],[facility] #[id number], Partial fill upon patient request if the [...] Refills, Maintenance, 01/22/22 15:55:00 EST, ER Tablet, [facility]... Start Date: 01/22/22 Status: Ordered predniSONE 10 mg oral tablet 1 tablet = 10 mg, By Mouth, 2 times a day, # 10 tablet, 0 Refills, Maintenance, 01/22/22 15:54:00 EST, Tablet, [facility] #[id number], Partial fill upon patient request if the prescription is for a schedule II opioid drug., 152.4, cm, 01/22/22 15... Start Date: 01/22/22 Stop Date: 01/27/22 Status: Ordered predniSONE 20 mg oral tablet 1 tablet = 20 mg, By Mouth, Daily, # 7 tablet, 2 Refills, Maintenance, 09/14/21 10:40:00 EDT, Tablet, [facility] #[id number], Partial fill upon patient request if the prescription is for a schedule II opioid drug., 152.4, cm, 09/14/21 10:23:00 ED... Start Date: 09/14/21 Stop Date: 10/05/21 Status: Ordered ProAir HFA 90 mcg/inh inhalation aerosol with adapter 2, puffs, Inhalation, Every 6 hours, PRN, # 8.5 Gm, Refills 0, Tot. Refills 0, Maintenance, 01/22/22 15:57:00 EST, Aerosol, Route to Pharmacy Electronically, [id number], [facility] #[id number], 152.4, cm, 01/22/22 15:53:... Start Date: 01/22/22 [...] 3 Refills, Maintenance, 04/09/21 14:24:00 EST, Tablet, [facility] #[id number], Partial fill upon patient request if the [...] simplex infection Confirmed Active Sinusitis Confirmed Active 96227; repeat 2030 69489 nl, repeat 2019 Diagnosis Diagnosis Type Effective Dates Health Status Clinical Service Informant Acute bronchitis Discharge Diagnosis 01/22/22 Vital Signs Most recent to oldest [Reference Range]: 1 Height 152.40 cm (01/22/22 3:53 PM) Social History Social History Type Response Smoking Status Former smoker; Other : Quit smoking age 35; entered on: 05/03/16 Sex Patient Care team information Care Team Personnel Name: Brock Culver MD Position: [facility] Primary Care Physician Member Role: PCP Address: Address: [address] [place] [address]- Care Team Related Persons Name: SAMUEL ROY Address: home [address] [place] [address] Name: NAINA MCFARLANE Address: [address] [place] [address]
--- OUTSIDE RECORDS SUMMARY | 2023-06-02 10:58 | XMS_ITS | Continuity of Care Document ---
Author Name Unknown Organization [facility] Address [address] [place] [address]- Care Team Providers Care Pipeline Operator Name Role Phone Brock Culver MD Primary Care Physician [phone] [facility](s): 01/08/21 - 02/07/21 [facility] Adult [address] [place] [address]- Allergies, Adverse Reactions, Alerts Substance Reaction Severity [...] DID NOT GET 2Location History: [facility] 3Result Comment: [03/05/2013] FLUVIRIN LOT # [id number] EXP 05/31/13 4Result Comment: PT REFUSED 5Admin Note: [facility] 6Location History: center pharmacy [facility] Medications CeleBREX 200 mg oral capsule 1 capsule = 200 mg, By Mouth, Daily, # 90 capsule, 0 Refills, Maintenance, 01/22/21 14:58:00 EST, Capsule, [facility] #[id number], Partial fill upon patient request if the prescription is for a schedule II opioid drug., 152.4, cm, 11/30/20 14:28:... Start Date: 01/22/21 Stop Date: 04/22/21 Status: Ordered Diflucan 150 mg oral tablet 1 tablet = 150 mg, By Mouth, Once, # 1 tablet, 0 Refills, Soft Stop, 01/26/21 13:52:00 EST, [facility] #[id number], 152.4, cm, 11/30/20 14:28:00 EDT, Height Start Date: 01/26/21 Status: Ordered escitalopram 10 mg oral tablet 1 tablet = 10 mg, By Mouth, Daily, # 30 tablet, 5 Refills, Maintenance, 10/30/20 8:13:00 EDT, Tablet, [facility] #07084, 152.4, cm, 10/13/20 7:01:00 EDT, Height Start Date: 10/30/20 Status: Ordered Flonase 50 mcg/inh nasal spray 2 sprays, Nares, Both, Daily in AM, # 16 Gm, 11 Refills, Maintenance, 11/30/20 14:56:00 EDT, [place],[facility] #[id number], Partial fill upon patient request if the [...] herpes simple x infection(Confirmed) Active Sinusitis(Confirmed) Active 76005 nl, repeat 2019 Social History Social History Type Response Smoking Status Former smoker; Other : Quit smoking age 35; entered on: 05/03/16 Sex
--- OUTSIDE RECORDS SUMMARY | 2023-06-02 10:59 | XMS_ITS | Continuity of Care Document ---
Author Name Unknown Organization [facility] Address [address] [place] [address]- Care Team Providers Care Application Release Manager Name Role Phone Brock Culver MD Primary Care Physician [facility] 09/14/21 - 09/21/21 [facility] Adult [address] [place] [address]- Encounter Diagnosis Chronic cough(Discharge Diagnosis) - 09/14/21 Attending Physician: Gail Mckeon Allergies, Adverse Reactions, Alerts No Known Allergies [...] 03/12/07 Give n 1Location History: [facility] 2Result Comment: [03/05/2013] FLUVIRIN LOT # [id number] EXP 05/31/13 3Result Comment: DID NOT GET 4Result Comment: PT REFUSED 5Admin Note: [facility] 6Location History: [facility] Medications escitalopram 10 mg oral tablet 1 tablet = 10 mg, By Mouth, Daily, # 30 tablet, 5 Refills, Maintenance, 10/30/20 8:13:00 EDT, Tablet, [facility] #[id number], 152.4, cm, 10/13/20 7:01:00 EDT, Height Start Date: 10/30/20 Status: Ordered Flonase 50 mcg/inh nasal spray 2 sprays, Nares, Both, Daily in AM, # 16 Gm, 11 Refills, Maintenance, 11/30/20 14:56:00 EDT, [place],[facility] #[id number], Partial fill upon patient request if the prescription is for a schedule II opioid drug., 2 sprays Nares, Both Daily in AM,... Start Date: 11/30/20 Status: Ordered predniSONE 20 mg oral tablet 1 tablet = 20 mg, By Mouth, Daily, # 7 tablet, 2 Refills, Maintenance, 09/14/21 10:40:00 EDT, Tablet, [facility] #[id number], Partial fill upon patient request if the prescription is for a schedule II opioid drug., 152.4, cm, 09/14/21 10:23:00 ED... Start Date: 09/14/21 Stop Date: 10/05/21 Status: Ordered ZyrTEC 10 mg oral tablet 1 tablet = 10 mg, By Mouth, Daily, # 90 tablet, 3 Refills, Maintenance, 04/09/21 14:24:00 EST, Tablet, [facility] #[id number], Partial fill upon patient request if the [...] herpes simple x infection(Confirmed) Active Sinusitis(Confirmed) Active 06862; repeat 2030 05664 nl, repeat 2019 Diagnosis Diagnosis Type Effective Dates Health Status Cl inical Service Informant Chronic cough Discharge Diagnosis 09/14/21 Vital Signs Most recent to oldest [Reference Range]: 1 Height 152.40 cm (09/14/21 10:23 AM) Weight 63.63 kg (09/14/21 10:23 AM) Body Mass Index [18.5-24.99] 27.4 *H* (09/14/21 10:23 AM) Social History Social History Type Response Smoking Status Former smoker; Other : Quit smoking age 35; entered on: 05/03/16 Sex
--- OUTSIDE RECORDS SUMMARY | 2023-06-02 10:59 | XMS_ITS | Continuity of Care Document ---
Author Name Unknown Organization [facility] Address [address] [place] [address]- Care Team Providers Care Lumber Sticker Name Role Phone Brock Culver MD Primary Care Physician [facility]s): 01/26/21 - 02/25/21 [facility] Adult [address] [place] [address]- Allergies, Adverse Reactions, Alerts Substance Reaction Severity [...] Give n 1Location History: [facility] 2Result Comment: [03/05/2013] FL[facility]IRIN LOT # [id number] EXP 05/31/13 3Result Comment: DID NOT GET 4Result Comment: PT REFUSED 5Admin Note: [facility] 6Location History: [facility] Medications CeleBREX 200 mg oral capsule 1 capsule = 200 mg, By Mouth, Daily, # 90 capsule, 0 Refills, Maintenance, 01/22/21 14:58:00 EST, [place], [facility] #[id number], Partial fill upon patient request if the prescription is for a schedule II opioid drug., 152.4, cm, 11/30/20 14:28:... Start Date: 01/22/21 Stop Date: 04/22/21 Status: Ordered Diflucan 150 mg oral tablet 1 tablet = 150 mg, By Mouth, Once, # 1 tablet, 0 Refills, Soft Stop, 01/26/21 13:52:00 EST, [facility] #[id number], 152.4, cm, 11/30/20 14:28:00 EDT, Height Start Date: 01/26/21 Status: Ordered doxycycline hyclate 100 mg oral capsule 1 capsule = 100 mg, By Mouth, 2 times a day, # 20 capsule, 0 Refills, Maintenance, 02/08/21 10:39:00 EST, [place], [facility] #31235, Partial fill upon patient request if the prescription is for a schedule II opioid drug., 152.4, cm, ... Start Date: 02/08/21 Status: Ordered escitalopram 10 mg oral tablet 1 tablet = 10 mg, By Mouth, Daily, # 30 tablet, 5 Refills, Maintenance, 10/30/20 8:13:00 EDT, Tablet, [facility] #[id number], 152.4, cm, 10/13/20 7:01:00 EDT, Height Start Date: 10/30/20 Status: Ordered Flonase 50 mcg/inh nasal spray 2 sprays, Nares, Both, Daily in AM, # 16 Gm, 11 Refills, Maintenance, 11/30/20 14:56:00 EDT, [place],[facility] #58361, Partial fill upon patient request if the prescription is for a schedule II opioid drug., 2 sprays Nares, Both Daily in AM,... Start Date: 11/30/20 Status: Ordered predniSONE 20 mg oral tablet 1 tablet = 20 mg, By Mouth, Daily, # 10 tablet, 0 Refills, Acute 03/02/21 14:37:00 EST, 02/20/21 15:03:00 EST, [facility] #31592, Partial fill upon patient request if the [...] herpes simple x infection(Confirmed) Active Sinusitis(Confirmed) Active 38692 nl, repeat 2020 Social History Social History Type Response Smoking Status Former smoker; Other : Quit smoking age 35; entered on: 05/03/16 Sex
--- OUTSIDE RECORDS SUMMARY | 2023-06-02 10:59 | XMS_ITS | Continuity of Care Document ---
Author Name Unknown Organization [facility] Address [address] [place] [address]- Care Team Providers Care Strap Sewer Name Role Phone Brock Culver MD Primary Care Physician [phone] [facility] 02/10/23 - 03/12/23 [facility] Adult [address] [place] [address]- Attending Physician: Admtr, Ar8 Allergies, Adverse Reactions, Alerts No Known Allergies Immunizations Given and Recorded Vaccine Date Status Refusal Reason SARS-CoV-2(COVID-19)mRNA-LNP vac([id number]) 02/04/23 Recorded influenza virus vaccine, inactivated 01/13/23 [...] virus vaccine, inactivated 1, 2 02/27/13 Recorded [id number] bivalent booster vax 01/02/22 Recorded SARS-CoV-2 (COVID-19) [...] Give n 1Location History: [facility] 2Result Comment: [03/05/2013] FLUVIRIN LOT # [id number] EXP 05/31/13 3Location History: [facility] pharmacy [facility] Medications escitalopram 10 mg oral tablet 1 tablet, By Mouth, Daily, # 90 tablet, 3 Refills, Maintenance, 09/05/22 14:05:00 EDT, [facility] #[id number], 152.4, cm, 09/05/22 12:54:00 EDT, Height Start Date: 09/05/22 Status: Ordered fluticasone 50 mcg/inh nasal spray 2 sprays = 100 mcg, Nares, Both, Daily in AM, # 16 Gm, 11 Refills, Maintenance, 02/10/23 14:27:00 EST, [place], [facility] #64879, Partial fill upon patient request if the prescription is fora schedule II opioid drug., 2 sprays Nares, Both Da... Start Date: 02/10/23 Status: Ordered predniSONE 20 mg oral tablet 2 tablet = 40 mg, By Mouth, Daily, PRN severe cough, # 20 tablet, 0 Refills, Maintenance, 02/10/23 14:26:00 EST, Tablet, [facility] #[id number], Partial fill upon patient request if the [...] patch, 0 Refills, Maintenance, 02/10/23 14:23:00 EST, [facility] #44207, Partial fill upon patient request if the prescription is for a schedule II opioid drug., 1 patch Topically Every 72 hours, 152.4... Start Date: 02/10/23 Status: Ordered ZyrTEC 10 mg oral tablet 1 tablet = 10 mg, By Mouth, Daily, # 90 tablet, 3 Refills, Maintenance, 04/09/21 14:24:00 EST, Tablet, [facility] #07073, Partial fill upon patient request if the [...] Recurrent oral herpes simplex infection Confirmed Active 45338; repeat 2030 02151 nl, repeat 2020 Procedures Procedure Date Related Diagnosis Body Site Status Colonoscopy 1 11/07/20 Completed 1repeat 2030 Social History Social History Type Response Smoking Status Former smoker; Other : Quit smoking age 35; entered on: 05/03/16 Sex Laboratory * Event Display: Non BH Lab Results Authored Date: * Event Display: Non Lab Results Authored Date: Radiology * Event Display: CT Scan Abdomen, Non- BH Authored Date: * Event Display: Radiology Result Scanned Authored Date: * Event Display: Radiology Result Scanned Authored Date: * Leonela Hall: PERFORM Event Display: Radiology Results Scanned Authored Date: [id number] Patient Care team information Care Team Personnel Name: Brock Culver MD Position: S Physician - Primary Care Member Role: PCP Address: Address: [address] [place] [address], [place] [address]- [place] Care Team Related Persons Name: SAMUEL ROY Address: [address] [place] [address] Name: NAINA MCFARLANE Address: [address] [place] [address]
--- OUTSIDE RECORDS SUMMARY | 2023-06-02 10:59 | XMS_ITS | Continuity of Care Document ---
Author Name Unknown Organization [facility] Address [address] [place] [address]- Care Team Providers Care Trust Vault Clerk Name Role Phone Brock Culver MD Primary Care Physician [facility] 10[facility]27[facility]20 - 11/26/20 [facility] Adult [address] [place] [address]- Allergies, Adverse Reactions, Alerts Substance Reaction Severity [...] DID NOT GET 2Location History: [facility] 3Result Comment: [03/05/2013] FLUVIRIN LOT # [id number] EXP 05/31/13 4Result Comment: PT REFUSED 5Admin Note: [employer] [facility] 6Location History: center pharmacy [facility] Medications escitalopram 10 mg oral tablet 1 tablet = 10 mg, By Mouth, Daily, # 30 tablet, 5 Refills, Maintenance, 10/30/20 8:13:00 EDT, Tablet, [facility] #[id number], 152.4, cm, 10/13/20 7:01:00 EDT, Height Start Date: 10/30/20 Status: Ordered Flonase 50 mcg/inh nasal spray 2 sprays, Nares, Both, Daily in AM, # 16 Gm, 11 Refills, Maintenance, 09/05/20 11:32:00 EDT, [place],[facility] #[id number], Partial fill upon patient request if the [...] herpes simple x infection(Confirmed) Active Sinusitis(Confirmed) Active 67447 nl, repeat 2019 Social History Social History Type Response Smoking Status Former smoker; Other : Quit smoking age 35; entered on: 05/03/16 Sex
--- OUTSIDE RECORDS SUMMARY | 2023-06-02 10:59 | XMS_ITS | Continuity of Care Document ---
Author Name Unknown Organization [facility] Address [address] [place] [address]- Care Team Providers Care Gambling Monitor Name Role Phone Abiola LAM, Brock Junior Primary Care Physician [facility]): 09/01/20 - 10/01/20 [facility] Adult [address] [place] [address]- Allergies, Adverse Reactions, Alerts Substance Reaction Severity [...] GET 2Location History: [facility] 3Result Comment: [03/05/2013] FLUVIRIN LOT # [id number] EXP 05/31/13 4Result Comment: PT REFUSED 5Admin Note: [facility] 6Location History: center pharmacy [facility] Medications Flonase 50 mcg/inh nasal spray 2 sprays, Nares, Both, Daily in AM, # 16 Gm, 11 Refills, Maintenance, 09/05/20 11:32:00 EDT, [place],[facility] #[id number], Partial fill upon patient request if the [...] herpes simple x infection(Confirmed) Active Sinusitis(Confirmed) Active 87924 nl, repeat 2019 Social History Social History Type Response Smoking Status Former smoker; Other : Quit smoking age 35; entered on: 05/03/16 Sex
--- OUTSIDE RECORDS SUMMARY | 2023-06-02 10:59 | XMS_ITS | Continuity of Care Document ---
Author Name Unknown Organization [facility] Address [address] [place] [address]- Care Team Providers Care Software Computer Specialist Name Role Phone Brock Culver MD Primary Care Physician [facility] - 03/28/19 [facility] [address] [place] [address]- [facility] Attending Physician: Admtr, Ar8 Allergies, Adverse Reactions, [...] Give n 1Location History: [facility] 2Result Comment: [03/05/2013] FLUVIRIN LOT # [id number] EXP 05/31/13 3Result Comment: PT REFUSED 4Admin Note: [facility] [place] 5Location History: center pharmacy [facility] 6Result Comment: DID NOT GET Medications Activella oral tablet 1 tablet, By Mouth, Daily, # 28 tablet, 3 Refills Start Date: 11/03/08 Status: Ordered escitalopram 10 mg oral tablet 1 tablet = 10 mg, By Mouth, Daily, # 90 tablet, 3 Refills, Maintenance, 09/16/17 10:11:27 EDT, Tablet Start Date: 09/16/17 Status: Ordered Nystop 835525 u/gm powder See Instructions, # 15 Gm, APPLY THIN LAYER TO THE AFFECTED AREA TWICE DAILY, [facility] #[id number] Start Date: 10/19/18 Status: Ordered predniSONE 20 mg oral tablet See Instructions, 2 tablets daily for 5 days then 1 tablet daily for 5 days, # 15 tablet, 0 Refills, Maintenance, 03/18/19 15:59:00 EST, Tablet, [facility] #[id number], 152.4, cm, 03/18/19 15:27:00 EST, Height Start Date: 03/18/19 Status: Ordered Singulair 10 mg oral tablet 10 mg, 1, tablet, By Mouth, Daily, # 90 tablet, Refills 3, Tot. Refills 3, Maintenance, 10/02/18 8:55:03 EDT, Route to Pharmacy Electronically, [id number], [facility] #[id number] Start Date: 10/02/18 Stop Date: 09/27/19 Status: [...] herpes simple x infection(Confirmed) Active Sinusitis(Confirmed) Active 24038 nl, repeat 2019 Social History Social History Type Response Smoking Status Former smoker; Other : Quit smoking age 35; entered on: 05/03/16 Sex
--- OUTSIDE RECORDS SUMMARY | 2023-06-02 10:59 | XMS_ITS | Continuity of Care Document ---
Author Name Unknown Organization [facility] Address [address] [place] [address]- Care Team Providers Care Doctor Of Radiology Name Role Phone Brock Culver MD Primary Care Physician [phone] [facility] Date[facility]s): 03/29/21 - 04/29/21 [facility] Adult [address] [place] [address]- Attending Physician: Not on Staff, Attending MD [...] [facility] 2Result Comment: [03/05/2013] FLUVIRIN LOT # [id number] EXP 05/31/13 3Result Comment: DID NOT GET 4Result Comment: PT REFUSED 5Admin Note: [facility] [place] 6Location History: center pharmacy [facility] Medications escitalopram 10 mg oral tablet 1 tablet = 10 mg, By Mouth, Daily, # 30 tablet, 5 Refills, Maintenance, 10/30/20 8:13:00 EDT, Tablet, [facility] #[id number], 152.4, cm, 10/13/20 7:01:00 EDT, Height Start Date: 10/30/20 Status: Ordered Flonase 50 mcg/inh nasal spray 2 sprays, Nares, Both, Daily in AM, # 16 Gm, 11 Refills, Maintenance, 11/30/20 14:56:00 EDT, [place],[facility] #[id number], Partial fill upon patient request if the prescription is for a schedule II opioid drug., 2 sprays Nares, Both Daily in AM,... Start Date: 11/30/20 Status: Ordered ZyrTEC 10 mg oral tablet 1 tablet = 10 mg, By Mouth, Daily, # 90 tablet, 3 Refills, Maintenance, 04/09/21 14:24:00 EST, Tablet, [facility] #[id number], Partial fill upon patient request if the [...] herpes simple x infection(Confirmed) Active Sinusitis(Confirmed) Active 34435 nl, repeat 2019 Social History Social History Type Response Smoking Status Former smoker; Other : Quit smoking age 35; entered on: 05/03/16 Sex
--- OUTSIDE RECORDS SUMMARY | 2023-06-02 10:59 | XMS_ITS | Continuity of Care Document ---
Author Name Unknown Organization [facility] Address [address] [place] [address]- Care Team Providers Care Employment Educational Coord Name Role Phone Brock Culver MD Primary Care Physician [facility] Date[facility]s): 11/16/19 - 12/16/19 [facility] Adult [address] [place] [address]- [facility] Attending Physician: Admtr, Ar8 Allergies, Adverse Reactions, [...] Give n 1Location History: [facility] 2Result Comment: [03/05/2013] FLUVIRIN LOT # [id number] EXP 05/31/13 3Result Comment: PT REFUSED 4Admin Note: [facility] 5Location History: center pharmacy [facility] 6Result Comment: DID NOT GET Medications Activella oral tablet 1 tablet, By Mouth, Daily, # 28 tablet, 3 Refills Start Date: 11/03/08 Status: Ordered Azithromycin 3 Day Dose Pack 500 mg oral tablet 2 tablet = 1,000 mg, By Mouth, Once, # 2 tablet, 0 Refills, Soft Stop, 11/18/19 8:20:00 EDT, Tablet, [facility] #[id number], 152.4, cm, 11/16/19 10:20:00 EDT, Height Start Date: 11/18/19 Status: Ordered Azithromycin 5 Day Dose Pack 250 mg oral tablet 1 pack/packet, By Mouth, Once, # 6 tablet, 0 Refills, Soft Stop, 11/18/19 8:20:00 EDT, Tablet, [facility] #75660, 152.4, cm, 11/16/19 10:20:00 EDT, Height Start Date: 11/18/19 Status: Ordered escitalopram 10 mg oral tablet 1 tablet = 10 mg, By Mouth, Daily, # 90 tablet, 4 Refills, Maintenance, 05/06/19 13:44:00 EST, Tablet, [facility] #46087, 152.4, cm, 03/18/19 15:27:00 EST, Height Start Date: 05/06/19 Status: Ordered predniSONE 20 mg oral tablet 2 tablet = 40 mg, By Mouth, Daily, # 14 tablet, 0 Refills, Maintenance, 11/16/19 15:48:00 EDT, Tablet, [facility] #[id number], 152.4, cm, 11/16/19 10:20:00 EDT, Height Start Date: 11/16/19 Status: Ordered predniSONE 20 mg oral tablet See Instructions, 2 tablets daily for 5 days then 1 tablet daily for 5 days, # 15 tablet, 0 Refills, Maintenance, 07/30/19 8:25:00 EDT, Tablet, [facility] #58484, 152.4, cm, 07/30/19 8:01:00 EDT, Height Start Date: 07/30/19 Status: Ordered Singulair 10 mg oral tablet 10 mg, 1, tablet, By Mouth, Daily, # 90 tablet, Refills 1, Tot. Refills 1, Maintenance, 08/11/19 15:07:00 EDT, [id number], 152.4, cm, 07/30/19 8:01:00 EDT, Height Start Date: 08/11/19 Stop Date: 02/07/20 Status: Ordered ZyrTEC 10 mg oral tablet [...] herpes simple x infection(Confirmed) Active Sinusitis(Confirmed) Active 37071 nl, repeat 2020 Social History Social History Type Response Smoking Status Former smoker; Other : Quit smoking age 35; entered on: 05/03/16 Sex
--- OUTSIDE RECORDS SUMMARY | 2023-06-02 10:59 | XMS_ITS | Continuity of Care Document ---
Author Name Unknown Organization [facility] Address [address] [place] [address]- Care Team Providers Care Decoration Checker Name Role Phone Brock Culver MD Primary Care Physician Encounter [facility] Date(s): 01/22/23 - 01/29/23 [facility] Adult [address] [place] [address]- Encounter Diagnosis Viral illness(Discharge Diagnosis) - 01/22/23 Attending Physician: Yulissa Pal Referring Physician: Brock Culver MD Allergies, Adverse Reactions, Alerts No Known Allergies Immunizations Given and Recorded Vaccine Date Status Refusal Reason influenza virus vaccine, inactivated 01/13/23 Jay rded [...] virus vaccine, inactivated 1, 2 02/27/13 Recorded [id number] bivalent booster vax 01/02/22 Recorded SARS-CoV-2 (COVID-19) [...] 03/12/07 Give n 1Location History: [facility] 2Result Comment: [03/05/2013] FLUVIRIN LOT # [id number] EXP 05/31/13 3Location History: center pharmacy [facility] Medications escitalopram 10 mg oral tablet 1 tablet, By Mouth, Daily, # 90 tablet, 3 Refills, Maintenance, 09/05/22 14:05:00 EDT, [facility] #[id number], 152.4, cm, 09/05/22 12:54:00 EDT, Height Start Date: 09/05/22 Status: Ordered Flonase 50 mcg/inh nasal spray 2 sprays, Nares, Both, Daily in AM, # 16 Gm, 11 Refills, Maintenance, 11/30/20 14:56:00 EDT, [place],[facility] #[id number], Partial fill upon patient request if the [...] crush, # 10 tablet, 0 Refills, Maintenance, 01/22/23 8:21:00 EST, ER Tablet, [facility] #04... Start Date: 01/22/23 Status: Ordered ProAir HFA 90 mcg/inh inhalation aerosol with adapter 2, puffs, Inhalation, Every 6 hours, PRN, # 8.5 Gm, Refills 0, Tot. Refills 0, Maintenance, 09/05/22 14:04:00 EDT, Aerosol, Route to Pharmacy Electronically, [id number], [facility] #[id number], 152.4, cm, 09/05/22 12:54:... Start Date: 09/05/22 [...] 3 Refills, Maintenance, 04/09/21 14:24:00 EST, Tablet, [facility] #[id number], Partial fill upon patient request if the [...] Recurrent oral herpes simplex infection Confirmed Active 02572; repeat 2030 30498 nl, repeat 2019 Diagnosis Diagnosis Type Effective Dates Health Status Cl inical Service Informant Viral illness Discharge Diagnosis 01/22/23 Social History Social History Type Response Smoking Status Former smoker; Other : Quit smoking age 35; entered on: 05/03/16 Sex Patient Care team information Care Team Personnel Name: Abiola LAM, Brock Junior Position: [facility] Physician - Primary Care Member Role: PCP Address: Address: [address] [place] [address]- Care Team Related Persons Name: SAMUEL ROY Address: [address] [place] [address] Name: NAINA MCFARLANE Address: [address] [place] [address]
--- OUTSIDE RECORDS SUMMARY | 2023-06-02 10:59 | XMS_ITS | Continuity of Care Document ---
Author Name Unknown Organization [facility] Address [address] [place] [address]- Care Team Providers Care Coal Sample Tester Name Role Phone Abiola LAM, Brock Junior Primary Care Physician [facility]s): 10/30/22 - 11/29/22 [facility] Adult [address] [place] [address]- Attending Physician: Admtr, Ar8 Allergies, Adverse Reactions, [...] Pertussis (oldterm) 03/12/07 Give n 1Location History: [facility] 2Result Comment: [03/05/2013] FLUVIRIN LOT # [id number] EXP 05/31/13 3Location History: center pharmacy [facility] Medications amoxicillin 875 mg oral tablet 1 tablet = 875 mg, By Mouth, 2 times a day, for 10 days, # 20 tablet, 0 Refills, Acute 12/08/22 11:11:00 EDT, 11/28/22 11:11:00 EDT, Tablet, [facility] #[id number], Partial fill upon patient request if the prescription is for a schedule II opioid... Start Date: 11/28/22 Stop Date: 12/08/22 Status: Ordered doxycycline hyclate 100 mg oral capsule 1 capsule = 100 mg, By Mouth, 2 times a day, # 20 capsule, 0 Refills, Maintenance, 10/30/22 15:03:00 EDT, Capsule, [facility] #[id number], Partial fill upon patient request if the prescription is for a schedule II opioid drug., 152.4, cm, ... Start Date: 10/30/22 Status: Ordered escitalopram 10 mg oral tablet 1 tablet, By Mouth, Daily, # 90 tablet, 3 Refills, Maintenance, 09/05/22 14:05:00 EDT, [facility] #[id number], 152.4, cm, 09/05/22 12:54:00 EDT, Height Start Date: 09/05/22 Status: Ordered Flonase 50 mcg/inh nasal spray 2 sprays, Nares, Both, Daily in AM, # 16 Gm, 11 Refills, Maintenance, 11/30/20 14:56:00 EDT, [place],[facility] #[id number], Partial fill upon patient request if the prescription is for a schedule II opioid drug., 2 sprays Nares, Both Daily in AM,... Start Date: 11/30/20 Status: Ordered predniSONE 20 mg oral tablet See Instructions, 2 tablets daily for 5 days then 1 tablet daily for 5 days, # 15 tablet, 0 Refills, Maintenance, 10/30/22 15:03:00 EDT, Tablet, [facility] #[id number], Partial fill upon patientrequest if the prescription is for a schedule II op... Start Date: 10/30/22 Status: Ordered ProAir HFA 90 mcg/inh inhalation aerosol with adapter 2, puffs, Inhalation, Every 6 hours, PRN, # 8.5 Gm, Refills 0, Tot. Refills 0, Maintenance, 09/05/22 14:04:00 EDT, Aerosol, Route to Pharmacy Electronically, [id number], [facility] #[id number], 152.4, cm, 09/05/22 12:54:... Start Date: 09/05/22 [...] 3 Refills, Maintenance, 04/09/21 14:24:00 EST, Tablet, [facility] #47229, Partial fill upon patient request if the [...] simplex infection Confirmed Active Sinusitis Confirmed Active 27268; repeat 203010 nl, repeat 2019 Procedures Procedure [...] Event Display: Radiology Results Scanned Authored Date: Patient Care team information Care Team Personnel Name: Abiola LAM, Brock Junior Position: S Physician - Primary Care Member Role: PCP Address: Address: [address] [place] [address]- Care Team Related Persons Name: SAMUEL ROY Address: [address] [place] [address] Name: NAINA MCFARLANE Address: [address] [place] [address]
--- OUTSIDE RECORDS SUMMARY | 2023-06-02 10:59 | XMS_ITS | Continuity of Care Document ---
Author Name Unknown Organization [facility] [place] Address [address] [place] [address]- Care Team Providers Care Jewelry Mechanic Name Role Phone Brock Culver MD Primary Care Physician [phone] [facility] 09/27/19 - 10/27/19 [facility] [place] Adult [address] [place] [address]- [facility] Allergies, Adverse Reactions, Alerts Substance Reaction Severity [...] Give n 1Location History: [facility] 2Result Comment: [03/05/2013] FLUVIRIN LOT # [id number] EXP 05/31/13 3Result Comment: PT REFUSED 4Admin Note: [facility] [place] 5Location History: center pharmacy [facility] 6Result Comment: DID NOT GET Medications Activella oral tablet 1 tablet, By Mouth, Daily, # 28 tablet, 3 Refills Start Date: 11/03/08 Status: Ordered Azithromycin 5 Day Dose Pack 250 mg oral tablet 1 pack/packet, By Mouth, Once, # 6 tablet, 0 Refills, Soft Stop, 07/30/19 8:25:00 EDT, Tablet, [facility] #[id number], 152.4, cm, 07/30/19 8:01:00 EDT, Height Start Date: 07/30/19 Status: Ordered Diflucan 150 mg oral tablet 1 tablet = 150 mg, By Mouth, Once, # 1 tablet, 0 Refills, Soft Stop, 06/25/19 14:21:00 EDT, [place],[facility] #42519, 152.4, cm, 05/13/19 7:38:00 EDT, Height Start Date: 06/25/19 Status: Ordered escitalopram 10 mg oral tablet 1 tablet = 10 mg, By Mouth, Daily, # 90 tablet, 4 Refills, Maintenance, 05/06/19 13:44:00 EST, Tablet, [facility] #32582, 152.4, cm, 03/18/19 15:27:00 EST, Height Start Date: 05/06/19 Status: Ordered Nystop 947245 u/gm powder See Instructions, # 15 Gm, APPLY THIN LAYER TO THE AFFECTED AREA TWICE DAILY, [facility] #[id number] Start Date: 10/19/18 Status: Ordered predniSONE 20 mg oral tablet See Instructions, 2 tablets daily for 5 days then 1 tablet daily for 5 days, # 15 tablet, 0 Refills, Maintenance, 07/30/19 8:25:00 EDT, Tablet, [facility] #[id number], 152.4, cm, 07/30/19 8:01:00 EDT, Height Start Date: 07/30/19 Status: Ordered Singulair 10 mg oral tablet 10 mg, 1, tablet, By Mouth, Daily, # 90 tablet, Refills 1, Tot. Refills 1, Maintenance, 08/11/19 15:07:00 EDT, Route to Pharmacy Electronically, [facility] #[id number], 152.4, cm, 07/30/19 8:01:00 EDT, Height Start [...] herpes simple x infection(Confirmed) Active Sinusitis(Confirmed) Active 46290 nl, repeat 2019 Social History Social History Type Response Smoking Status Former smoker; Other : Quit smoking age 35; entered on: 05/03/16 Sex
--- OUTSIDE RECORDS SUMMARY | 2023-06-02 10:59 | XMS_ITS | Continuity of Care Document ---
Author Name Unknown Organization [facility] Address [address] [place] [address]- Care Team Providers Care Silk Screen Printer Helper Name Role Phone Abiola LAM, Brock Junior Primary Care Physician [facility]s): 03/16/20 - 04/15/20 [facility] Adult [address] [place] [address]- Allergies, Adverse Reactions, Alerts Substance Reaction Severity [...] DID NOT GET 2Location History: [facility] 3Result Comment: [03/05/2013] FLUVIRIN LOT # [id number] EXP 05/31/13 4Result Comment: PT REFUSED 5Admin Note: [facility] 6Location History: [facility] pharmacy [facility] Medications escitalopram 10 mg oral tablet 1 tablet = 10 mg, By Mouth, Daily, # 90 tablet, 4 Refills, Maintenance, 05/06/19 13:44:00 EST, Tablet, [facility] #[id number], 152.4, cm, 03/18/19 15:27:00 EST, Height Start Date: 05/06/19 Status: Ordered Singulair 10 mg oral tablet 10 mg, 1, tablet, By Mouth, Daily, # 90 tablet, Refills 1, Tot. Refills 1, Maintenance, 02/07/20 15:07:00 EST, Route to Pharmacy Electronically, [facility] #[id number], 152.4, cm, 01/10/20 11:58:00 EST, Height Start [...] herpes simple x infection(Confirmed) Active Sinusitis(Confirmed) Active 85579 nl, repeat 2019 Social History Social History Type Response Smoking Status Former smoker; Other : Quit smoking age 35; entered on: 05/03/16 Sex
--- OUTSIDE RECORDS SUMMARY | 2023-06-02 10:59 | XMS_ITS | Continuity of Care Document ---
Author Name Unknown Organization [facility] Address [address] [place] [address]- Care Team Providers Care Manager Therapy Name Role Phone Brock Culver MD Primary Care Physician [phone] [facility] 11/30/20 - 12/30/20 [facility] Adult [address] [place] [address]- Attending Physician: Admtr, Ar8 Allergies, Adverse Reactions, [...] [place] 3Result Comment: [03/05/2013] FLUVIRIN LOT # [id number] EXP 05/31/13 4Result Comment: PT REFUSED 5Admin Note: [facility] 6Location History: center pharmacy [facility] Medications Azithromycin 5 Day Dose Pack 250 mg oral tablet 1 pack/packet, By Mouth, Once, as directed on package labeling, # 6 tablet, 0 Refills, Soft Stop, 12/18/20 16:35:00 EDT, Tablet, [facility] #80741, Partial fill upon patient request if the prescription is for a schedule II opioid drug., 152.... Start Date: 12/18/20 Status: Ordered escitalopram 10 mg oral tablet 1 tablet = 10 mg, By Mouth, Daily, # 30 tablet, 5 Refills, Maintenance, 10/30/20 8:13:00 EDT, Tablet, [facility] #80759, 152.4, cm, 10/13/20 7:01:00 EDT, Height Start Date: 10/30/20 Status: Ordered Flonase 50 mcg/inh nasal spray 2 sprays, Nares, Both, Daily in AM, # 16 Gm, 11 Refills, Maintenance, 11/30/20 14:56:00 EDT, [place],[facility] #18136, Partial fill upon patient request if the prescription is for a schedule II opioid drug., 2 sprays Nares, Both Daily in AM,... Start Date: 11/30/20 Status: Ordered predniSONE 20 mg oral tablet See Instructions, 2 tablets daily for 5 days and then 1 tablet daily for 5 days, # 15 tablet, 0 Refills, Maintenance, 11/30/20 14:58:00 EDT, [facility] #66701, Partial fill upon patient request if the [...] herpes simple x infection(Confirmed) Active Sinusitis(Confirmed) Active 29772 nl, repeat 2020 Procedures Procedure Date Related Diagnosis Body Site Status Colonoscopy 1 11/07/20 Completed 1repeat 2030 Social History Social History Type Response Smoking Status Former smoker; Other : Quit smoking age 35; entered on: 05/03/16 Sex
--- OUTSIDE RECORDS SUMMARY | 2023-06-02 10:59 | XMS_ITS | Continuity of Care Document ---
Author Name Unknown Organization [facility] [place] Address [address] [place] [address]- Care Team Providers Care Social Studies Teacher Name Role Phone Brock Culver MD Primary Care Physician [facility]s): 05/18/21 - 06/17/21 [facility] [place] [address] [place] [address]- Attending Physician: Admtr, Ar8 Allergies, Adverse Reactions, [...] (oldterm) 03/12/07 Give n 1[facility] 2Result Comment: [03/05/2013] FLUVIRIN LOT # [id number] EXP 05/31/13 3Result Comment: DID NOT GET 4Result Comment: PT REFUSED 5Admin Note: [facility] 6Location History: [facility] pharmacy [facility] Medications escitalopram 10 mg oral tablet 1 tablet = 10 mg, By Mouth, Daily, # 30 tablet, 5 Refills, Maintenance, 10/30/20 8:13:00 EDT, Tablet, [facility] #[id number], 152.4, cm, 10/13/20 7:01:00 EDT, Height Start Date: 10/30/20 Status: Ordered Flonase 50 mcg/inh nasal spray 2 sprays, Nares, Both, Daily in AM, # 16 Gm, 11 Refills, Maintenance, 11/30/20 14:56:00 EDT, [place] #79959, Partial fill upon patient request if the prescription is for a schedule II opioid drug., 2 sprays Nares, Both Daily in AM,... Start Date: 11/30/20 Status: Ordered ZyrTEC 10 mg oral tablet 1 tablet = 10 mg, By Mouth, Daily, # 90 tablet, 3 Refills, Maintenance, 04/09/21 14:24:00 EST, Tablet, [facility] #24057, Partial fill upon patient request if the [...] herpes simple x infection(Confirmed) Active Sinusitis(Confirmed) Active 17292; repeat 2030 nl, repeat 2019 Procedures Procedure Date Related Diagnosis Body Site Status Colonoscopy 1 11/07/20 Completed 1repeat 2030 Social History Social History Type Response Smoking Status Former smoker; Other : Quit smoking age 35; entered on: 05/03/16 Sex
--- OUTSIDE RECORDS SUMMARY | 2023-06-02 10:59 | XMS_ITS | Continuity of Care Document ---
Author Name Unknown Organization [facility] Address [address] [place] [address]- Care Team Providers Care Business Services Vice President Name Role Phone Brock Culver MD Primary Care Physician [phone] [facility] 06[facility]17[facility]19 - 06/24/19 [facility] Adult [address] [place] [address]- [facility] Attending Physician: Brock Culver MD Allergies, Adverse [...] n 1Location History: [facility] ROSEN [facility] 2Result Comment: [03/05/2013] FLUVIRIN LOT # [id number] EXP 05/31/13 3Result Comment: PT REFUSED 4Admin Note: [facility] 5Location History: [facility] pharmacy [facility] 6Result Comment: DID NOT GET Medications Activella oral tablet 1 tablet, By Mouth, Daily, # 28 tablet, 3 Refills Start Date: 11/03/08 Status: Ordered escitalopram 10 mg oral tablet 1 tablet = 10 mg, By Mouth, Daily, # 90 tablet, 4 Refills, Maintenance, 05/06/19 13:44:00 EST, Tablet, [facility] #51320, 152.4, cm, 03/18/19 15:27:00 EST, Height Start Date: 05/06/19 Status: Ordered Nystop 538919 u/gm powder See Instructions, # 15 Gm, APPLY THIN LAYER TO THE AFFECTED AREA TWICE DAILY, [facility] #76765 Start Date: 10/19/18 Status: Ordered Singulair 10 mg oral tablet 10 mg, 1, tablet, By Mouth, Daily, # 90 tablet, Refills 3, Tot. Refills 3, Maintenance, 10/02/18 8:55:03 EDT, Route to Pharmacy Electronically, [id number], [facility] #[id number] Start Date: 10/02/18 Stop Date: 09/27/19 Status: [...] herpes simple x infection(Confirmed) Active Sinusitis(Confirmed) Active 36860 nl, repeat 2019 Social History Social History Type Response Smoking Status Former smoker; Other : Quit smoking age 35; entered on: 05/03/16 Sex
--- OUTSIDE RECORDS SUMMARY | 2023-06-02 10:59 | XMS_ITS | Continuity of Care Document ---
Author Name Unknown Organization [facility] Address [address] [place] [address]- Care Team Providers Care Weigh Box Tender Name Role Phone Brock Culver MD Primary Care Physician Encounter [facility] Date(s): 02/10/23 - 02/17/23 [facility] Adult [address] [place] [address]- Encounter Diagnosis Acute bronchitis(Discharge Diagnosis) - 02/10/23 Attending Physician: Brock Culver MD Allergies, Adverse Reactions, Alerts No Known Allergies Immunizations Given and Recorded Vaccine Date Status Refusal Reason SARS-CoV-2(COVID-19)mRNA-LNP vac([id number]) 02/04/23 Recorded influenza virus vaccine, inactivated 01/13/23 [...] virus vaccine, inactivated 1, 2 02/27/13 Recorded [id number] bivalent booster vax 01/02/22 Recorded SARS-CoV-2 (COVID-19) [...] 03/12/07 Give n 1Location History: [facility] 2Result Comment: [03/05/2013] FLUVIRIN LOT # [id number] EXP 05/31/13 3Location History: [facility] Medications escitalopram 10 mg oral tablet 1 tablet, By Mouth, Daily, # 90 tablet, 3 Refills, Maintenance, 09/05/22 14:05:00 EDT, [facility] #[id number], 152.4, cm, 09/05/22 12:54:00 EDT, Height Start Date: 09/05/22 Status: Ordered fluticasone 50 mcg/inh nasal spray 2 sprays = 100 mcg, Nares, Both, Daily in AM, # 16 Gm, 11 Refills, Maintenance, 02/10/23 14:27:00 EST, [place], [facility] #[id number], Partial fill upon patient request if the prescription is fora schedule II opioid drug., 2 sprays Nares, Both Da... Start Date: 02/10/23 Status: Ordered levoFLOXacin 500 mg oral tablet 1 tablet = 500 mg, By Mouth, Every 24 hours, for 10 days, # 10 tablet, 0 Refills, Acute 02/20/23 14:21:00 EST, 02/10/23 14:21:00 EST, Tablet, [facility] #[id number], Partial fill upon patient request if the prescription is for a schedule II opioi... Start Date: 02/10/23 Stop Date: 02/20/23 Status: Ordered metroNIDAZOLE 250 mg oral tablet 1 tablet = 250 mg, By Mouth, 3 times a day, for 10 days, # 30 tablet, 0 Refills, Acute 02/20/23 14:21:00 EST, 02/10/23 14:21:00 EST, Table[place], [facility] #[id number], Partial fill upon patient request if the prescription is for a schedule II opioid... Start Date: 02/10/23 Stop Date: 02/20/23 Status: Ordered predniSONE 20 mg oral tablet 2 tablet = 40 mg, By Mouth, Daily, PRN severe cough, # 20 tablet, 0 Refills, Maintenance, 02/10/23 14:26:00 EST, Tablet, [facility] #[id number], Partial fill upon patient request if the [...] patch, 0 Refills, Maintenance, 02/10/23 14:23:00 EST, [facility] #[id number], Partial fill upon patient request if the prescription is for a schedule II opioid drug., 1 patch Topically Every 72 hours, 152.4... Start Date: 02/10/23 Status: Ordered ZyrTEC 10 mg oral tablet 1 tablet = 10 mg, By Mouth, Daily, # 90 tablet, 3 Refills, Maintenance, 04/09/21 14:24:00 EST, Tablet, [facility] #[id number], Partial fill upon patient request if the [...] Recurrent oral herpes simplex infection Confirmed Active 87908; repeat 2031 31011 nl, repeat 2019 Diagnosis Diagnosis Type Effective Dates Health Status Clinical Service Informant Acute bronchitis Discharge Diagnosis 02/10/23 Non-Specified Vital Signs Most recent to oldest [Reference Range]: 1 Height 152.40 cm (02/10/23 1:59 PM) Weight 69.3 kg (02/10/23 1:59 PM) Oxygen Saturation [94-100 %] 98 % (02/10/23 1:59 PM) Pulse Rate [55-90 bpm] 92 bpm *H* (02/10/23 1:59 PM) Body Mass Index [18.5-24.99 kg/m2] 29.84 kg/m2 *H* (02/10/23 1:59 PM) Blood Pressure [90-138/55-84 mm Hg] 126/ 80mm Hg (02/10/23 1:59 PM) Temperature [96.8-100.4 DegF] 98.0 DegF (02/10/23 1:59 PM) Mode of Delivery (Oxygen) Room air (02/10/23 1:59 PM) Blood pressure sites Arm, left (02/10/23 1:59 PM) Temperature Route Oral (02/10/23 1:59 PM) Weight Obtained Via Standing scale (02/10/23 1:59 PM) Social History Social History Type Response Smoking Status Former smoker; Other : Quit smoking age 35; entered on: 05/03/16 Sex Patient Care team information Care Team Personnel Name: Abiola LAM, Brock Junior Position: [facility] Physician - Primary Care Member Role: PCP Address: Address: [address] [place] [address]- Care Team Related Persons Name: SAMUEL ROY Address: home [address] [place] [address] Name: NAINA MCFARLANE Address: home [address] [place] [address]
--- OUTSIDE RECORDS SUMMARY | 2023-06-02 10:59 | XMS_ITS | Continuity of Care Document ---
Author Name Unknown Organization [facility] Address [address] [place] [address]- Care Team Providers Care Gi Tech Name Role Phone Brock Culver MD Primary Care Physician [facility]counter [facility] Date(s): 09/05/22 - 10/05/22 [facility] Adult [address] [place] [address]- Allergies, Adverse Reactions, Alerts No Known Allergies [...] 03/12/07 Give n 1Location History: [facility] 2Result Comment: [03/05/2013] FLUVIRIN LOT # [id number] EXP 05/31/13 3Result Comment: DID NOT GET 4Result Comment: PT REFUSED 5Admin Note: [facility] 6Location History: [facility] Medications amoxicillin 875 mg oral tablet 1 tablet = 875 mg, By Mouth, 2 times a day, # 14 tablet, 0 Refills, Maintenance, 11/02/21 11:39:00 EDT, Tablet, [facility] #[id number], Partial fill upon patient request if the prescription is for a schedule II opioid drug., 152.4, cm, 11/02/21 1... Start Date: 11/02/21 Stop Date: 11/09/21 Status: Ordered escitalopram 10 mg oral tablet 1 tablet, By Mouth, Daily, # 90 tablet, 3 Refills, Maintenance, 09/05/22 14:05:00 EDT, [facility] #[id number], 152.4, cm, 09/05/22 12:54:00 EDT, Height Start Date: 09/05/22 Status: Ordered Flonase 50 mcg/inh nasal spray 2 sprays, Nares, Both, Daily in AM, # 16 Gm, 11 Refills, Maintenance, 11/30/20 14:56:00 EDT, [place],[facility] #[id number], Partial fill upon patient request if the [...] Refills, Maintenance, 01/22/22 15:55:00 EST, ER Tablet, [facility] #0... Start Date: 01/22/22 Status: Ordered predniSONE 10 mg oral tablet 1 tablet = 10 mg, By Mouth, 2 times a day, # 10 tablet, 0 Refills, Maintenance, 06/07/22 16:01:00 EDT, Table[place], [facility] #[id number], Partial fill upon patient request if the prescription is for a schedule II opioid drug., 152.4, cm, 01/22/22 15... Start Date: 06/07/22 Stop Date: 06/12/22 Status: Ordered predniSONE 20 mg oral tablet 1 tablet = 20 mg, By Mouth, Daily, # 7 tablet, 2 Refills, Maintenance, 09/14/21 10:40:00 EDT, Tablet, [facility] #[id number], Partial fill upon patient request if the prescription is for a schedule II opioid drug., 152.4, cm, 09/14/21 10:23:00 ED... Start Date: 09/14/21 Stop Date: 10/05/21 Status: Ordered ProAir HFA 90 mcg/inh inhalation aerosol with adapter 2, puffs, Inhalation, Every 6 hours, PRN, # 8.5 Gm, Refills 0, Tot. Refills 0, Maintenance, 09/05/22 14:04:00 EDT, Aerosol, Route to Pharmacy Electronically, [id number], [facility] #[id number], 152.4, cm, 09/05/22 12:54:... Start Date: 09/05/22 [...] 3 Refills, Maintenance, 04/09/21 14:24:00 EST, Tablet, [facility] #[id number], Partial fill upon patient request if the [...] simplex infection Confirmed Active Sinusitis Confirmed Active 09957; repeat 2030 97811 nl, repeat 2019 Social History Social History Type Response Smoking Status Former smoker; Other : Quit smoking age 35; entered on: 05/03/16 Sex Patient Care team information Care Team Personnel Name: Abiola LAM, Brock Junior Position: [facility] Physician - Primary Care Member Role: PCP Address: Address: [address] [place] [address]- Care Team Related Persons Name: SAMUEL ROY Address: home [address] [place] [address] Name: NAINA MCFARLANE Address: home [address] [place] [address]
--- OUTSIDE RECORDS SUMMARY | 2023-06-02 10:59 | XMS_ITS | Continuity of Care Document ---
Author Name Unknown Organization [facility] Adult Address [address] [place] [address]- Care Team Providers Care Human Relations Professor Name Role Phone Abiola LAM, Brock Junior Primary Care Physician [facility]counter [facility] Date(s): 05/25/20 - 06/24/20 [facility] Adult [address] [place] [address]- Allergies, Adverse Reactions, Alerts Substance Reaction Severity [...] [place] 3Result Comment: [03/05/2013] FLUVIRIN LOT # [id number] EXP 05/31/13 4Result Comment: PT REFUSED 5Admin Note: [facility] 6Location History: [facility] Medications escitalopram 10 mg oral tablet 1 tablet = 10 mg, By Mouth, Daily, FURTHER REFILLS REQUIRE AN OFFICE VISIT, # 30 tablet, 0 Refills,Maintenance, 06/23/20 17:04:00 EDT, Tablet, [facility] #[id number], 152.4, cm, 05/23/20 16:13:00 EDT, Height Start Date: 06/23/20 Status: Ordered Singulair 10 mg oral tablet 10 mg, 1, tablet, By Mouth, Daily, # 90 tablet, Refills 1, Tot. Refills 1, Maintenance, 02/07/20 15:07:00 EST, Route to Pharmacy Electronically, [facility] #[id number], 152.4, cm, 01/10/20 11:58:00 EST, Height Start [...] herpes simple x infection(Confirmed) Active Sinusitis(Confirmed) Active 15997 nl, repeat 2019 Social History Social History Type Response Smoking Status Former smoker; Other : Quit smoking age 35; entered on: 05/03/16 Sex
--- OUTSIDE RECORDS SUMMARY | 2023-06-02 10:59 | XMS_ITS | Continuity of Care Document ---
Author Name Unknown Organization [facility] ter Address [address] [place] [address]- Care Team Providers Care Child Care Education Coordinator Name Role Phone Brock Culver MD Primary Care Physician [phone] Encounter [facility] Date(s): 03/18/19 - 03/25/[address] [address]- [facility] Attending Physician: Not on Staff, Attending MD [...] [place] 2Result Comment: [03/05/2013] FLUVIRIN LOT # [id number] EXP 05/31/13 3Result Comment: PT REFUSED 4Admin Note: [facility] 5Location History: [facility] 6Result Comment: DID NOT GET Medications Activella oral tablet 1 tablet, By Mouth, Daily, # 28 tablet, 3 Refills Start Date: 11/03/08 Status: Ordered escitalopram 10 mg oral tablet 1 tablet = 10 mg, By Mouth, Daily, # 90 tablet, 3 Refills, Maintenance, 09/16/17 10:11:27 EDT, Tablet Start Date: 09/16/17 Status: Ordered Nystop 007881 u/gm powder See Instructions, # 15 Gm, APPLY THIN LAYER TO THE AFFECTED AREA TWICE DAILY, [facility] #[id number] Start Date: 10/19/18 Status: Ordered predniSONE 20 mg oral tablet See Instructions, 2 tablets daily for 5 days then 1 tablet daily for 5 days, # 15 tablet, 0 Refills, Maintenance, 03/18/19 15:59:00 EST, Tablet, [facility] #[id number], 152.4, cm, 03/18/19 15:27:00 EST, Height Start Date: 03/18/19 Status: Ordered Singulair 10 mg oral tablet 10 mg, 1, tablet, By Mouth, Daily, # 90 tablet, Refills 3, Tot. Refills 3, Maintenance, 10/02/18 8:55:03 EDT, Route to Pharmacy Electronically, [id number], [facility] #[id number] Start Date: 10/02/18 Stop Date: 09/27/19 Status: [...] herpes simple x infection(Confirmed) Active Sinusitis(Confirmed) Active 60307 nl, repeat 2019 Social History Social History Type Response Smoking Status Former smoker; Other : Quit smoking age 35; entered on: 05/03/16 Sex
--- OUTSIDE RECORDS SUMMARY | 2023-06-02 10:59 | XMS_ITS | Continuity of Care Document ---
Author Name Unknown Organization [facility] Address [address] [place] [address]- Care Team Providers Care Academic Affairs Coordinator Name Role Phone Brock Culver MD Primary Care Physician [phone] Encounter [facility] Date(s): 06/17/19 - 11/18/19 [facility] [place] Adult [address] [place] [address]- [facility] Attending Physician: Brock Culver MD Allergies, [...] 03/12/07 Give n 1Location History: [facility] 2Result Comment: [03/05/2013] FLUVIRIN LOT # [id number] EXP 05/31/13 3Result Comment: PT REFUSED 4Admin Note: [facility] 5Location History: [facility] 6Result Comment: DID NOT GET Medications Activella oral tablet 1 tablet, By Mouth, Daily, # 28 tablet, 3 Refills Start Date: 11/03/08 Status: Ordered Azithromycin 3 Day Dose Pack 500 mg oral tablet 2 tablet = 1,000 mg, By Mouth, Once, # 2 tablet, 0 Refills, Soft Stop, 11/18/19 8:20:00 EDT, Tablet, [facility] #[id number], 152.4, cm, 11/16/19 10:20:00 EDT, Height Start Date: 11/18/19 Status: Ordered Azithromycin 5 Day Dose Pack 250 mg oral tablet 1 pack/packet, By Mouth, Once, # 6 tablet, 0 Refills, Soft Stop, 11/18/19 8:20:00 EDT, Tablet, [facility] #[id number], 152.4, cm, 11/16/19 10:20:00 EDT, Height Start Date: 11/18/19 Status: Ordered escitalopram 10 mg oral tablet 1 tablet = 10 mg, By Mouth, Daily, # 90 tablet, 4 Refills, Maintenance, 05/06/19 13:44:00 EST, Tablet, [facility] #[id number], 152.4, cm, 03/18/19 15:27:00 EST, Height Start Date: 05/06/19 Status: Ordered predniSONE 20 mg oral tablet 2 tablet = 40 mg, By Mouth, Daily, # 14 tablet, 0 Refills, Maintenance, 11/16/19 15:48:00 EDT, Tablet, [facility] #[id number], 152.4, cm, 11/16/19 10:20:00 EDT, Height Start Date: 11/16/19 Status: Ordered predniSONE 20 mg oral tablet See Instructions, 2 tablets daily for 5 days then 1 tablet daily for 5 days, # 15 tablet, 0 Refills, Maintenance, 07/30/19 8:25:00 EDT, Tablet, [facility] #[id number], 152.4, cm, 07/30/19 8:01:00 EDT, Height Start Date: 07/30/19 Status: Ordered Singulair 10 mg oral tablet 10 mg, 1, tablet, By Mouth, Daily, # 90 tablet, Refills 1, Tot. Refills 1, Maintenance, 08/11/19 15:07:00 EDT, Route to Pharmacy Electronically, [facility] #[id number], 152.4, cm, 07/30/19 8:01:00 EDT, Height Start [...] herpes simple x infection(Confirmed) Active Sinusitis(Confirmed) Active 13732 nl, repeat 2020 Social History Social History Type Response Smoking Status Former smoker; Other : Quit smoking age 35; entered on: 05/03/16 Sex
--- OUTSIDE RECORDS SUMMARY | 2023-06-02 10:59 | XMS_ITS | Continuity of Care Document ---
Author Name Unknown Organization [facility] Address [address] [place] [address]- Care Team Providers Care Erosion Control Coordinator Name Role Phone Brock Culver MD Primary Care Physician [facility] Date(s): 02/06/23 - 03/08/23 [facility] Adult [address] [place] [address]- Allergies, Adverse Reactions, Alerts No Known Allergies Immunizations Given and Recorded Vaccine Date Status Refusal Reason SARS-CoV-2(COVID-19)mRNA-LNP vac([id number]) 02/04/23 Recorded influenza virus vaccine, inactivated 01/13/23 [...] virus vaccine, inactivated 1, 2 02/27/13 Recorded [id number] bivalent booster vax 01/02/22 Recorded SARS-CoV-2 (COVID-19) [...] HOSPITAL 2Result Comment: [03/05/2013] FLUVIRIN LOT # [id number] EXP 05/31/13 3Location History: [facility] Medications escitalopram 10 mg oral tablet 1 tablet, By Mouth, Daily, # 90 tablet, 3 Refills, Maintenance, 09/05/22 14:05:00 EDT, [facility] #[id number], 152.4, cm, 09/05/22 12:54:00 EDT, Height Start Date: 09/05/22 Status: Ordered fluticasone 50 mcg/inh nasal spray 2 sprays = 100 mcg, Nares, Both, Daily in AM, # 16 Gm, 11 Refills, Maintenance, 02/10/23 14:27:00 EST, [place], [facility] #[id number], Partial fill upon patient request if the prescription is fora schedule II opioid drug., 2 sprays Nares, Both Da... Start Date: 02/10/23 Status: Ordered predniSONE 20 mg oral tablet 2 tablet = 40 mg, By Mouth, Daily, PRN severe cough, # 20 tablet, 0 Refills, Maintenance, 02/10/23 14:26:00 EST, Tablet, [facility] #[id number], Partial fill upon patient request if the [...] patch, 0 Refills, Maintenance, 02/10/23 14:23:00 EST, [facility] #[id number], Partial fill upon patient request if the prescription is for a schedule II opioid drug., 1 patch Topically Every 72 hours, 152.4... Start Date: 02/10/23 Status: Ordered ZyrTEC 10 mg oral tablet 1 tablet = 10 mg, By Mouth, Daily, # 90 tablet, 3 Refills, Maintenance, 04/09/21 14:24:00 EST, Tablet, [facility] #[id number], Partial fill upon patient request if the [...] Recurrent oral herpes simplex infection Confirmed Active 39080; repeat 2031 34020 nl, repeat 2020 Social History Social History Type Response Smoking Status Former smoker; Other : Quit smoking age 35; entered on: 05/03/16 Sex Patient Care team information Care Team Personnel Name: Brock Culver MD Position: S Physician - Primary Care Member Role: PCP Address: Address: [address] [place] [address]- Care Team Related Persons Name: SAMUEL ROY Address: home [address] [place] [address] Name: NAINA MCFARLANE Address: home [address] [place] [address]
--- OUTSIDE RECORDS SUMMARY | 2023-06-02 10:59 | XMS_ITS | Continuity of Care Document ---
Author Name Unknown Organization [facility] Address [address] [place] [address]- Care Team Providers Care Transportation Aid Name Role Phone Brock Culver MD Primary Care Physician [facility]counter [facility] Date(s): 12/08/20 - 01/07/21 [facility] Adult [address] [place] [address]- Allergies, Adverse Reactions, Alerts Substance Reaction Severity [...] DID NOT GET 2Location History: [facility] 3Result Comment: [03/05/2013] FLUVIRIN LOT # [id number] EXP 05/31/13 4Result Comment: PT REFUSED 5Admin Note: [facility] 6Location History: [facility] Medications Azithromycin 5 Day Dose Pack 250 mg oral tablet 1 pack/packet, By Mouth, Once, as directed on package labeling, # 6 tablet, 0 Refills, Soft Stop, 12/18/20 16:35:00 EDT, Tablet, [facility] #[id number], Partial fill upon patient request if the prescription is for a schedule II opioid drug., 152.... Start Date: 12/18/20 Status: Ordered escitalopram 10 mg oral tablet 1 tablet = 10 mg, By Mouth, Daily, # 30 tablet, 5 Refills, Maintenance, 10/30/20 8:13:00 EDT, Tablet, [facility] #[id number], 152.4, cm, 10/13/20 7:01:00 EDT, Height Start Date: 10/30/20 Status: Ordered Flonase 50 mcg/inh nasal spray 2 sprays, Nares, Both, Daily in AM, # 16 Gm, 11 Refills, Maintenance, 11/30/20 14:56:00 EDT, [place] #[id number], Partial fill upon patient request if the prescription is for a schedule II opioid drug., 2 sprays Nares, Both Daily in AM,... Start Date: 11/30/20 Status: Ordered predniSONE 20 mg oral tablet See Instructions, 2 tablets daily for 5 days and then 1 tablet daily for 5 days, # 15 tablet, 0 Refills, Maintenance, 11/30/20 14:58:00 EDT, [facility] #[id number], Partial fill upon patient request if the [...] herpes simple x infection(Confirmed) Active Sinusitis(Confirmed) Active 08703 nl, repeat 2019 Social History Social History Type Response Smoking Status Former smoker; Other : Quit smoking age 35; entered on: 05/03/16 Sex
--- OUTSIDE RECORDS SUMMARY | 2023-06-02 10:59 | XMS_ITS | Continuity of Care Document ---
Author Name Unknown Organization [facility] Address [address] [place] [address]- Care Team Providers Care Scrubbing Machine Operator Name Role Phone Abiola LAM, Brock Junior Primary Care Physician Encounter [facility] Date(s): 03/18/19 - 03/25/19 [facility] Adult [address] [place] [address]- [facility] Encounter Diagnosis Diverticulitis(Discharge Diagnosis) - 03/18/19 Polyarthritis(Discharge Diagnosis) - 03/18/19 Attending Physician: Not on Staff, Attending MD [...] HOSPITAL 2Result Comment: [03/05/2013] FLUVIRIN LOT # [id number] EXP 05/31/13 3Result Comment: PT REFUSED 4Admin Note: [employer] [facility] 5Location History: [facility] 6Result Comment: DID NOT GET Medications Activella oral tablet 1 tablet, By Mouth, Daily, # 28 tablet, 3 Refills Start Date: 11/03/08 Status: Ordered escitalopram 10 mg oral tablet 1 tablet = 10 mg, By Mouth, Daily, # 90 tablet, 3 Refills, Maintenance, 09/16/17 10:11:27 EDT, Tablet Start Date: 09/16/17 Status: Ordered Nystop 772777 u/gm powder See Instructions, # 15 Gm, APPLY THIN LAYER TO THE AFFECTED AREA TWICE DAILY, [facility] #[id number] Start Date: 10/19/18 Status: Ordered predniSONE 20 mg oral tablet See Instructions, 2 tablets daily for 5 days then 1 tablet daily for 5 days, # 15 tablet, 0 Refills, Maintenance, 03/18/19 15:59:00 EST, Tablet, [facility] #[id number], 152.4, cm, 03/18/19 15:27:00 EST, Height Start Date: 03/18/19 Status: Ordered Singulair 10 mg oral tablet 10 mg, 1, tablet, By Mouth, Daily, # 90 tablet, Refills 3, Tot. Refills 3, Maintenance, 10/02/18 8:55:03 EDT, Route to Pharmacy Electronically, [id number], [facility] #[id number] Start Date: 10/02/18 Stop Date: 09/27/19 Status: [...] herpes simple x infection(Confirmed) Active Sinusitis(Confirmed) Active 53921 nl, repeat 2019 Diagnosis Diagnosis Type Effective Dates Health Status inical Service Informant Diverticulitis Discharge Diagnosis 03/18/19 Polyarthritis Discharge Diagnosis 03/18/19 Vital Signs Most recent to oldest [Reference Range]: 1 Height 152.40 cm (03/18/19 3:27 PM) Weight 68.9 kg (03/18/19 3:27 PM) Oxygen Saturation [94-100 %] 98 % (03/18/19 3:27 PM) Pulse Rate [55-90 bpm] 90 bpm (03/18/19 3:27 PM) Body Mass Index [18.5-24.99] 29.67 *H* (03/18/19 3:27 PM) Blood Pressure [90-138/55-84 mm Hg] 120/ 68mm Hg (03/18/19 3:27 PM) Temperature [96.8-100.4 DegF] 97.6 DegF (03/18/19 3:27 PM) Blood pressure sites Arm, left (03/18/19 3:27 PM) Temperature Route Oral (03/18/19 3:27 PM) Social History Social History Type Response Smoking Status Former smoker; Other : Quit smoking age 35; entered on: 05/03/16 Sex
--- OUTSIDE RECORDS SUMMARY | 2023-06-02 10:59 | XMS_ITS | Continuity of Care Document ---
Author Name Unknown Organization [facility] lt Address [address] [place] [address]- Care Team Providers Care Harness Rigger Name Role Phone Brokc Culver MD Primary Care Physician [facility] - 11/23/19 [facility] Adult [address] [place] [address]- [facility] Attending Physician: Eugene Dickey MD Allergies, Adverse [...] 03/12/07 Give n 1Location History: [facility] 2Result Comment: [03/05/2013] FLUVIRIN LOT # [id number] EXP 05/31/13 3Result Comment: PT REFUSED 4Admin Note: [facility] 5Location History: [facility] 6Result Comment: DID NOT GET Medications Activella oral tablet 1 tablet, By Mouth, Daily, # 28 tablet, 3 Refills Start Date: 11/03/08 Status: Ordered Azithromycin 3 Day Dose Pack 500 mg oral tablet 2 tablet = 1,000 mg, By Mouth, Once, # 2 tablet, 0 Refills, Soft Stop, 11/18/19 8:20:00 EDT, Tablet, [facility] #[id number], 152.4, cm, 11/16/19 10:20:00 EDT, Height Start Date: 11/18/19 Status: Ordered Azithromycin 5 Day Dose Pack 250 mg oral tablet 1 pack/packet, By Mouth, Once, # 6 tablet, 0 Refills, Soft Stop, 11/18/19 8:20:00 EDT, Tablet, [facility] #[id number], 152.4, cm, 11/16/19 10:20:00 EDT, Height Start Date: 11/18/19 Status: Ordered escitalopram 10 mg oral tablet 1 tablet = 10 mg, By Mouth, Daily, # 90 tablet, 4 Refills, Maintenance, 05/06/19 13:44:00 EST, Tablet, [facility] #[id number], 152.4, cm, 03/18/19 15:27:00 EST, Height Start Date: 05/06/19 Status: Ordered predniSONE 20 mg oral tablet 2 tablet = 40 mg, By Mouth, Daily, # 14 tablet, 0 Refills, Maintenance, 11/16/19 15:48:00 EDT, Tablet, [facility] #[id number], 152.4, cm, 11/16/19 10:20:00 EDT, Height Start Date: 11/16/19 Status: Ordered predniSONE 20 mg oral tablet See Instructions, 2 tablets daily for 5 days then 1 tablet daily for 5 days, # 15 tablet, 0 Refills, Maintenance, 07/30/19 8:25:00 EDT, Tablet, [facility] #18120, 152.4, cm, 07/30/19 8:01:00 EDT, Height Start Date: 07/30/19 Status: Ordered Singulair 10 mg oral tablet 10 mg, 1, tablet, By Mouth, Daily, # 90 tablet, Refills 1, Tot. Refills 1, Maintenance, 08/11/19 15:07:00 EDT, Route to Pharmacy Electronically, [facility][id number], 152.4, cm, 07/30/19 8:01:00 EDT, Height Start [...] herpes simple x infection(Confirmed) Active Sinusitis(Confirmed) Active 46409 nl, repeat 2019 Vital Signs Most recent to oldest [Reference Range]: 1 Height 152.40 cm (11/16/19 10:20 AM) Social History Social History Type Response Smoking Status Former smoker; Other : Quit smoking age 35; entered on: 05/03/16 Sex
--- OUTSIDE RECORDS SUMMARY | 2023-06-02 11:00 | XMS_ITS | Continuity of Care Document ---
Author Name Unknown Organization [facility] Address [address] [place] [address] [address] [place] [address]- Care Team Providers Care Senior Water/Wastewater Engineer Name Role Phone Brock Culver MD Primary Care Physician [phone] [facility]s): 03/18/19 - 03/28/[address] [place] [address]- [facility] Attending Physician: Admtr, Wilman8 Admitting Physician: Admtr, [...] (oldterm) 03/12/07 Give n [facility] 2Result Comment: [03/05/2013] FLUVIRIN LOT # [id number] EXP 05/31/13 3Result Comment: PT REFUSED 4Admin Note: [facility] 5Location History: [facility] 6Result Comment: DID NOT GET Medications Activella oral tablet 1 tablet, By Mouth, Daily, # 28 tablet, 3 Refills Start Date: 11/03/08 Status: Ordered escitalopram 10 mg oral tablet 1 tablet = 10 mg, By Mouth, Daily, # 90 tablet, 3 Refills, Maintenance, 09/16/17 10:11:27 EDT, Tablet Start Date: 09/16/17 Status: Ordered Nystop 545985 u/gm powder See Instructions, # 15 Gm, APPLY THIN LAYER TO THE AFFECTED AREA TWICE DAILY, [facility] #[id number] Start Date: 10/19/18 Status: Ordered predniSONE 20 mg oral tablet See Instructions, 2 tablets daily for 5 days then 1 tablet daily for 5 days, # 15 tablet, 0 Refills, Maintenance, 03/18/19 15:59:00 EST, Tablet, [facility] #[id number], 152.4, cm, 03/18/19 15:27:00 EST, Height Start Date: 03/18/19 Status: Ordered Singulair 10 mg oral tablet 10 mg, 1, tablet, By Mouth, Daily, # 90 tablet, Refills 3, Tot. Refills 3, Maintenance, 10/02/18 8:55:03 EDT, Route to Pharmacy Electronically, [id number], [facility] #[id number] Start Date: 10/02/18 Stop Date: 09/27/19 Status: [...] herpes simple x infection(Confirmed) Active Sinusitis(Confirmed) Active 37801 nl, repeat 2019 Social History Social History Type Response Smoking Status Former smoker; Other : Quit smoking age 35; entered on: 05/03/16 Sex
--- OUTSIDE RECORDS SUMMARY | 2023-06-02 11:00 | XMS_ITS | Continuity of Care Document ---
Author Name Unknown Organization [facility] Address [address] [place] [address]- Care Team Providers Care Buckle Attacher Name Role Phone Abiola LAM, Brock Junior Primary Care Physician [facility]): 01/09/23 - 02/08/23 [facility] Adult [address] [place] [address]- Allergies, Adverse Reactions, Alerts No Known Allergies [...] virus vaccine, inactivated 1, 2 02/27/13 Recorded [id number] bivalent booster vax 01/02/22 Recorded SARS-CoV-2 (COVID-19) [...] 03/12/07 Give n 1Location History: [facility] 2Result Comment: [03/05/2013] FLUVIRIN LOT # [id number] EXP 05/31/13 3Location History: [facility] Medications escitalopram 10 mg oral tablet 1 tablet, By Mouth, Daily, # 90 tablet, 3 Refills, Maintenance, 09/05/22 14:05:00 EDT, [facility] #[id number], 152.4, cm, 09/05/22 12:54:00 EDT, Height Start Date: 09/05/22 Status: Ordered Flonase 50 mcg/inh nasal spray 2 sprays, Nares, Both, Daily in AM, # 16 Gm, 11 Refills, Maintenance, 11/30/20 14:56:00 EDT, [place] #42504, Partial fill upon patient request if the [...] Refills, Maintenance, 01/22/23 8:21:00 EST, ER Tablet, [facility] #[id number]... Start Date: 01/22/23 Status: Ordered ProAir HFA 90 mcg/inh inhalation aerosol with adapter 2, puffs, Inhalation, Every 6 hours, PRN, # 8.5 Gm, Refills 0, Tot. Refills 0, Maintenance, 09/05/22 14:04:00 EDT, Aerosol, Route to Pharmacy Electronically, [id number], [facility] #[id number], 152.4, cm, 09/05/22 12:54:... Start Date: 09/05/22 [...] 3 Refills, Maintenance, 04/09/21 14:24:00 EST, Tablet, [facility] #00514, Partial fill upon patient request if the [...] Recurrent oral herpes simplex infection Confirmed Active 69943; repeat 2031 25415 nl, repeat 2020 Social History Social History Type Response Smoking Status Former smoker; Other : Quit smoking age 35; entered on: 05/03/16 Sex Patient Care team information Care Team Personnel Name: Abiola LAM, Brock Junior Position: S Physician - Primary Care Member Role: PCP Address: Address: [address] [place] [address]- Care Team Related Persons Name: SAMUEL ROY Address: home [address] [place] [address] Name: NAINA MCFARLANE Address: home [address] [place] [address]
--- OUTSIDE RECORDS SUMMARY | 2023-06-02 11:00 | XMS_ITS | Continuity of Care Document ---
Author Name Unknown Organization [facility] Address [address] [place] [address]- Care Team Providers Care Clammer Name Role Phone Brock Culver MD Primary Care Physician [phone] [facility]s): 02/19/21 - 03/21/21 [facility] Adult [address] [place] [address]- Allergies, Adverse Reactions, Alerts No Known Allergies [...] n 1Location History: [facility] 2Result Comment: [03/05/2013] FLUVIRIN LOT # [id number] EXP 05/31/13 3Result Comment: DID NOT GET 4Result Comment: PT REFUSED 5Admin Note: [facility] 6Location History: [facility] Medications CeleBREX 200 mg oral capsule 1 capsule = 200 mg, By Mouth, Daily, # 90 capsule, 0 Refills, Maintenance, 01/22/21 14:58:00 EST, Capsule, [facility] #[id number], Partial fill upon patient request if the prescription is for a schedule II opioid drug., 152.4, cm, 11/30/20 14:28:... Start Date: 01/22/21 Stop Date: 04/22/21 Status: Ordered Diflucan 150 mg oral tablet 1 tablet = 150 mg, By Mouth, Once, # 1 tablet, 0 Refills, Soft Stop, 01/26/21 13:52:00 EST, [facility] #[id number], 152.4, cm, 11/30/20 14:28:00 EDT, Height Start Date: 01/26/21 Status: Ordered doxycycline hyclate 100 mg oral capsule 1 capsule = 100 mg, By Mouth, 2 times a day, # 20 capsule, 0 Refills, Maintenance, 02/08/21 10:39:00 EST, Capsule, [facility] #92522, Partial fill upon patient request if the prescription is for a schedule II opioid drug., 152.4, cm, ... Start Date: 02/08/21 Status: Ordered escitalopram 10 mg oral tablet 1 tablet = 10 mg, By Mouth, Daily, # 30 tablet, 5 Refills, Maintenance, 10/30/20 8:13:00 EDT, Tablet, [facility] #06236, 152.4, cm, 10/13/20 7:01:00 EDT, Height Start Date: 10/30/20 Status: Ordered Flonase 50 mcg/inh nasal spray 2 sprays, Nares, Both, Daily in AM, # 16 Gm, 11 Refills, Maintenance, 11/30/20 14:56:00 EDT, [place],[facility] #32306, Partial fill upon patient request if the [...] herpes simple x infection(Confirmed) Active Sinusitis(Confirmed) Active 00501 nl, repeat 2019 Social History Social History Type Response Smoking Status Former smoker; Other : Quit smoking age 35; entered on: 05/03/16 Sex
--- OUTSIDE RECORDS SUMMARY | 2023-06-02 11:00 | XMS_ITS | Continuity of Care Document ---
Author Name Unknown Organization [facility] Address [address] [place] [address]- Care Team Providers Care Railroad Wheels And Axle Inspector Name Role Phone Brock Culver MD Primary Care Physician [facility]s): 04/16/23 - 05/16/23 [facility] Adult [address] [place] [address]- Attending Physician: Admtr, Ar8 Allergies, Adverse Reactions, Alerts No Known Allergies Immunizations Given and Recorded Vaccine Date Status Refusal Reason SARS-CoV-2(COVID-19)mRNA-LNP vac([id number]) 02/04/23 Recorded influenza virus vaccine, inactivated 01/13/23 [...] virus vaccine, inactivated 1, 2 02/27/13 Recorded [id number] bivalent booster vax 01/02/22 Recorded SARS-CoV-2 (COVID-19) [...] Give n 1Location History: [facility] 2Result Comment: [03/05/2013] FLUVIRIN LOT # [id number] EXP 05/31/13 3Location History: center pharmacy [facility] Medications azithromycin 250 mg oral tablet See Instructions, Take 2 tablets on day 1 and 1 tablet daily for next 4 days, # 6 tablet, 0 Refills, Maintenance, 04/16/23 10:42:00 EST, Tablet, [facility] #70521, Partial fill upon patientrequest if the prescription is for a schedule II op... Start Date: 04/16/23 Status: Ordered escitalopram 10 mg oral tablet 1 tablet, By Mouth, Daily, # 90 tablet, 3 Refills, Maintenance, 09/05/22 14:05:00 EDT, [facility] #[id number], 152.4, cm, 09/05/22 12:54:00 EDT, Height Start Date: 09/05/22 Status: Ordered fluticasone 50 mcg/inh nasal spray 2 sprays = 100 mcg, Nares, Both, Daily in AM, # 16 Gm, 11 Refills, Maintenance, 02/10/23 14:27:00 EST, [place], [facility] #05231, Partial fill upon patient request if the prescription is fora schedule II opioid drug., 2 sprays Nares, Both Da... Start Date: 02/10/23 Status: Ordered predniSONE 10 mg oral tablet 1 tablet = 10 mg, By Mouth, 2 times a day, # 10 tablet, 0 Refills, Maintenance, 04/16/23 10:22:00 EST, Tablet, [facility] #83812, Partial fill upon patient request if the prescription is for a schedule II opioid drug., 152.4, cm, 04/16/23 10... Start Date: 04/16/23 Status: Ordered predniSONE 20 mg oral tablet 2 tablet = 40 mg, By Mouth, Daily, PRN severe cough, # 20 tablet, 0 Refills, Maintenance, 02/10/23 14:26:00 EST, Tablet, [facility] #[id number], Partial fill upon patient request if the [...] patch, 0 Refills, Maintenance, 02/10/23 14:23:00 EST, [facility] #[id number], Partial fill upon patient request if the prescription is for a schedule II opioid drug., 1 patch Topically Every 72 hours, 152.4... Start Date: 02/10/23 Status: Ordered ZyrTEC 10 mg oral tablet 1 tablet = 10 mg, By Mouth, Daily, # 90 tablet, 3 Refills, Maintenance, 04/09/21 14:24:00 EST, Tablet, [facility] #[id number], Partial fill upon patient request if the [...] Recurrent oral herpes simplex infection Confirmed Active 05207; repeat 2030 80649 nl, repeat 2019 Procedures Procedure Date Related [...] Event Display: Radiology Results Scanned Authored Date: [id number] Patient Care team information Care Team Personnel Name: Abiola LAM, Brock Junior Position: [facility] Physician - Primary Care Member Role: PCP Address: Address: [address] [place] [address]- Care Team Related Persons Name: SAMUEL ROY Address: home [address] [place] [address] Name: NAINA MCFARLANE Address: home [address] [place] [address]
--- OUTSIDE RECORDS SUMMARY | 2023-06-02 11:00 | XMS_ITS | Continuity of Care Document ---
Author Name Unknown Organization [facility] [place] [facility] Address [address] [place] [address]- Care Team Providers Care Larder Cook Name Role Phone Brock Culver MD Primary Care Physician [facility]s): 03/29/21 - 04/28/21 [facility] [place] Adult [address] [place] [address]- Allergies, Adverse Reactions, Alerts No Known Allergies [...] Give n 1Location History: [facility] 2Result Comment: [03/05/2013] FLUVIRIN LOT # [id number] EXP 05/31/13 3Result Comment: DID NOT GET 4Result Comment: PT REFUSED 5Admin Note: [facility] 6Location History: [facility] Medications escitalopram 10 mg oral tablet 1 tablet = 10 mg, By Mouth, Daily, # 30 tablet, 5 Refills, Maintenance, 10/30/20 8:13:00 EDT, Tablet, [email or web address] #[id number], 152.4, cm, 10/13/20 7:01:00 EDT, Height Start Date: 10/30/20 Status: Ordered Flonase 50 mcg/inh nasal spray 2 sprays, Nares, Both, Daily in AM, # 16 Gm, 11 Refills, Maintenance, 11/30/20 14:56:00 EDT, [place],[email or web address] #[id number], Partial fill upon patient request if the prescription is for a schedule II opioid drug., 2 sprays Nares, Both Daily in AM,... Start Date: 11/30/20 Status: Ordered ZyrTEC 10 mg oral tablet 1 tablet = 10 mg, By Mouth, Daily, # 90 tablet, 3 Refills, Maintenance, 04/09/21 14:24:00 EST, Tablet, [email or web address] #13209, Partial fill upon patient request if the [...] herpes simple x infection(Confirmed) Active Sinusitis(Confirmed) Active 28568 nl, repeat 2019 Social History Social History Type Response Smoking Status Former smoker; Other : Quit smoking age 35; entered on: 05/03/16 Sex
--- OUTSIDE RECORDS SUMMARY | 2023-06-02 11:00 | XMS_ITS | Continuity of Care Document ---
Author Name Unknown Organization [facility] Address [address] [place] [address]- Care Team Providers Care Manager Architecture Name Role Phone Brock Culver MD Primary Care Physician Encounter [facility] Date(s): 02/02/21 - 03/04/21 [facility] [address] [place] [address]- Attending Physician: Not on Staff, Attending MD Referring Physician: Brock Culver MD Allergies, [...] 03/12/07 Give n 1Location History: [facility] 2Result Comment: [03/05/2013] FLUVIRIN LOT # [id number] EXP 05/31/13 3Result Comment: DID NOT GET 4Result Comment: PT REFUSED 5Admin Note: [employer] [facility] 6Location History: [facility] Medications CeleBREX 200 mg oral capsule 1 capsule = 200 mg, By Mouth, Daily, # 90 capsule, 0 Refills, Maintenance, 01/22/21 14:58:00 EST, [place]aps[place], [facility] #[id number], Partial fill upon patient request if the prescription is for a schedule II opioid drug., 152.4, cm, 11/30/20 14:28:... Start Date: 01/22/21 Stop Date: 04/22/21 Status: Ordered Diflucan 150 mg oral tablet 1 tablet = 150 mg, By Mouth, Once, # 1 tablet, 0 Refills, Soft Stop, 01/26/21 13:52:00 EST, [facility] #[id number], 152.4, cm, 11/30/20 14:28:00 EDT, Height Start Date: 01/26/21 Status: Ordered doxycycline hyclate 100 mg oral capsule 1 capsule = 100 mg, By Mouth, 2 times a day, # 20 capsule, 0 Refills, Maintenance, 02/08/21 10:39:00 EST, Capsule, [facility] #[id number], Partial fill upon patient request if the prescription is for a schedule II opioid drug., 152.4, cm, ... Start Date: 02/08/21 Status: Ordered escitalopram 10 mg oral tablet 1 tablet = 10 mg, By Mouth, Daily, # 30 tablet, 5 Refills, Maintenance, 10/30/20 8:13:00 EDT, Tablet, [facility] #[id number], 152.4, cm, 10/13/20 7:01:00 EDT, Height Start Date: 10/30/20 Status: Ordered Flonase 50 mcg/inh nasal spray 2 sprays, Nares, Both, Daily in AM, # 16 Gm, 11 Refills, Maintenance, 11/30/20 14:56:00 EDT, [place],[facility] #[id number], Partial fill upon patient request if the prescription is for a schedule II opioid drug., 2 sprays Nares, Both Daily in AM,... Start Date: 11/30/20 Status: Ordered Macrobid macrocrystals-monohydrate 100 mg oral capsule 1 capsule = 100 mg, By Mouth, 2 times a day, for 5 days, # 10 capsule, 0 Refills, Acute 03/06/21 15:21:00 EST, 03/01/21 15:21:00 EST, Caps[place], [facility] #[id number], Partial fill upon patient request if the [...] herpes simple x infection(Confirmed) Active Sinusitis(Confirmed) Active 51797 nl, repeat 2019 Social History Social History Type Response Smoking Status Former smoker; Other : Quit smoking age 35; entered on: 05/03/16 Sex
--- OUTSIDE RECORDS SUMMARY | 2023-06-02 11:00 | XMS_ITS | Continuity of Care Document ---
Author Name Unknown Organization [facility] Address [address] [place] [address]- Care Team Providers Care Direct Care Worker Name Role Phone Brock Culver MD Primary Care Physician [facility]s): 06/20/21 - 07/20/21 [facility] Adult [address] [place] [address]- Allergies, Adverse Reactions, Alerts No Known Allergies [...] 03/12/07 Give n 1Location History: [facility] 2Result Comment: [03/05/2013] [facility]IN LOT # [id number] EXP 05/31/13 3Result Comment: DID NOT GET 4Result Comment: PT REFUSED 5Admin Note: Tyche Keyshawn [facility] 6Location History: [facility] Medications escitalopram 10 mg oral tablet 1 tablet = 10 mg, By Mouth, Daily, # 30 tablet, 5 Refills, Maintenance, 10/30/20 8:13:00 EDT, Tablet, [facility] #[id number], 152.4, cm, 10/13/20 7:01:00 EDT, Height Start Date: 10/30/20 Status: Ordered Flonase 50 mcg/inh nasal spray 2 sprays, Nares, Both, Daily in AM, # 16 Gm, 11 Refills, Maintenance, 11/30/20 14:56:00 EDT, [place],[facility] #80309, Partial fill upon patient request if the prescription is for a schedule II opioid drug., 2 sprays Nares, Both Daily in AM,... Start Date: 11/30/20 Status: Ordered ZyrTEC 10 mg oral tablet 1 tablet = 10 mg, By Mouth, Daily, # 90 tablet, 3 Refills, Maintenance, 04/09/21 14:24:00 EST, Tablet, [facility] #97295, Partial fill upon patient request if the [...] herpes simple x infection(Confirmed) Active Sinusitis(Confirmed) Active 41691; repeat 203010 , repeat 2019 Social History Social History Type Response Smoking Status Former smoker; Other : Quit smoking age 35; entered on: 05/03/16 Sex
--- OUTSIDE RECORDS SUMMARY | 2023-06-02 11:00 | XMS_ITS | Continuity of Care Document ---
Author Name Unknown Organization [facility] Address [address] [place] [address]- Care Team Providers Care Project Coach Name Role Phone Brock Culver MD Primary Care Physician [facility]s): 06/17/19 - 06/27/19 [facility] Adult [address] [place] [address]- [facility] Attending Physician: Admtr, Ar8 Allergies, Adverse [...] 03/12/07 Give n 1Location History: [facility] 2Result Comment: [03/05/2013] FLUVIRIN LOT # [id number] EXP 05/31/13 3Result Comment: PT REFUSED 4Admin Note: [employer] [facility] 5Location History: [facility] 6Result Comment: DID NOT GET Medications Activella oral tablet 1 tablet, By Mouth, Daily, # 28 tablet, 3 Refills Start Date: 11/03/08 Status: Ordered Diflucan 150 mg oral tablet 1 tablet = 150 mg, By Mouth, Once, # 1 tablet, 0 Refills, Soft Stop, 06/25/19 14:21:00 EDT, [place],[facility] #[id number], 152.4, cm, 05/13/19 7:38:00 EDT, Height Start Date: 06/25/19 Status: Ordered escitalopram 10 mg oral tablet 1 tablet = 10 mg, By Mouth, Daily, # 90 tablet, 4 Refills, Maintenance, 05/06/19 13:44:00 EST, Tablet, [facility] #69606, 152.4, cm, 03/18/19 15:27:00 EST, Height Start Date: 05/06/19 Status: Ordered Nystop 201622 u/gm powder See Instructions, # 15 Gm, APPLY THIN LAYER TO THE AFFECTED AREA TWICE DAILY, [facility] #[id number] Start Date: 10/19/18 Status: Ordered Singulair 10 mg oral tablet 10 mg, 1, tablet, By Mouth, Daily, # 90 tablet, Refills 3, Tot. Refills 3, Maintenance, 10/02/18 8:55:03 EDT, Route to Pharmacy Electronically, [id number], [facility] #[id number] Start Date: 10/02/18 Stop Date: 09/27/19 Status: [...] herpes simple x infection(Confirmed) Active Sinusitis(Confirmed) Active 91360 nl, repeat 2019 Social History Social History Type Response Smoking Status Former smoker; Other : Quit smoking age 35; entered on: 05/03/16 Sex
--- OUTSIDE RECORDS SUMMARY | 2023-06-02 11:00 | XMS_ITS | Continuity of Care Document ---
Author Name Unknown Organization [facility] Address [address] [place] [address]- Care Team Providers Care Software Support Representative Name Role Phone Brock Culver MD Primary Care Physician [facility]22 - 05/26/22 [facility] Adult [address] [place] [address]- Attending Physician: Not on Staff, Attending MD [...] (oldterm) 03/12/07 Give n 1[facility] 2Result Comment: [03/05/2013] FLUVIRIN LOT # [id number] EXP 05/31/13 3Result Comment: DID NOT GET 4Result Comment: PT REFUSED 5Admin Note: [employer] [facility] [place] 6Location History: [facility] Medications amoxicillin 875 mg oral tablet 1 tablet = 875 mg, By Mouth, 2 times a day, # 14 tablet, 0 Refills, Maintenance, 11/02/21 11:39:00 EDT, Tablet, [facility] #[id number], Partial fill upon patient request if the prescription is for a schedule II opioid drug., 152.4, cm, 11/02/21 1... Start Date: 11/02/21 Stop Date: 11/09/21 Status: Ordered escitalopram 10 mg oral tablet 1 tablet, By Mouth, Daily, # 90 tablet, 3 Refills, Maintenance, 01/27/22 7:54:00 EST, [facility] #[id number], 152.4, cm, 01/22/22 15:53:00 EST, Height Start Date: 01/27/22 Status: Ordered Flonase 50 mcg/inh nasal spray 2 sprays, Nares, Both, Daily in AM, # 16 Gm, 11 Refills, Maintenance, 11/30/20 14:56:00 EDT, [place] #[id number], Partial fill upon patient request if the [...] Refills, Maintenance, 01/22/22 15:55:00 EST, ER Tablet, [facility] #0... Start Date: 01/22/22 Status: Ordered predniSONE 10 mg oral tablet 1 tablet = 10 mg, By Mouth, 2 times a day, # 10 tablet, 0 Refills, Maintenance, 01/22/22 15:54:00 EST, Tablet, [facility] #[id number], Partial fill upon patient request if the prescription is for a schedule II opioid drug., 152.4, cm, 01/22/22 15... Start Date: 01/22/22 Stop Date: 01/27/22 Status: Ordered predniSONE 20 mg oral tablet 1 tablet = 20 mg, By Mouth, Daily, # 7 tablet, 2 Refills, Maintenance, 09/14/21 10:40:00 EDT, Tablet, [facility] #[id number], Partial fill upon patient request if the prescription is for a schedule II opioid drug., 152.4, cm, 09/14/21 10:23:00 ED... Start Date: 09/14/21 Stop Date: 10/05/21 Status: Ordered ProAir HFA 90 mcg/inh inhalation aerosol with adapter 2, puffs, Inhalation, Every 6 hours, PRN, # 8.5 Gm, Refills 0, Tot. Refills 0, Maintenance, 01/22/22 15:57:00 EST, Aerosol, Route to Pharmacy Electronically, [id number], [facility] #[id number], 152.4, cm, 01/22/22 15:53:... Start Date: 01/22/22 [...] 3 Refills, Maintenance, 04/09/21 14:24:00 EST, Tablet, [facility] #[id number], Partial fill upon patient request if the [...] simplex infection Confirmed Active Sinusitis Confirmed Active 17113; repeat 2030 28728 nl, repeat 2019 Social History Social History Type Response Smoking Status Former smoker; Other : Quit smoking age 35; entered on: 05/03/16 Sex Patient Care team information Care Team Personnel Name: Abiola LAM, Brock Junior Position: [facility] Primary Care Physician Member Role: PCP Address: Address: [address] [place] [address]- Care Team Related Persons Name: SAMUEL ROY Address: home [address] [place] [address] Name: NAINA MCFARLANE Address: home [address] [place] [address]
--- OUTSIDE RECORDS SUMMARY | 2023-06-02 11:00 | XMS_ITS | Continuity of Care Document ---
Author Name Unknown Organization [facility] lt Address [address] [place] [address]- Care Team Providers Care Cream Gatherer Name Role Phone Brock Culver MD Primary Care Physician [facility]21 - 03/10/21 [facility] Adult [address] [place] [address]- Attending Physician: Admtr, Ar8 Allergies, Adverse Reactions, [...] 03/12/07 Give n 1[facility] 2Result Comment: [03/05/2013] FLUVIRIN LOT # [id number] EXP 05/31/13 3Result Comment: DID NOT GET 4Result Comment: PT REFUSED 5Admin Note: [employer] [facility] 6Location History: [facility] Medications CeleBREX 200 mg oral capsule 1 capsule = 200 mg, By Mouth, Daily, # 90 capsule, 0 Refills, Maintenance, 01/22/21 14:58:00 EST, [place], [facility] #[id number], Partial fill upon patient request if the prescription is for a schedule II opioid drug., 152.4, cm, 11/30/20 14:28:... Start Date: 01/22/21 Stop Date: 04/22/21 Status: Ordered Diflucan 150 mg oral tablet 1 tablet = 150 mg, By Mouth, Once, # 1 tablet, 0 Refills, Soft Stop, 01/26/21 13:52:00 EST, [facility] #[id number], 152.4, cm, 11/30/20 14:28:00 EDT, Height Start Date: 01/26/21 Status: Ordered doxycycline hyclate 100 mg oral capsule 1 capsule = 100 mg, By Mouth, 2 times a day, # 20 capsule, 0 Refills, Maintenance, 02/08/21 10:39:00 EST, [place], [facility] #[id number], Partial fill upon patient request if the prescription is for a schedule II opioid drug., 152.4, cm, ... Start Date: 02/08/21 Status: Ordered escitalopram 10 mg oral tablet 1 tablet = 10 mg, By Mouth, Daily, # 30 tablet, 5 Refills, Maintenance, 10/30/20 8:13:00 EDT, Tablet, [facility] #[id number], 152.4, cm, 10/13/20 7:01:00 EDT, Height Start Date: 10/30/20 Status: Ordered Flonase 50 mcg/inh nasal spray 2 sprays, Nares, Both, Daily in AM, # 16 Gm, 11 Refills, Maintenance, 11/30/20 14:56:00 EDT, [place] #[id number], Partial fill upon patient request if the [...] herpes simple x infection(Confirmed) Active Sinusitis(Confirmed) Active 81025 nl, repeat 2020 Procedures Procedure Date Related Diagnosis Body Site Status Colonoscopy 1 11/07/20 Completed 1repeat 2030 Social History Social History Type Response Smoking Status Former smoker; Other : Quit smoking age 35; entered on: 05/03/16 Sex
--- OUTSIDE RECORDS SUMMARY | 2023-06-02 11:00 | XMS_ITS | Continuity of Care Document ---
Author Name Unknown Organization [facility] [place] Address [address] [place] [address]- Care Team Providers Care Power And Recovery Supervisor Name Role Phone Abiola LAM, Brock Junior Primary Care Physician [phone] [facility] 06[facility]26[facility]20 - 07/26/20 [facility] [place] [address] [place] [address]- Allergies, Adverse Reactions, Alerts Substance Reaction Severity [...] DID NOT GET 2Location History: [facility] 3Result Comment: [03/05/2013] FLUVIRIN LOT # [id number] EXP 05/31/13 4Result Comment: PT REFUSED 5Admin Note: [facility] [place] History[place] [facility] Medications escitalopram 10 mg oral tablet 1 tablet = 10 mg, By Mouth, Daily, FURTHER REFILLS REQUIRE AN OFFICE VISIT, # 30 tablet, 0 Refills,Maintenance, 06/23/20 17:04:00 EDT, Tablet, [facility] #[id number], 152.4, cm, 05/23/20 16:13:00 EDT, Height Start Date: 06/23/20 Status: Ordered Problem List Condition Effective Dates Status Health Status Inform ant Acute bronchitis(Confirmed) Active After menopause(Confirmed) Active Allergic rhinitis(Confirmed) Active Chronic cough(Confirmed) Active Colonoscopy(Confirmed) 1 Active Depression(Confirmed) Active Diverticulitis(Confirmed) Active Female climacteric state(Confirmed) Active Acid reflux(Confirmed) Active H/O heartburn(Confirmed) Active Recurrent oral herpes simple x infection(Confirmed) Active Sinusitis(Confirmed) Active 17115 nl, repeat 2019 Social History Social History Type Response Smoking Status Former smoker; Other : Quit smoking age 35; entered on: 05/03/16 Sex
--- OUTSIDE RECORDS SUMMARY | 2023-06-02 11:00 | XMS_ITS | Continuity of Care Document ---
Author Name Unknown Organization [facility] Address [address] [place] [address]- Care Team Providers Care Tablet Coater Name Role Phone Abiola LAM, Brock Junior Primary Care Physician [facility] 06/22[facility]20 - 07/22/20 [facility] Adult [address] [place] [address]- Allergies, Adverse Reactions, Alerts Substance Reaction Severity [...] DID NOT GET 2Location History: [facility] 3Result Comment: [03/05/2013] FLUVIRIN LOT # [id number] EXP 05/31/13 4Result Comment: PT REFUSED 5Admin Note: [employer] [facility] 6Location History: [facility] Medications escitalopram 10 mg oral tablet 1 tablet = 10 mg, By Mouth, Daily, FURTHER REFILLS REQUIRE AN OFFICE VISIT, # 30 tablet, 0 Refills,Maintenance, 06/23/20 17:04:00 EDT, Tablet, [facility] #[id number], 152.4, cm, 05/23/20 16:13:00 EDT, Height Start Date: 06/23/20 Status: Ordered Problem List Condition Effective Dates Status Health Status Inform ant Acute bronchitis(Confirmed) Active After menopause(Confirmed) Active Allergic rhinitis(Confirmed) Active Chronic cough(Confirmed) Active Colonoscopy(Confirmed) 1 Active Depression(Confirmed) Active Diverticulitis(Confirmed) Active Female climacteric state(Confirmed) Active Acid reflux(Confirmed) Active H/O heartburn(Confirmed) Active Recurrent oral herpes simple x infection(Confirmed) Active Sinusitis(Confirmed) Active 40149 nl, repeat 2019 Social History Social History Type Response Smoking Status Former smoker; Other : Quit smoking age 35; entered on: 05/03/16 Sex
--- OUTSIDE RECORDS SUMMARY | 2023-06-02 11:00 | XMS_ITS | Continuity of Care Document ---
Author Name Unknown Organization [facility] Address [address] [place] [address]- Care Team Providers Care Silver Plater Name Role Phone Brock Culver MD Primary Care Physician [facility]s): 04/16/23 - 04/23/23 [facility] Adult [address] [place] [address]- Encounter Diagnosis COVID-19(Discharge Diagnosis) - 04/16/23 Attending Physician: Yulissa Pal Allergies, Adverse Reactions, Alerts No Known Allergies Immunizations Given and Recorded Vaccine Date Status Refusal Reason SARS-CoV-2(COVID-19)mRNA-LNP vac([id number]) 02/04/23 Recorded influenza virus vaccine, inactivated 01/13/23 [...] virus vaccine, inactivated 1, 2 02/27/13 Recorded [id number] bivalent booster vax 01/02/22 Recorded SARS-CoV-2 (COVID-19) [...] HOSPITAL 2Result Comment: [03/05/2013] FLUVIRIN LOT # [id number] EXP 05/31/13 3Location History: [facility] Medications azithromycin 250 mg oral tablet See Instructions, Take 2 tablets on day 1 and 1 tablet daily for next 4 days, # 6 tablet, 0 Refills, Maintenance, 04/16/23 10:42:00 EST, Tablet, [facility] #[id number], Partial fill upon patientrequest if the prescription is for a schedule II op... Start Date: 04/16/23 Status: Ordered escitalopram 10 mg oral tablet 1 tablet, By Mouth, Daily, # 90 tablet, 3 Refills, Maintenance, 09/05/22 14:05:00 EDT, [facility] #[id number], 152.4, cm, 09/05/22 12:54:00 EDT, Height Start Date: 09/05/22 Status: Ordered fluticasone 50 mcg/inh nasal spray 2 sprays = 100 mcg, Nares, Both, Daily in AM, # 16 Gm, 11 Refills, Maintenance, 02/10/23 14:27:00 EST, [place] #[id number], Partial fill upon patient request if the prescription is fora schedule II opioid drug., 2 sprays Nares, Both Da... Start Date: 02/10/23 Status: Ordered predniSONE 10 mg oral tablet 1 tablet = 10 mg, By Mouth, 2 times a day, # 10 tablet, 0 Refills, Maintenance, 04/16/23 10:22:00 EST, Tablet, [facility] #[id number], Partial fill upon patient request if the prescription is for a schedule II opioid drug., 152.4, cm, 04/16/23 10... Start Date: 04/16/23 Status: Ordered predniSONE 20 mg oral tablet 2 tablet = 40 mg, By Mouth, Daily, PRN severe cough, # 20 tablet, 0 Refills, Maintenance, 02/10/23 14:26:00 EST, Tablet, [facility] #[id number], Partial fill upon patient request if the [...] patch, 0 Refills, Maintenance, 02/10/23 14:23:00 EST, [facility] #[id number], Partial fill upon patient request if the prescription is for a schedule II opioid drug., 1 patch Topically Every 72 hours, 152.4... Start Date: 02/10/23 Status: Ordered ZyrTEC 10 mg oral tablet 1 tablet = 10 mg, By Mouth, Daily, # 90 tablet, 3 Refills, Maintenance, 04/09/21 14:24:00 EST, Tablet, [facility] #[id number], Partial fill upon patient request if the [...] Recurrent oral herpes simplex infection Confirmed Active 83730; repeat 2030 nl, repeat 2019 Diagnosis Diagnosis Type Effective Dates Health Status Clini levon Service Informant COVID-19 Discharge Diagnosis 04/16/23 Vital Signs Most recent to oldest [Reference Range]: 1 Height 152.40 cm (04/16/23 10:19 AM) Social History Social History Type Response Smoking Status Former smoker; Other : Quit smoking age 35; entered on: 05/03/16 Sex Patient Care team information Care Team Personnel Name: Abiola LAM, Brock Junior Position: S Physician - Primary Care Member Role: PCP Address: Address: [address] [place] [address]- Care Team Related Persons Name: SAMUEL ROY Address: home [address] [place] [address] Name: NAINA MCFARLANE Address: home [address] [place] [address]
--- OUTSIDE RECORDS SUMMARY | 2023-06-02 11:00 | XMS_ITS | Continuity of Care Document ---
Author Name Unknown Organization [facility] Address [address] [place] [address]- Care Team Providers Care Manager Dental Name Role Phone Brock Culver MD Primary Care Physician [facility]): 01/22/22 - 02/21/22 [facility] Adult [address] [place] [address]- Attending Physician: Admtr, Ar8 Allergies, Adverse Reactions, [...] (oldterm) 03/12/07 Give n [facility] 2Result Comment: [03/05/2013] FLUVIRIN LOT # [id number] EXP 05/31/13 3Result Comment: DID NOT GET 4Result Comment: PT REFUSED 5Admin Note: [facility] [place] History: [facility] Medications amoxicillin 875 mg oral tablet 1 tablet = 875 mg, By Mouth, 2 times a day, # 14 tablet, 0 Refills, Maintenance, 11/02/21 11:39:00 EDT, Tablet, [facility] #[id number], Partial fill upon patient request if the prescription is for a schedule II opioid drug., 152.4, cm, 11/02/21 1... Start Date: 11/02/21 Stop Date: 11/09/21 Status: Ordered escitalopram 10 mg oral tablet 1 tablet, By Mouth, Daily, # 90 tablet, 3 Refills, Maintenance, 01/27/22 7:54:00 EST, [facility] #[id number], 152.4, cm, 01/22/22 15:53:00 EST, Height Start Date: 01/27/22 Status: Ordered Flonase 50 mcg/inh nasal spray 2 sprays, Nares, Both, Daily in AM, # 16 Gm, 11 Refills, Maintenance, 11/30/20 14:56:00 EDT, [place] #13135, Partial fill upon patient request if the [...] Refills, Maintenance, 01/22/22 15:55:00 EST, ER Tablet, [facility] #0... Start Date: 01/22/22 Status: Ordered predniSONE 10 mg oral tablet 1 tablet = 10 mg, By Mouth, 2 times a day, # 10 tablet, 0 Refills, Maintenance, 01/22/22 15:54:00 EST, Tablet, [facility] #[id number], Partial fill upon patient request if the prescription is for a schedule II opioid drug., 152.4, cm, 01/22/22 15... Start Date: 01/22/22 Stop Date: 01/27/22 Status: Ordered predniSONE 20 mg oral tablet 1 tablet = 20 mg, By Mouth, Daily, # 7 tablet, 2 Refills, Maintenance, 09/14/21 10:40:00 EDT, Tablet, [facility] #[id number], Partial fill upon patient request if the prescription is for a schedule II opioid drug., 152.4, cm, 09/14/21 10:23:00 ED... Start Date: 09/14/21 Stop Date: 10/05/21 Status: Ordered ProAir HFA 90 mcg/inh inhalation aerosol with adapter 2, puffs, Inhalation, Every 6 hours, PRN, # 8.5 Gm, Refills 0, Tot. Refills 0, Maintenance, 01/22/22 15:57:00 EST, Aerosol, Route to Pharmacy Electronically, [id number], [facility] #[id number], 152.4, cm, 01/22/22 15:53:... Start Date: 01/22/22 [...] 3 Refills, Maintenance, 04/09/21 14:24:00 EST, Tablet, [facility] #[id number], Partial fill upon patient request if the [...] simplex infection Confirmed Active Sinusitis Confirmed Active 24973; repeat 2030 32517 nl, repeat 2020 Procedures Procedure Date Related [...] Event Display: Radiology Results Scanned Authored Date: [id number] Patient Care team information Care Team Personnel Name: Brock Culver MD Position: [facility] Primary Care Physician Member Role: PCP Address: Address: [address] [place] [address]- Care Team Related Persons Name: SAMUEL ROY Address: [address] [place] [address] Name: NAINA MCFARLANE Address: [address] [place] [address]
--- OUTSIDE RECORDS SUMMARY | 2023-06-02 11:00 | XMS_ITS | Continuity of Care Document ---
Author Name Unknown Organization [facility] [place] lt Address [address] [place] [address]- Care Team Providers Care Cinder Worker Name Role Phone Brock Culver MD Primary Care Physician [facility] 03[facility]17[facility]20 - 03/24/20 [facility] [place] Adult [address] [place] [address]- Attending Physician: Brock Culver MD Allergies, Adverse [...] [place] 3Result Comment: [03/05/2013] FLUVIRIN LOT # [id number] EXP 05/31/13 4Result Comment: PT REFUSED 5Admin Note: [employer] 6Location History: [facility] Medications escitalopram 10 mg oral tablet 1 tablet = 10 mg, By Mouth, Daily, # 90 tablet, 4 Refills, Maintenance, 05/06/19 13:44:00 EST, Tablet, [facility] #[id number], 152.4, cm, 03/18/19 15:27:00 EST, Height Start Date: 05/06/19 Status: Ordered levoFLOXacin 500 mg oral tablet 1 tablet = 500 mg, By Mouth, Every 24 hours, for 10 days, # 10 tablet, 0 Refills, Acute 03/27/20 9:57:00 EST, 03/17/20 9:57:00 EST, Tablet, [facility] #38444, Partial fill upon patient request if the prescription is for a schedule II opioid... Start Date: 03/17/20 Stop Date: 03/27/20 Status: Ordered Singulair 10 mg oral tablet 10 mg, 1, tablet, By Mouth, Daily, # 90 tablet, Refills 1, Tot. Refills 1, Maintenance, 02/07/20 15:07:00 EST, Route to Pharmacy Electronically, [facility] #[id number], 152.4, cm, 01/10/20 11:58:00 EST, Height Start [...] herpes simple x infection(Confirmed) Active Sinusitis(Confirmed) Active 39223 nl, repeat 2019 Vital Signs Most recent to oldest [Reference Range]: 1 Height 152.40 cm (03/17/20 8:50 AM) Social History Social History Type Response Smoking Status Former smoker; Other : Quit smoking age 35; entered on: 05/03/16 Sex
--- OUTSIDE RECORDS SUMMARY | 2023-06-02 11:00 | XMS_ITS | Continuity of Care Document ---
Author Name Unknown Organization [facility] [place] Address [address] [place] [address]- Care Team Providers Care Access Consultant Name Role Phone Abiola LAM, Brock Junior Primary Care Physician [facility]): 03/14/22 - 04/13/22 [facility] [place] Adult [address] [place] [address]- Attending Physician: Admtr, Ar8 Allergies, Adverse Reactions, [...] 03/12/07 Give n 1[facility] 2Result Comment: [03/05/2013] FLUVIRIN LOT # [id number] EXP 05/31/13 3Result Comment: DID NOT GET 4Result Comment: PT REFUSED 5Admin Note: [facility] [place] 6Location History: [facility] Medications amoxicillin 875 mg oral tablet 1 tablet = 875 mg, By Mouth, 2 times a day, # 14 tablet, 0 Refills, Maintenance, 11/02/21 11:39:00 EDT, [facility] #[id number], Partial fill upon patient request if the prescription is for a schedule II opioid drug., 152.4, cm, 11/02/21 1... Start Date: 11/02/21 Stop Date: 11/09/21 Status: Ordered escitalopram 10 mg oral tablet 1 tablet, By Mouth, Daily, # 90 tablet, 3 Refills, Maintenance, 01/27/22 7:54:00 EST, [facility] #[id number], 152.4, cm, 01/22/22 15:53:00 EST, Height Start Date: 01/27/22 Status: Ordered Flonase 50 mcg/inh nasal spray 2 sprays, Nares, Both, Daily in AM, # 16 Gm, 11 Refills, Maintenance, 11/30/20 14:56:00 EDT, [place] #[id number], Partial fill upon patient request if the [...] Refills, Maintenance, 01/22/22 15:55:00 EST, ER Tablet, [facility] #0... Start Date: 01/22/22 Status: Ordered predniSONE 10 mg oral tablet 1 tablet = 10 mg, By Mouth, 2 times a day, # 10 tablet, 0 Refills, Maintenance, 01/22/22 15:54:00 EST, Tablet, [facility] #48347, Partial fill upon patient request if the prescription is for a schedule II opioid drug., 152.4, cm, 01/22/22 15... Start Date: 01/22/22 Stop Date: 01/27/22 Status: Ordered predniSONE 20 mg oral tablet 1 tablet = 20 mg, By Mouth, Daily, # 7 tablet, 2 Refills, Maintenance, 09/14/21 10:40:00 EDT, Tablet, [facility] #35513, Partial fill upon patient request if the prescription is for a schedule II opioid drug., 152.4, cm, 09/14/21 10:23:00 ED... Start Date: 09/14/21 Stop Date: 10/05/21 Status: Ordered ProAir HFA 90 mcg/inh inhalation aerosol with adapter 2, puffs, Inhalation, Every 6 hours, PRN, # 8.5 Gm, Refills 0, Tot. Refills 0, Maintenance, 01/22/22 15:57:00 EST, Aerosol, Route to Pharmacy Electronically, [id number], [facility] #[id number], 152.4, cm, 01/22/22 15:53:... Start Date: 01/22/22 [...] 3 Refills, Maintenance, 04/09/21 14:24:00 EST, Tablet, [facility] #[id number], Partial fill upon patient request if the [...] simplex infection Confirmed Active Sinusitis Confirmed Active 61468; repeat 2030 89981 nl, repeat 2019 Procedures Procedure Date Related [...] Event Display: Radiology Results Scanned Authored Date: [id number] Patient Care team information Care Team Personnel Name: Brock Culver MD Position: [facility] Primary Care Physician Member Role: PCP Address: Address: [address] [place] [address]- Care Team Related Persons Name: SAMUEL ROY Address: [address] [place] [address] Name: NAINA MCFARLANE Address: [address] [place] [address]
--- OUTSIDE RECORDS SUMMARY | 2023-06-02 11:00 | XMS_ITS | Continuity of Care Document ---
Author Name Unknown Organization [facility] Address [address] [place] [address]- Care Team Providers Care Stripper Preliminary Name Role Phone Brock Culver MD Primary Care Physician Encounter [facility] Date(s): 04/20/19 - 08/18/19 [facility] [address] [place] [address] [facility] Attending Physician: Jian Cook MD Admitting Physician: Jian Cook MD Referring Physician: Mindy Huston MD Allergies, Adverse Reactions, Alerts Substance Reaction [...] 03/12/07 Give n 1[facility] 2Result Comment: [03/05/2013] FLUVIRIN LOT # [id number] EXP 05/31/13 3Result Comment: PT REFUSED 4Admin Note: [facility] 5Location History: [facility] 6Result Comment: DID NOT GET Medications Activella oral tablet 1 tablet, By Mouth, Daily, # 28 tablet, 3 Refills Start Date: 11/03/08 Status: Ordered Azithromycin 5 Day Dose Pack 250 mg oral tablet 1 pack/packet, By Mouth, Once, # 6 tablet, 0 Refills, Soft Stop, 07/30/19 8:25:00 EDT, Tablet, [facility] #[id number], 152.4, cm, 07/30/19 8:01:00 EDT, Height Start Date: 07/30/19 Status: Ordered Diflucan 150 mg oral tablet 1 tablet = 150 mg, By Mouth, Once, # 1 tablet, 0 Refills, Soft Stop, 06/25/19 14:21:00 EDT, Tablet,[facility] #[id number], 152.4, cm, 05/13/19 7:38:00 EDT, Height Start Date: 06/25/19 Status: Ordered escitalopram 10 mg oral tablet 1 tablet = 10 mg, By Mouth, Daily, # 90 tablet, 4 Refills, Maintenance, 05/06/19 13:44:00 EST, Tablet, [facility] #[id number], 152.4, cm, 03/18/19 15:27:00 EST, Height Start Date: 05/06/19 Status: Ordered Nystop 522896 u/gm powder See Instructions, # 15 Gm, APPLY THIN LAYER TO THE AFFECTED AREA TWICE DAILY, [facility] #[id number] Start Date: 10/19/18 Status: Ordered predniSONE 20 mg oral tablet See Instructions, 2 tablets daily for 5 days then 1 tablet daily for 5 days, # 15 tablet, 0 Refills, Maintenance, 07/30/19 8:25:00 EDT, Tablet, [facility] #[id number], 152.4, cm, 07/30/19 8:01:00 EDT, Height Start Date: 07/30/19 Status: Ordered Singulair 10 mg oral tablet 10 mg, 1, tablet, By Mouth, Daily, # 90 tablet, Refills 1, Tot. Refills 1, Maintenance, 08/11/19 15:07:00 EDT, Route to Pharmacy Electronically, [facility] #[id number], 152.4, cm, 07/30/19 8:01:00 EDT, Height Start [...] herpes simple x infection(Confirmed) Active Sinusitis(Confirmed) Active 45175 nl, repeat 2019 Social History Social History Type Response Smoking Status Former smoker; Other : Quit smoking age 35; entered on: 05/03/16 Sex
--- OUTSIDE RECORDS SUMMARY | 2023-06-02 11:00 | XMS_ITS | Continuity of Care Document ---
Author Name Unknown Organization [facility] [place] Address [address] [place] [address]- Care Team Providers Care Sight Mounter Name Role Phone Abiola LAM, Brock Junior Primary Care Physician [phone] [facility]counter [facility] Date(s): 05/25/20 - 06/24/20 [facility] Adult [address] [place] [address]- Attending Physician: Lolis Collins NP Allergies, Adverse Reactions, Alerts Substance Reaction Severity [...] [place] 3Result Comment: [03/05/2013] FLUVIRIN LOT # [id number] EXP 05/31/13 4Result Comment: PT REFUSED 5Admin Note: [facility] 6Location History: [facility] Medications escitalopram 10 mg oral tablet 1 tablet = 10 mg, By Mouth, Daily, FURTHER REFILLS REQUIRE AN OFFICE VISIT, # 30 tablet, 0 Refills,Maintenance, 06/23/20 17:04:00 EDT, Tablet, [facility] #[id number], 152.4, cm, 05/23/20 16:13:00 EDT, Height Start Date: 06/23/20 Status: Ordered Singulair 10 mg oral tablet 10 mg, 1, tablet, By Mouth, Daily, # 90 tablet, Refills 1, Tot. Refills 1, Maintenance, 02/07/20 15:07:00 EST, Route to Pharmacy Electronically, [facility] #[id number], 152.4, cm, 01/10/20 11:58:00 EST, Height Start [...] herpes simple x infection(Confirmed) Active Sinusitis(Confirmed) Active 08662 nl, repeat 2019 Social History Social History Type Response Smoking Status Former smoker; Other : Quit smoking age 35; entered on: 05/03/16 Sex
--- OUTSIDE RECORDS SUMMARY | 2023-06-02 11:00 | XMS_ITS | Continuity of Care Document ---
Author Name Unknown Organization [facility] Address [address] [place] [address]- Care Team Providers Care Pick Pulling Machine Operator Name Role Phone Brock Culver MD Primary Care Physician [phone] [facility]counter [facility] Date(s): 05/25/20 - 06/24/20 [facility] Adult [address] [place] [address]- Attending Physician: Admtr, Ar8 Allergies, Adverse Reactions, [...] [place] 3Result Comment: [03/05/2013] FLUVIRIN LOT # [id number] EXP 05/31/13 4Result Comment: PT REFUSED 5Admin Note: [facility] 6Location History: [facility] Medications escitalopram 10 mg oral tablet 1 tablet = 10 mg, By Mouth, Daily, FURTHER REFILLS REQUIRE AN OFFICE VISIT, # 30 tablet, 0 Refills,Maintenance, 06/23/20 17:04:00 EDT, Tablet, [facility] #[id number], 152.4, cm, 05/23/20 16:13:00 EDT, Height Start Date: 06/23/20 Status: Ordered Singulair 10 mg oral tablet 10 mg, 1, tablet, By Mouth, Daily, # 90 tablet, Refills 1, Tot. Refills 1, Maintenance, 02/07/20 15:07:00 EST, Route to Pharmacy Electronically, [facility] #[id number], 152.4, cm, 01/10/20 11:58:00 EST, Height Start [...] herpes simple x infection(Confirmed) Active Sinusitis(Confirmed) Active 18171 nl, repeat 2019 Social History Social History Type Response Smoking Status Former smoker; Other : Quit smoking age 35; entered on: 05/03/16 Sex
--- OUTSIDE RECORDS SUMMARY | 2023-06-02 11:00 | XMS_ITS | Continuity of Care Document ---
Author Name Unknown Organization [facility] Address [address] [place] [address]- Care Team Providers Care Side Seam Envelope Machine Operator Name Role Phone Abiola LAM, Brock Junior Primary Care Physician [phone] [facility]counter [facility] Date(s): 01/10/20 - 02/09/20 [facility] Adult [address] [place] [address]- Allergies, Adverse Reactions, Alerts Substance Reaction Severity [...] Give n 1Location History: [facility] 2Result Comment: [03/05/2013] FLUVIRIN LOT # [id number] EXP 05/31/13 3Result Comment: PT REFUSED 4Admin Note: [employer] [facility] of [facility] 5Location History: center pharmacy [facility] 6Result Comment: DID NOT GET Medications Activella oral tablet 1 tablet, By Mouth, Daily, # 28 tablet, 3 Refills Start Date: 11/03/08 Status: Ordered escitalopram 10 mg oral tablet 1 tablet = 10 mg, By Mouth, Daily, # 90 tablet, 4 Refills, Maintenance, 05/06/19 13:44:00 EST, Tablet, [facility] #[id number], 152.4, cm, 03/18/19 15:27:00 EST, Height Start Date: 05/06/19 Status: Ordered Singulair 10 mg oral tablet 10 mg, 1, tablet, By Mouth, Daily, # 90 tablet, Refills 1, Tot. Refills 1, Maintenance, 02/07/20 15:07:00 EST, Route to Pharmacy Electronically, [facility] #[id number], 152.4, cm, 01/10/20 11:58:00 EST, Height Start [...] herpes simple x infection(Confirmed) Active Sinusitis(Confirmed) Active 79791 nl, repeat 2019 Social History Social History Type Response Smoking Status Former smoker; Other : Quit smoking age 35; entered on: 05/03/16 Sex
--- OUTSIDE RECORDS SUMMARY | 2023-06-02 11:00 | XMS_ITS | Continuity of Care Document ---
Author Name Unknown Organization [facility] Address [address] [place] [address]- Care Team Providers Care Training Technician Name Role Phone Brock Culver MD Primary Care Physician [facility] Date(s): 09/05/20 - 09/12/20 [facility] Adult [address] [place] [address]- Encounter Diagnosis Sinusitis(Discharge Diagnosis) - 09/05/20 Attending Physician: Brock Culver MD Allergies, Adverse [...] NOT GET 2Location History: [facility] 3Result Comment: [03/05/2013] FLUVIRIN LOT # [id number] EXP 05/31/13 4Result Comment: PT REFUSED 5Admin Note: [facility] 6Location History: center pharmacy [facility] Medications Augmentin 875 mg-125 mg oral tablet 1 tablet, By Mouth, Every 12 hours, for 14 days, # 28 tablet, 0 Refills, Acute 09/19/20 11:30:00 EDT, 09/05/20 11:30:00 EDT, Tablet, [facility] #[id number], Partial fill upon patient request if the prescription is for a schedule II opioid drug.,... Start Date: 09/05/20 Stop Date: 09/19/20 Status: Ordered Flonase 50 mcg/inh nasal spray 2 sprays, Nares, Both, Daily in AM, # 16 Gm, 11 Refills, Maintenance, 09/05/20 11:32:00 EDT, [place],[facility] #[id number], Partial fill upon patient request if the [...] herpes simple x infection(Confirmed) Active Sinusitis(Confirmed) Active 93934 nl, repeat 2019 Diagnosis Diagnosis Type Effective Dates Health Status Clini levon Service Informant Sinusitis Discharge Diagnosis 09/05/20 Vital Signs Most recent to oldest [Reference Range]: 1 Height 152.40 cm (09/05/20 11:02 AM) Weight 70.1 kg (09/05/20 11:02 AM) Oxygen Saturation [94-100 %] 97 % (09/05/20 11:02 AM) Pulse Rate [55-90 bpm] 79 bpm (09/05/20 11:02 AM) Body Mass Index [18.5-24.99] 30.18 *>HHI* (09/05/20 11:02 AM) Blood Pressure [90-138/55-84 mm Hg] 138/ 86mm Hg (09/05/20 11:02 AM) Mode of Delivery (Oxygen) Room air (09/05/20 11:02 AM) Blood pressure sites Arm, left (09/05/20 11:02 AM) Weight Obtained Via Standing scale (09/05/20 11:02 AM) Social History Social History Type Response Smoking Status Former smoker; Other : Quit smoking age 35; entered on: 05/03/16 Sex
--- OUTSIDE RECORDS SUMMARY | 2023-06-02 11:00 | XMS_ITS | Continuity of Care Document ---
Author Name Unknown Organization [facility] Address [address] [place] [address]- Care Team Providers Care Furniture Assembly Supervisor Name Role Phone Brock Culver MD Primary Care Physician [phone] [facility]counter [facility] Date(s): 11/15/19 - 12/15/19 [facility] [address] [place] [address] Allergies, Adverse Reactions, Alerts Substance Reaction Severity [...] CLINIC 2Result Comment: [03/05/2013] FLUVIRIN LOT # [id number] EXP 05/31/13 3Result Comment: PT REFUSED 4Admin Note: [employer] Keyshawn of [facility] 5Location History: center pharmacy [facility] 6Result Comment: DID NOT GET Medications Activella oral tablet 1 tablet, By Mouth, Daily, # 28 tablet, 3 Refills Start Date: 11/03/08 Status: Ordered Azithromycin 3 Day Dose Pack 500 mg oral tablet 2 tablet = 1,000 mg, By Mouth, Once, # 2 tablet, 0 Refills, Soft Stop, 11/18/19 8:20:00 EDT, Tablet, [facility] #[id number], 152.4, cm, 11/16/19 10:20:00 EDT, Height Start Date: 11/18/19 Status: Ordered Azithromycin 5 Day Dose Pack 250 mg oral tablet 1 pack/packet, By Mouth, Once, # 6 tablet, 0 Refills, Soft Stop, 11/18/19 8:20:00 EDT, Tablet, [facility] #53021, 152.4, cm, 11/16/19 10:20:00 EDT, Height Start Date: 11/18/19 Status: Ordered escitalopram 10 mg oral tablet 1 tablet = 10 mg, By Mouth, Daily, # 90 tablet, 4 Refills, Maintenance, 05/06/19 13:44:00 EST, Tablet, [facility] #[id number], 152.4, cm, 03/18/19 15:27:00 EST, Height Start Date: 05/06/19 Status: Ordered predniSONE 20 mg oral tablet 2 tablet = 40 mg, By Mouth, Daily, # 14 tablet, 0 Refills, Maintenance, 11/16/19 15:48:00 EDT, Tablet, [facility] #[id number], 152.4, cm, 11/16/19 10:20:00 EDT, Height Start Date: 11/16/19 Status: Ordered predniSONE 20 mg oral tablet See Instructions, 2 tablets daily for 5 days then 1 tablet daily for 5 days, # 15 tablet, 0 Refills, Maintenance, 07/30/19 8:25:00 EDT, Tablet, [facility] #[id number], 152.4, cm, 07/30/19 8:01:00 EDT, Height Start Date: 07/30/19 Status: Ordered Singulair 10 mg oral tablet 10 mg, 1, tablet, By Mouth, Daily, # 90 tablet, Refills 1, Tot. Refills 1, Maintenance, 08/11/19 15:07:00 EDT, [id number], 152.4, cm, 07/30/19 8:01:00 EDT, Height Start [...] herpes simple x infection(Confirmed) Active Sinusitis(Confirmed) Active 31219 nl, repeat 2019 Social History Social History Type Response Smoking Status Former smoker; Other : Quit smoking age 35; entered on: 05/03/16 Sex
--- OUTSIDE RECORDS SUMMARY | 2023-06-02 11:00 | XMS_ITS | Continuity of Care Document ---
Author Name Unknown Organization [facility] Address [address] [place] [address]- Care Team Providers Care Film Critic Name Role Phone Brock Culver MD Primary Care Physician [phone] [facility] Date[place] 10/13/20 - 10/20/20 [facility] Adult [address] [place] [address]- Encounter Diagnosis Cough(Discharge Diagnosis) - 10/13/20 Attending Physician: Not on Staff, Attending MD [...] DID NOT GET 2Location History: [facility] 3Result Comment: [03/05/2013] FLUVIRIN LOT # [id number] EXP 05/31/13 4Result Comment: PT REFUSED 5Admin Note: [employer] [facility] of [facility] 6Location History: [facility] pharmacy [facility] Medications Flonase 50 mcg/inh nasal spray 2 sprays, Nares, Both, Daily in AM, # 16 Gm, 11 Refills, Maintenance, 09/05/20 11:32:00 EDT, [place],[facility] #[id number], Partial fill upon patient request if the [...] herpes simple x infection(Confirmed) Active Sinusitis(Confirmed) Active 86021 nl, repeat 2019 Diagnosis Diagnosis Type Effective Dates Health Status Clini levon Service Informant Cough Discharge Diagnosis 10/13/20 Vital Signs Most recent to oldest [Reference Range]: 1 Height 152.40 cm (10/13/20 7:01 AM) Social History Social History Type Response Smoking Status Former smoker; Other : Quit smoking age 35; entered on: 05/03/16 Sex
--- OUTSIDE RECORDS SUMMARY | 2023-06-02 11:00 | XMS_ITS | Continuity of Care Document ---
Author Name Unknown Organization [facility] Address [address] [place] [address]- Care Team Providers Care Manufacturing Maintenance Mechanic Name Role Phone Abiola LAM, Brock Junior Primary Care Physician [facility] Date(s): 03/13/22 - 04/13/22 [facility] Adult [address] [place] [address]- Attending Physician: Ally Daily NP Allergies, Adverse Reactions, Alerts No Known [...] HOSPITAL 2Result Comment: [03/05/2013] FLUVIRIN LOT # [id number] EXP 05/31/13 3Result Comment: DID NOT GET 4Result Comment: PT REFUSED 5Admin Note: [employer] [facility] 6Location History: center pharmacy [facility] Medications amoxicillin 875 mg oral tablet 1 tablet = 875 mg, By Mouth, 2 times a day, # 14 tablet, 0 Refills, Maintenance, 11/02/21 11:39:00 EDT, [facility][id number], Partial fill upon patient request if the prescription is for a schedule II opioid drug., 152.4, cm, 11/02/21 1... Start Date: 11/02/21 Stop Date: 11/09/21 Status: Ordered escitalopram 10 mg oral tablet 1 tablet, By Mouth, Daily, # 90 tablet, 3 Refills, Maintenance, 01/27/22 7:54:00 EST, [facility] #[id number], 152.4, cm, 01/22/22 15:53:00 EST, Height Start Date: 01/27/22 Status: Ordered Flonase 50 mcg/inh nasal spray 2 sprays, Nares, Both, Daily in AM, # 16 Gm, 11 Refills, Maintenance, 11/30/20 14:56:00 EDT, [place],[facility] #[id number], Partial fill upon patient request if the [...] Refills, Maintenance, 01/22/22 15:55:00 EST, ER Tablet, [facility] #0... Start Date: 01/22/22 Status: Ordered predniSONE 10 mg oral tablet 1 tablet = 10 mg, By Mouth, 2 times a day, # 10 tablet, 0 Refills, Maintenance, 01/22/22 15:54:00 EST, Tablet, [facility] #[id number], Partial fill upon patient request if the prescription is for a schedule II opioid drug., 152.4, cm, 01/22/22 15... Start Date: 01/22/22 Stop Date: 01/27/22 Status: Ordered predniSONE 20 mg oral tablet 1 tablet = 20 mg, By Mouth, Daily, # 7 tablet, 2 Refills, Maintenance, 09/14/21 10:40:00 EDT, Tablet, [facility] #[id number], Partial fill upon patient request if the prescription is for a schedule II opioid drug., 152.4, cm, 09/14/21 10:23:00 ED... Start Date: 09/14/21 Stop Date: 10/05/21 Status: Ordered ProAir HFA 90 mcg/inh inhalation aerosol with adapter 2, puffs, Inhalation, Every 6 hours, PRN, # 8.5 Gm, Refills 0, Tot. Refills 0, Maintenance, 01/22/22 15:57:00 EST, Aerosol, Route to Pharmacy Electronically, [id number], [facility] #[id number], 152.4, cm, 01/22/22 15:53:... Start Date: 01/22/22 [...] 3 Refills, Maintenance, 04/09/21 14:24:00 EST, Tablet, [facility] #[id number], Partial fill upon patient request if the [...] simplex infection Confirmed Active Sinusitis Confirmed Active 10197; repeat 2030 67096 nl, repeat 2019 Social History Social History Type Response Smoking Status Former smoker; Other : Quit smoking age 35; entered on: 05/03/16 Sex Patient Care team information Care Team Personnel Name: Brock Culver MD Position: [facility] Primary Care Physician Member Role: PCP Address: Address: [address] [place] [address] Care Team Related Persons Name: SAMUEL ROY Address: home [address] [place] [address] Name: NAINA MCFARLANE Address: home [address] [place] [address]
--- OUTSIDE RECORDS SUMMARY | 2023-06-02 11:01 | XMS_ITS | Continuity of Care Document ---
Author Name Unknown Organization [facility] Address [address] [place] [address]- Care Team Providers Care General Hardware Salesperson Name Role Phone Abiola LAM, Brock Junior Primary Care Physician [facility] Date[facility]s): 05/18/21 - 05/25/21 [facility] Adult [address] [place] [address]- Encounter Diagnosis Fatigue(Discharge Diagnosis) - 05/18/21 Attending Physician: Manoj TAYLOR, Zee Remy Allergies, [...] Give n 1Location History: [facility] 2Result Comment: [03/05/2013] FLUVIRIN LOT # [id number] EXP 05/31/13 3Result Comment: DID NOT GET 4Result Comment: PT REFUSED 5Admin Note: [employer] Keyshawn of [facility] 6Location History: center pharmacy [facility] Medications escitalopram 10 mg oral tablet 1 tablet = 10 mg, By Mouth, Daily, # 30 tablet, 5 Refills, Maintenance, 10/30/20 8:13:00 EDT, Tablet, [facility] #[id number], 152.4, cm, 10/13/20 7:01:00 EDT, Height Start Date: 10/30/20 Status: Ordered Flonase 50 mcg/inh nasal spray 2 sprays, Nares, Both, Daily in AM, # 16 Gm, 11 Refills, Maintenance, 11/30/20 14:56:00 EDT, [place],[facility] #[id number], Partial fill upon patient request if the prescription is for a schedule II opioid drug., 2 sprays Nares, Both Daily in AM,... Start Date: 11/30/20 Status: Ordered predniSONE 20 mg oral tablet 1 tablet = 20 mg, By Mouth, Daily, # 7 tablet, 0 Refills, Acute 06/01/21 0:00:00 EDT, 05/18/21 11:41:00 EDT, [facility] #[id number], Partial fill upon patient request if the prescription is for a schedule II opioid drug., 152.4, cm, 05/18/21 11:0... Start Date: 05/18/21 Stop Date: 06/01/21 Status: Ordered ZyrTEC 10 mg oral tablet 1 tablet = 10 mg, By Mouth, Daily, # 90 tablet, 3 Refills, Maintenance, 04/09/21 14:24:00 EST, Tablet, [facility] #[id number], Partial fill upon patient request if the [...] herpes simple x infection(Confirmed) Active Sinusitis(Confirmed) Active 32395; repeat 2030 18273 nl, repeat 2019 Diagnosis Diagnosis Type Effective Dates Health Status Clini levon Service Informant Fatigue Discharge Diagnosis 05/18/21 Vital Signs Most recent to oldest [Reference Range]: 1 Height 152.40 cm (05/18/21 11:00 AM) Weight 69.8 kg (05/18/21 11:00 AM) Oxygen Saturation [94-100 %] 98 % (05/18/21 11:00 AM) Pulse Rate [55-90 bpm] 70 bpm (05/18/21 11:00 AM) Body Mass Index [18.5-24.99] 30.05 *>HHI* (05/18/21 11:00 AM) Blood Pressure [90-138/55-84 mm Hg] 118/ 72mm Hg (05/18/21 11:00 AM) Respiratory Rate [16-30 br/min] 20 br/mi n (05/18/21 11:00 AM) Mode of Delivery (Oxygen) Room air (05/18/21 11:00 AM) Blood pressure sites Arm, right (05/18/21 11:00 AM) Weight Obtained Via Standing scale (05/18/21 11:00 AM) Social History Social History Type Response Smoking Status Former smoker; Other : Quit smoking age 35; entered on: 05/03/16 Sex
--- OUTSIDE RECORDS SUMMARY | 2023-06-02 11:01 | XMS_ITS | Continuity of Care Document ---
Author Name Unknown Organization [facility] Address [address] [place] [address]- Care Team Providers Care Mine Inspector Name Role Phone Brock Culver MD Primary Care Physician [facility] Date[facility]s): 04/[facility]21 - 05/09/21 [facility] Adult [address] [place] [address]- Attending Physician: Admtr, Ar8 Allergies, Adverse Reactions, [...] (oldterm) 03/12/07 Give n [facility] 2Result Comment: [03/05/2013] FLUVIRIN LOT # [id number] EXP 05/31/13 3Result Comment: DID NOT GET 4Result Comment: PT REFUSED 5Admin Note: [employer] [facility] 6Location History: center pharmacy [facility] Medications escitalopram 10 mg oral tablet 1 tablet = 10 mg, By Mouth, Daily, # 30 tablet, 5 Refills, Maintenance, 10/30/20 8:13:00 EDT, Tablet, [facility] #[id number], 152.4, cm, 10/13/20 7:01:00 EDT, Height Start Date: 10/30/20 Status: Ordered Flonase 50 mcg/inh nasal spray 2 sprays, Nares, Both, Daily in AM, # 16 Gm, 11 Refills, Maintenance, 11/30/20 14:56:00 EDT, [place],[facility] #[id number], Partial fill upon patient request if the prescription is for a schedule II opioid drug., 2 sprays Nares, Both Daily in AM,... Start Date: 11/30/20 Status: Ordered ZyrTEC 10 mg oral tablet 1 tablet = 10 mg, By Mouth, Daily, # 90 tablet, 3 Refills, Maintenance, 04/09/21 14:24:00 EST, Tablet, [facility] #[id number], Partial fill upon patient request if the [...] herpes simple x infection(Confirmed) Active Sinusitis(Confirmed) Active 07004 nl, repeat 2020 Procedures Procedure Date Related Diagnosis Body Site Status Colonoscopy 1 11/07/20 Completed 1repeat 2030 Social History Social History Type Response Smoking Status Former smoker; Other : Quit smoking age 35; entered on: 05/03/16 Sex
--- OUTSIDE RECORDS SUMMARY | 2023-06-02 11:01 | XMS_ITS | Continuity of Care Document ---
Author Name Unknown Organization [facility] lt Address [address] [place] [address]- Care Team Providers Care Geriatric Social Work Professor Name Role Phone Brock Culver MD Primary Care Physician [phone] Encounter [facility] Date(s): 07/30/19 - 08/29/19 [facility] Adult [address] [place] [address]- [facility] Attending Physician: Admtr, Ar8 Allergies, Adverse [...] 03/12/07 Give n 1Location History: [facility] 2Result Comment: [03/05/2013] FLUVIRIN LOT # [id number] EXP 05/31/13 3Result Comment: PT REFUSED 4Admin Note: [facility] [place] 5Location History: [facility] 6Result Comment: DID NOT GET Medications Activella oral tablet 1 tablet, By Mouth, Daily, # 28 tablet, 3 Refills Start Date: 11/03/08 Status: Ordered Azithromycin 5 Day Dose Pack 250 mg oral tablet 1 pack/packet, By Mouth, Once, # 6 tablet, 0 Refills, Soft Stop, 07/30/19 8:25:00 EDT, Tablet, [facility] #[id number], 152.4, cm, 07/30/19 8:01:00 EDT, Height Start Date: 07/30/19 Status: Ordered Diflucan 150 mg oral tablet 1 tablet = 150 mg, By Mouth, Once, # 1 tablet, 0 Refills, Soft Stop, 06/25/19 14:21:00 EDT, Tablet,[facility] #[id number], 152.4, cm, 05/13/19 7:38:00 EDT, Height Start Date: 06/25/19 Status: Ordered escitalopram 10 mg oral tablet 1 tablet = 10 mg, By Mouth, Daily, # 90 tablet, 4 Refills, Maintenance, 05/06/19 13:44:00 EST, Tablet, [facility][id number], 152.4, cm, 03/18/19 15:27:00 EST, Height Start Date: 05/06/19 Status: Ordered Nystop 271527 u/gm powder See Instructions, # 15 Gm, APPLY THIN LAYER TO THE AFFECTED AREA TWICE DAILY, [facility] #[id number] Start Date: 10/19/18 Status: Ordered predniSONE 20 mg oral tablet See Instructions, 2 tablets daily for 5 days then 1 tablet daily for 5 days, # 15 tablet, 0 Refills, Maintenance, 07/30/19 8:25:00 EDT, Tablet, [facility] #[id number], 152.4, cm, 07/30/19 8:01:00 EDT, Height Start Date: 07/30/19 Status: Ordered Singulair 10 mg oral tablet 10 mg, 1, tablet, By Mouth, Daily, # 90 tablet, Refills 1, Tot. Refills 1, Maintenance, 08/11/19 15:07:00 EDT, Route to Pharmacy Electronically, [id number], 152.4, cm, 07/30/19 8:01:00 EDT, Height Start [...] herpes simple x infection(Confirmed) Active Sinusitis(Confirmed) Active 80278 nl, repeat 2019 Social History Social History Type Response Smoking Status Former smoker; Other : Quit smoking age 35; entered on: 05/03/16 Sex
--- OUTSIDE RECORDS SUMMARY | 2023-06-02 11:01 | XMS_ITS | Continuity of Care Document ---
Author Name Unknown Organization [facility] Address [address] [place] [address]- Care Team Providers Care Life Insurance Salesperson Name Role Phone Brock Culver MD Primary Care Physician [phone] Encounter [facility] Date[facility]s): 05/13/19 - 05/20/19 [facility] Adult [address] [place] [address]- [facility] Attending Physician: Brock Culver MD [...] CENTER 2Result Comment: [03/05/2013] FLUVIRIN LOT # [id number] EXP 05/31/13 3Result Comment: PT REFUSED 4Admin Note: [facility] [place] [facility] 5Location History: [facility] 6Result Comment: DID NOT GET Medications Activella oral tablet 1 tablet, By Mouth, Daily, # 28 tablet, 3 Refills Start Date: 11/03/08 Status: Ordered escitalopram 10 mg oral tablet 1 tablet = 10 mg, By Mouth, Daily, # 90 tablet, 4 Refills, Maintenance, 05/06/19 13:44:00 EST, Tablet, [facility] #[id number], 152.4, cm, 03/18/19 15:27:00 EST, Height Start Date: 05/06/19 Status: Ordered Flagyl 250 mg oral tablet 1 tablet = 250 mg, By Mouth, 3 times a day, for 10 days, # 30 tablet, 0 Refills, Acute 05/24/19 13:16:00 EDT, 05/14/19 13:16:00 EDT, Tablet, [facility] #[id number], 152.4, cm, 05/13/19 7:38:00 EDT, Height Start Date: 05/14/19 Stop Date: 05/24/19 Status: Ordered Levaquin 500 mg oral tablet 1 tablet = 500 mg, By Mouth, Every 24 hours, for 10 days, # 10 tablet, 0 Refills, Acute 05/24/19 13:16:00 EDT, 05/14/19 13:16:00 EDT, Tablet, [email or web address] #[id number], 152.4, cm, 05/13/19 7:38:00 EDT, Height Start Date: 05/14/19 Stop Date: 05/24/19 Status: Ordered Nystop 550996 u/gm powder See Instructions, # 15 Gm, APPLY THIN LAYER TO THE AFFECTED AREA TWICE DAILY, [facility] #[id number] Start Date: 10/19/18 Status: Ordered predniSONE 20 mg oral tablet See Instructions, 2 tablets daily for 5 days then 1 tablet daily for 5 days, # 15 tablet, 0 Refills, Maintenance, 03/18/19 15:59:00 EST, Tablet, [facility] #[id number], 152.4, cm, 03/18/19 15:27:00 EST, Height Start Date: 03/18/19 Status: Ordered Singulair 10 mg oral tablet 10 mg, 1, tablet, By Mouth, Daily, # 90 tablet, Refills 3, Tot. Refills 3, Maintenance, 10/02/18 8:55:03 EDT, Route to Pharmacy Electronically, [id number], [facility] #[id number] Start Date: 10/02/18 Stop Date: 09/27/19 Status: [...] herpes simple x infection(Confirmed) Active Sinusitis(Confirmed) Active 13654 nl, repeat 2019 Vital Signs Most recent to oldest [Reference Range]: 1 Height 152.40 cm (05/13/19 7:38 AM) Weight 70.5 kg (05/13/19 7:38 AM) Oxygen Saturation [94-100 %] 98 % (05/13/19 7:38 AM) Pulse Rate [55-90 bpm] 81 bpm (05/13/19 7:38 AM) Body Mass Index [18.5-24.99] 30.35 *>HHI* (05/13/19 7:38 AM) Blood Pressure [90-138/55-84 mm Hg] 122/ 78mm Hg (05/13/19 7:38 AM) Temperature [96.8-100.4 DegF] 98.6 DegF (05/13/19 7:38 AM) Temperature Route Oral (05/13/19 7:38 AM) Social History Social History Type Response Smoking Status Former smoker; Other : Quit smoking age 35; entered on: 05/03/16 Sex
[2023-06-02 12:41] LABS: MANUAL DIFF FLAG NO
[2023-06-02 12:43] LABS: Basophils Percent Auto 0.1 % (0-2); Hematocrit 40.7 % (37.0-47.0); Hemoglobin 14.4 g/dl (12.0-16.0); Imm Gran Abs Auto 0.04 X10*3/uL (0.00-0.03); Imm Gran Pct Auto 0.5 % (0.0-0.4); Lymphocytes Percent Auto 12.9 % (20-40); Mean Corpuscular HGB Conc 35.4 g/dl (31.0-35.0); Mean Corpuscular Hemoglobin 31.7 pg (27.0-33.0); Mean Corpuscular Volume 89.6 fL (80.0-98.0); Mean Platelet Volume 9.2 fL (9.4-12.3); Monocytes Absolute Auto 0.2 X10*3/uL (0.1-1.2); Monocytes Percent Auto 2.3 % (2-11); Neutrophils Absolute Auto 6.2 x10*3/uL (2.0-8.3); Neutrophils Percent Auto 84.2 % (45-73); Platelet Count 275 X10*3/uL (160-400); Red Blood Count 4.54 X10*6/uL (4.20-5.50); Red Cell Distribution Width 12.3 % (11.0-16.0); White Blood Count 7.4 X10*3/uL (4.8-10.8)
[2023-06-02 13:00] LABS: Alanine Aminotransferase 17 U/L (0-31); Albumin Level 4.1 g/dL (3.5-5.0); Alkaline Phosphatase 71 U/L (39-117); Anion Gap 11 (12-20); Aspartate Amino Transferase 16 U/L (5-31); Bilirubin Total 0.2 mg/dL (0.0-1.0); Blood Urea Nitrogen 20 mg/dL (9-16); Calcium 9.5 mg/dL (8.4-10.2); Carbon Dioxide 25 mmol/L (22-29); Chloride 109 mmol/L (96-108); Estimated Glomerular Filt Rate > 60; Glucose Random 138 mg/dL (60-115); Potassium 4.5 mmol/L (3.3-5.1); Sodium 140 mmol/L (135-145); Total Protein 7.1 g/dL (6.5-8.0)
--- NOTE | 2023-06-02 13:12 | PC.NURSE ---
called pharmacy to bring over protonix
[2023-06-02] MEDS: Pantoprazole Sodium 40 MG/10 ML VIAL IVPUSH (13:30)
[2023-06-02] MEDS: iohexoL 350 MG/ML 100 ML INFUS..BTL 85 ML IV (13:58)
[2023-06-02 15:04] VITALS: BP 148/88; PULSE 78; RESP 16; TEMP 36.6; O2SAT 99
--- NOTE | 2023-06-02 15:07 | PC.NURSE ---
patient continues to rest on stretcher, awaiting CT scan results. No apparent distress noted at this time
[2023-06-02 15:32] VITALS: BP 123/85; PULSE 88; RESP 14; TEMP 36.6; O2SAT 99
== END 2023-06-02 15:33 | disposition home or self-care (01) ==
PROVIDERS: Physician Assistant Medical; Emergency Provider Emergency Medicine; PCP Internal Medicine
DX: S39.92XA Unspecified injury of lower back, initial encounter (principal); S13.9XXA Sprain of joints and ligaments of unspecified parts of neck, initial encounter; M54.2 Cervicalgia; R51.9 Headache, unspecified; R10.2 Pelvic and perineal pain; K62.89 Other specified diseases of anus and rectum; W01.10XA Fall on same level from slipping, tripping and stumbling with subsequent striking against unspecified object, initial encounter; Y93.9 Activity, unspecified; Y92.9 Unspecified place or not applicable; Y99.8 Other external cause status; Z79.899 Other long term (current) drug therapy
CPT/HCPCS: 36415; 70450; 72125; 72220; 74177; 80053; 85025; 96374; 99284; C9113; Q9967

== ENCOUNTER 2023-07-10 15:00 | Outpatient (RCR) | payer OTHER, SELFPAY | END 2023-10-13 07:12 | disposition home or self-care (01) | LOC: HO.PT 15:00 | PROVIDERS: PCP Nurse Practitioner Family; Visit Provider Nurse Practitioner Family | DX: M54.50 Low back pain, unspecified (principal) | CPT/HCPCS: 97014; 97110; 97140; 97161 ==

== ENCOUNTER 2023-09-13 13:07 | Emergency (ER) | payer BC, SELFPAY ==
[2023-09-13] VITALS (7 sets, daily range): BP systolic 127–145; BP diastolic 82–95; PULSE 74–87; RESP 17–18; TEMP 36.1–36.6; O2SAT 97–100; BMI 21.0
--- NOTE | ~2023-09-13 | CT_ITS ---
EXAMINATION: CT HEAD WITHOUT CONTRAST CLINICAL INFORMATION: 72-year-old female with dizziness and vomiting COMPARISON: 06/02/2023 TECHNIQUE: Contiguous axial imaging was performed from the skull base to vertex without intravenous administration of contrast. This CT examination was performed using dose optimization techniques as appropriate, variously including the following: *Automated exposure control *Adjustment of mA and/or kV according to patient size (this includes techniques or standardized protocols for targeted exams where dose is matched to indication/reason for exam; i.e. extremities or head) *Use of iterative reconstruction technique DLP: 612 mGy-cm FINDINGS: There is no evidence of acute intracranial hemorrhage or edematous territorial infarction. Robins-white matter differentiation is preserved. There is no abnormal attenuation within the brain parenchyma. The ventricles and sulci are mildly prominent and normal in morphology . No evidence for obstructive hydrocephalus. No abnormal mass effect or midline shift. No extra-axial fluid collections. No acute soft tissue or osseous abnormalities. The mastoid air cells and visualized paranasal sinuses are clear. CT/CT head/brain wo IV con IMPRESSION: 1. No evidence of acute intracranial hemorrhage or edematous territorial infarction. Mild involutional changes
--- NOTE | 2023-09-13 13:29 | ED.GENADULT ---
HPI - General Adult General Chief complaint: Dizziness Stated complaint: Vertigo/Nausea Time Seen by Provider: 09/13/23 17:27 Source: patient Mode of arrival: ambulatory Limitations: no limitations History of Present Illness ED Provider: sundeep FARRIS narrative: Patient no significant past medical history noticed sudden onset of dizziness with spinning movement started earlier today gets worse with movements of the head as he with nausea no vomiting felt off balance slight feel fullness in the left ear little bit off balance no weakness no history of similar complaints in the past Related Data Previous Rx's ?Medication ?Instructions ?Recorded cyclobenzaprine 5 mg tablet 5 mg PO TID PRN muscle spasm 7 06/02/23 days #21 tabs omeprazole 40 mg capsule,delayed 40 mg PO DAILY 7 days #7 caps 06/02/23 release meclizine 25 mg tablet 25 mg PO TID PRN dizziness #20 tabs 09/13/23 Allergies Allergy/AdvReac Type Severity Reaction Status Date / Time No Known Allergies Allergy Verified 09/13/23 13:33 [No Known Allergies*] Review of Systems Review of Systems: Yes all other systems are reviewed and are negative PMFSH Past Medical History Medical History Post-menopausal Recurrent oral herpes simplex infection Polyarthritis (03/18/19) Diverticulitis Depression Chronic cough Allergic rhinitis Acid reflux Social History Social History Smoked in Last 30 Days: No Use of substances other than those prescribed or required for medical reasons: No Advance Directives: No Advance Directives Information Provided: Yes Do you have a plan to hurt others: No Plan Physical Exam ED Vital Signs: Vital Signs - 24 hr 09/13/23 13:29 09/13/23 16:00 09/13/23 16:42 Temperature 97 F 97.7 F Pulse Rate 83 78 79 Respiratory Rate 17 17 Blood Pressure 145/86 H 135/95 H 135/95 H Pulse Oximetry 97 100 Oxygen Delivery Method Room Air 09/13/23 16:43 09/13/23 16:45 09/13/23 18:00 Temperature 97.8 F Pulse Rate 81 87 74 Respiratory Rate 18 Blood Pressure 127/94 H 140/89 H 137/82 Pulse Oximetry Oxygen Delivery Method BMI result Body Mass Index 21.0 Appearance: Alert. Oriented X3. No acute distress. Eyes: PERRLA, No Nystagmus ENT: Pharynx normal. Oral Mucosa moist Neck: Normal inspection. Neck supple. CVS: Normal heart rate and rhythm. Pulses normal. Respiratory: No respiratory distress. Equal air entry bilateral, no wheezing/rales/rhonchi Abdomen: Soft and nontender. Bowel sounds are present, no mass palpable, no CVA tenderness Skin: Skin warm and dry. Normal skin color. Normal skin turgor. Extremities: No lower extremity edema. No calf tenderness Neuro: Oriented X 3. No motor deficit. No sensory deficit.No cerebellar signs , cranial nerves II-XII intact Course Course Course Narrative: This is an RME performed by Tylor Herrera CNP: Additional HPI, ROS, PE not included below will be deferred to primary provider. Patient is a 72-year-old female who presents to the emergency department for evaluation, she states that she awoke 06:00 today, soon after having a cup of tea, she lied down and had room spinning, followed by vomiting, tingling bilateral hands. Denies any history of similar symptoms in the past. Currently having head pressure diffusely, but states not painful. Dizziness is made worse with forward bending. States a few days ago was having discomfort pressure to left side of teeth/mouth, seen by dentist and all was normal. NIH score 0, no focal deficits, ambulatory with steady gait. Plan: Labs, EKG, CT head Medications Administered Discontinued Medications Generic Name Dose Route Start Last Admin Trade Name Freq PRN Reason Stop Dose Admin Meclizine HCl 25 mg 09/13/23 18:33 09/13/23 18:41 Meclizine Hcl 25 Mg Tablet PO 09/13/23 18:34 25 mg ONCE ONE Administration Ondansetron HCl 4 mg 09/13/23 18:33 09/13/23 18:41 Ondansetron Odt 4 Mg Tab.Rapdis TRANSLINGU 09/13/23 18:34 4 mg ONCE ONE Administration Medical Decision Making Differential Diagnosis Differential Diagnoses: The differential diagnosis associated with the presentation includes BPPV/cerebellar stroke/metabolic abnormality Lab Data MDM Lab Attestation statement: I reviewed the patient's lab results. 09/13/23 13:49 09/13/23 13:49 Labs: Lab Results 09/13/23 Range/Units 13:49 WBC 7.7 (4.8-10.8) X10*3/uL RBC 4.58 (4.20-5.50) X10*6/uL Hgb 14.7 (12.0-16.0) g/dl Hct 40.2 (37.0-47.0) % MCV 87.8 (80.0-98.0) fL MCH 32.1 (27.0-33.0) pg MCHC 36.6 H (31.0-35.0) g/dl RDW 12.1 (11.0-16.0) % Plt Count 272 (160-400) X10*3/uL MPV 9.3 L (9.4-12.3) fL Immature Gran % (Auto) 0.3 (0.0-0.4) % Neut % (Auto) 79.7 H (45-73) % Lymph % (Auto) 16.1 L (20-40) % [place] % (Auto) 3.5 (2-11) % Eos % (Auto) 0.1 (0-4) % Baso % (Auto) 0.3 (0-2) % Lymph # (Auto) 1.2 (1.2-4.9) X10*3/uL [place] # (Auto) 0.3 (0.1-1.2) X10*3/uL Eos # (Auto) 0.0 (0.0-0.4) X10*3/uL Baso # (Auto) 0.0 (0.0-0.2) X10*3/uL Abs Immat Gran (auto) 0.02 (0.00-0.03) X10*3/uL Absolute Neuts (auto) 6.1 (2.0-8.3) x10*3/uL Absolute Nucleated RBC 0.000 (0.0-0.012) X10*3/uL Nucleated RBC % (auto) 0.0 (0.0-0.2) /100WBC Sodium 138 (135-145) mmol/L Potassium 4.0 (3.3-5.1) mmol/L Chloride 107 (96-108) mmol/L Carbon Dioxide 23 (22-29) mmol/L Anion Gap 12 (12-20) BUN 16 (9-16) mg/dL Creatinine 0.79 (0.5-1.4) mg/dL Estim Creat Clear Calc 67.6 Estimated GFR > 60 Random Glucose 118 H (60-115) mg/dL Calcium 9.6 (8.4-10.2) mg/dL Magnesium 2.2 (1.6-2.6) mg/dL Total Bilirubin 0.7 (0.0-1.0) mg/dL AST 15 (5-31) U/L ALT 16 (0-31) U/L Alkaline Phosphatase 82 (39-117) U/L Troponin I High Sens < 2.7 (<3.5-17.0) ng/L Total Protein 7.1 (6.5-8.0) g/dL Albumin 4.4 (3.5-5.0) g/dL Influenza Type A (PCR) NEGATIVE (Negative) Influenza Type B (PCR) NEGATIVE (Negative) RSV RNA Qual (PCR) NEGATIVE (Negative) SARS-CoV-2 RNA (RT-PCR) NEGATIVE (Negative) Independent Interpretation I performed an independent interpretation of an: EKG and CT Scan Interpretation: Normal sinus rhythm heart rate 84 beats per minute normal interval normal axis no acute ST-T changes no acute ischemia Radiology Impression Discussion of test interpretation with radiology: I have reviewed the radiologist's reading. Discharge Plan Discharge Clinical Impression: Benign paroxysmal positional vertigo Patient Disposition: Home, Self-Care Instructions: Benign Paroxysmal Positional Vertigo (ED) Additional Instructions: Care and cautions as advised Take meclizine 1 tablet every 8 hours as needed for dizziness Follow with your PCP if not better Prescriptions: New meclizine 25 mg tablet 25 mg PO TID PRN (Reason: dizziness) Qty: 20 0RF No Action omeprazole 40 mg capsule,delayed release(DR/EC) 40 mg PO DAILY 7 Days Qty: 7 0RF cyclobenzaprine 5 mg tablet 5 mg PO TID PRN (Reason: muscle spasm) 7 Days Qty: 21 0RF Print Language: Icelandic
--- NOTE | 2023-09-13 13:32 | ECG_ITS ---
Test Reason : dizziness Blood Pressure : / mmHG Vent. Rate : 084 BPM Atrial Rate : 084 BPM P-R Int : 162 ms QRS Dur : 078 ms QT Int : 400 ms P-R-T Axes : 026 012 168 degrees QTc Int : 472 ms Normal sinus rhythm Nonspecific ST and T wave abnormality Abnormal ECG When compared with ECG of 25-MAR-2012 01:01, Nonspecific T wave abnormality, worse in Lateral leads Referred By: Inna Herrera Electronically Signed By:Sulaiman Bell
[2023-09-13 13:53] LABS: MANUAL DIFF FLAG NO
[2023-09-13 14:04] LABS: Basophils Percent Auto 0.3 % (0-2); Eosinophils Percent Auto 0.1 % (0-4); Hematocrit 40.2 % (37.0-47.0); Hemoglobin 14.7 g/dl (12.0-16.0); Imm Gran Abs Auto 0.02 X10*3/uL (0.00-0.03); Imm Gran Pct Auto 0.3 % (0.0-0.4); Lymphocytes Absolute Auto 1.2 X10*3/uL (1.2-4.9); Lymphocytes Percent Auto 16.1 % (20-40); Mean Corpuscular HGB Conc 36.6 g/dl (31.0-35.0); Mean Corpuscular Hemoglobin 32.1 pg (27.0-33.0); Mean Corpuscular Volume 87.8 fL (80.0-98.0); Mean Platelet Volume 9.3 fL (9.4-12.3); Monocytes Absolute Auto 0.3 X10*3/uL (0.1-1.2); Monocytes Percent Auto 3.5 % (2-11); Neutrophils Absolute Auto 6.1 x10*3/uL (2.0-8.3); Neutrophils Percent Auto 79.7 % (45-73); Platelet Count 272 X10*3/uL (160-400); Red Blood Count 4.58 X10*6/uL (4.20-5.50); Red Cell Distribution Width 12.1 % (11.0-16.0); White Blood Count 7.7 X10*3/uL (4.8-10.8)
[2023-09-13 14:11] LABS: Alanine Aminotransferase 16 U/L (0-31); Albumin Level 4.4 g/dL (3.5-5.0); Alkaline Phosphatase 82 U/L (39-117); Anion Gap 12 (12-20); Aspartate Amino Transferase 15 U/L (5-31); Bilirubin Total 0.7 mg/dL (0.0-1.0); Blood Urea Nitrogen 16 mg/dL (9-16); Calcium 9.6 mg/dL (8.4-10.2); Carbon Dioxide 23 mmol/L (22-29); Chloride 107 mmol/L (96-108); Creatinine Clr Calc Pharmacy 67.6; Estimated Glomerular Filt Rate > 60; Glucose Random 118 mg/dL (60-115); Magnesium 2.2 mg/dL (1.6-2.6); Sodium 138 mmol/L (135-145); Total Protein 7.1 g/dL (6.5-8.0)
[2023-09-13 14:32] LABS: Influenza A PCR NEGATIVE (Negative); Influenza B PCR NEGATIVE (Negative); Resp Syncy Virus RNA Qual PCR NEGATIVE (Negative); SARS COV2 PCR INHOUSE NEGATIVE (Negative)
[2023-09-13 14:33] LABS: Troponin-I High Sensitivity < 2.7 ng/L (<3.5-17.0)
--- NOTE | 2023-09-13 16:45 | PC.NURSE ---
Pt comes from home for dizziness along with nausea since this morning. Pt states she feels as though the room is spinning and she can't keep any food/liquids down. Pt was laying in bed this morning when the dizziness started. She states she has never had this before and it's unusual for her. Denies cp/sob/diarrhea. Does state she has a headache, was at [employer] last night watching a concert, states she had fried foods but this doesn't trigger nausea in her. Equal strength bilaterally, neuros intact, speaking in clear sentences. Pt a/ox4, respirations even and unlabored, lung sounds cta bilaterally, s1 and s2 heard, abdomen soft and non-tender. Call peña within reach, awaiting further orders at this time.
--- NOTE | 2023-09-13 17:21 | MHC.EDTECH ---
pt vomitted on the bed, RN notified, call peña within reach.
[2023-09-13] MEDS: Ondansetron ODT 4 MG TAB.RAPDIS TRANSLINGU (18:41)
[2023-09-13] MEDS: Meclizine HCl 25 MG TABLET PO (18:41)
== END 2023-09-13 19:00 | disposition home or self-care (01) ==
PROVIDERS: Nurse Practitioner Family; Emergency Provider Internal Medicine
DX: H81.10 Benign paroxysmal vertigo, unspecified ear (principal); R05.3 Chronic cough; Z03.818 Encounter for observation for suspected exposure to other biological agents ruled out
CPT/HCPCS: 0241U; 36415; 70450; 80053; 83735; 84484; 85025; 93005; 99284; 99285

== ENCOUNTER → 2023-09-13 13:32 | Outpatient (BNV) | payer BC, SELFPAY | PROVIDERS: Emergency Provider Internal Medicine; Visit Provider Internal Medicine Cardiovascular Disease | DX: R94.31 Abnormal electrocardiogram [ECG] [EKG] (principal) | CPT/HCPCS: 93010 ==

== ENCOUNTER 2024-08-04 12:51 | Outpatient (AMB) | payer BC, SELFPAY ==
[2024-08-04 12:59] VITALS: BP 122/78; PULSE 77; O2SAT 97; BMI 30.3
--- NOTE | 2024-08-04 12:59 | A.OFFVIS_ITS ---
Vital Signs 08/04/24 12:59 Height 4 ft 11 in Weight 150 lb BMI 30.3 BP 122/78 Blood Pressure Location Rt brachial Position Sitting Pulse 77 Pulse Source Pulse Oximeter Pulse Oximetry (%) 97 Oxygen Delivery Method Room Air Intake Visit Reasons: Cough Allergies No Known Allergies [No Known Allergies*] Allergy (Verified 08/04/24 13:03) HPI HPI Cough: Details: 73-year-old lady, remote 10 pack-year smoker, recently seen by [facility] pulmonary for recurrent productive cough, most recently treated with 2 week course of doxycycline and amoxicillin with resolution. Patient denies family history of lung disease or exposure to industrial dusts. She previously been employed as a teacher. Patient does have underlying seasonal allergies that usually well controlled on Zyrtec. Previously tried on albuterol MDI, prednisone, omeprazole with no significant improvement. Recent normal pulmonary function test at [facility] and CT chest essentially normal, except mild peripheral interstitial scarring. [facility] Medical History Post-menopausal Recurrent oral herpes simplex infection Polyarthritis (03/18/19) Diverticulitis Depression Chronic cough Allergic rhinitis Acid reflux Social History (Updated 08/04/24 @ 13:08 by YADIRA Chen) Patient Tobacco Use Status: Never used Tobacco Review of Systems Const Denies daytime sleepiness, Denies excessive sweating, Denies fatigue, Denies fever(s), Denies lethargy, Denies malaise, Denies night sweats, Denies snoring and Denies weight loss Eyes Denies blurry vision and Denies itchy eyes ENT Denies nasal congestion, Denies post nasal drip, Denies sinus pain, Denies sinus pressure and Denies other ( Thrush) Card Denies chest pain, Denies pedal edema, Denies dyspnea, Denies orthopnea and Denies paroxysmal nocturnal dyspnea Resp Denies cough, Denies hemoptysis, Denies excessive phlegm production, Denies dyspnea, Denies snoring and Denies wheezing GI Denies abdominal pain and Denies heartburn Musc Denies myalgias, Denies arthralgias and Denies joint swelling Skin/Breast Denies rash Neuro Denies memory loss and Denies seizure-like activity Psych Denies abnormal sleep pattern, Denies anxiety and Denies memory loss Endo Denies excessive sweating, Denies fatigue and Denies heat intolerance Oscar/Lymph Denies easy bruising Aller/Immun Denies itchy eyes, Denies seasonal rhinorrhea and Denies wheezing Physical Exam Vital Signs: Last Vital Signs Pulse 77 08/04/24 12:59 BP 122/78 08/04/24 12:59 Pulse Ox 97 08/04/24 12:59 Oxygen Delivery Method Room Air 08/04/24 12:59 BMI result Body Mass Index 30.3 Const General: no acute distress and alert Nutritional Appearance: not obese Orientation/consciousness: Other orientation findings ( oriented) HEENT Head: Yes atraumatic Eyes General: appearance normal, both eyes and all related structures Sclerae: sclerae normal EOM: EOMs intact bilaterally Neck Neck: Yes supple Lymphatic: no lymphadenopathy noted Resp Effort & Inspection: normal respiratory effort and no use of accessory muscles Auscultation: clear to auscultation bilaterally Cardio Rate: regular rate Rhythm: regular rhythm Heart sounds: no gallops, no murmurs and no rubs Skin General skin exam: other ( warm) Extrem General: No clubbing, No cyanosis and No edema Assessment & Plan Assessment & Plan (1) Recurrent cough: Code(s): R05.8 - Other specified cough Category: Medical Plan: At this time with abatement of recurrent symptoms. Coding Level of Care Code New Pt Level 3 (70437) Diagnoses Recurrent cough R05.8
--- OUTSIDE RECORDS SUMMARY | 2024-08-04 13:16 | XMS_ITS | Clinical Summary ---
Author Organization [facility] 299 [facility] Address [address] [place] [address] Phone Care Team Providers Care Executive Secretary Name Role Phone Junie Salinas VEGETABLE THINNER Primary Care Provider Allergies No known active allergies Medications spironolactone (ALDACTONE) 50 mg tablet Take 1 tablet (50 mg total) by mouth daily. 08/08/2023 Active estradioL (ESTRACE) 1 mg tablet Take 1 tablet (1 mg total) by mouth 1 (one) time each day. with food Active atorvastatin (LIPITOR) 20 mg tablet Take 1 tablet (20 mg total) by mouth. 12/16/2023 Active Surgical History Surgery Date Site/Laterality Comments COLONOSCOPY 11/07/2020 nl with tics, hemorrhoids Medical History Medical History Date Comments GERD (gastroesophageal reflux disease) Hyperlipidemia Chronic cough IBS (irritable bowel syndrome) Diverticulitis large intestine 06/2020 Allergies Family History Medical History Relation Name Comments Lung cancer Father Colon cancer Neg Hx Colonic polyp Neg Hx Relation Name Status Comments Father Social History Tobacco Use Types Packs/Day Years Used Date Smoking Tobacco: Never Smokeless Tobacco: Never Tobacco Cessation:Counseling Given: Not Answered Alcohol Use Standard Drinks/Week Comments Never 0 (1 standard drink = 0.6 oz pur e alcohol) Comments Unknown Sex and Gender Information Value Date Recorded Sex Assigned at Not on file Legal Sex Female 7:01 AM EST Gender Identity Not on file Sexual Orientation Not on file Occupation Industry Job Start Date Job End Date retired clerical aide teacher Not on file Not on file Not o n file Obstetrics History Last Filed Vital Signs Vital Sign Reading Time Taken Comments Blood Pressure - - Pulse - - Temperature - - Respiratory Rate - - Oxygen Saturation - - Inhaled Oxygen Concentration - - Weight 68 kg (150 lb) 03/09/2024 8:33 AM EST Height 149.9 cm (4' 11 ) 03/09/2024 8:33 AM EST Body Mass Index 30.3 03/09/2024 8:33 AM EST Plan of Treatment Health Maintenance Due Date Last Done Comments Breast Cancer Screening 1950 Zoster Vaccines (2 of 3) 04/29/2011 03/04/2011 COVID-19 Vaccine ( season) 2023 02/04/2023, 01/02/2022, 07/13/2021, Additional history exists Cholesterol Screening (Lipid Panel) 12/20/2023 Depression Screening 12/20/2023 Falls Risk Assessment 12/20/2023 Hepatitis C Screening 12/20/2023 Medicare Annual Wellness Visit 12/20/2023 Osteoporosis Screening (Bone Density Screening) 12/20/2023 Social Influencers of Health Screening 12/20/2023 RSV Immunization Adult Patients (1 - 1-dose 75+ series) 2025 DTaP,Tdap,and Td Vaccines (2 - Td or Tdap) 04/18/2027 04/18/2017 Colorectal Cancer Screening: Colonoscopy 11/07/2030 11/07/2020 Hepatitis A Vaccines Aged Out 04/18/2017 No long er eligible based on patient's age to complete this topic Pneumococcal Vaccine: 50+ Years Completed 04/18/2017, 05/03/2016 Influenza Vaccine Completed 01/16/2024, , 12/18/2021, Additional history exists HIB Vaccines Aged Out No longer eligi ble based on patient's age to complete this topic HPV Vaccines Aged Out No longer eligi ble based on patient's age to complete this topic Hepatitis B Vaccines Aged Out No long er eligible based on patient's age to complete this topic IPV Vaccines Aged Out No longer eligi ble based on patient's age to complete this topic MMR Vaccines Aged Out No longer eligi ble based on patient's age to complete this topic Meningococcal ACWY Vaccine Aged Out N o longer eligible based on patient's age to complete this topic Meningococcal B Vaccine Aged Out No l onger eligible based on patient's age to complete this topic RSV Immunization Patients Under 20 months Aged Out No longer eligible based on patient's age to complete this topic Varicella Vaccines Aged Out No longer eligible based on patient's age to complete this topic Procedures Procedure Name Priority Date/Time Associated Diagnosis Comments COLONOSCOPY Routine 11/07/2020 1:09 PM EDT from Last 3 Months or Most Recently Relevant to Health Maintenance Results * COLONOSCOPY (11/07/2020 1:09 PM EDT) Anatomical Region Laterality Modality Endoscopy Historical Provider GI~PROCEDURE ORDERABLES F inal Result from Last 3 Months or Most Recently Relevant to Health Maintenance Insurance MEDICARE [facility] Care Teams Executive Secretary Relationship Specialty Start Date End Date Junie Salinas NP [address] [place] [address] PCP - General Family Medicine 03/09/24
== END 2024-08-04 13:33 | disposition home or self-care (01) ==
LOC: HO.HPS 12:52
PROVIDERS: PCP Nurse Practitioner Family; Referring Provider Internal Medicine; Visit Provider Internal Medicine Pulmonary Disease
DX: R05.8 Other specified cough (principal)
CPT/HCPCS: 99203

== ENCOUNTER → 2024-08-04 12:51 | Outpatient (BNVA) | payer BC, SELFPAY | PROVIDERS: PCP Nurse Practitioner Family; Referring Provider Internal Medicine; Visit Provider Internal Medicine Pulmonary Disease | DX: Z13.89 Encounter for screening for other disorder (principal) ==

== ENCOUNTER 2024-08-13 14:35 | Outpatient (AMB) | payer BC, SELFPAY ==
[2024-08-13 14:38] VITALS: BP 109/62; PULSE 87; O2SAT 99; BMI 30.1
--- NOTE | 2024-08-13 14:38 | A.OFFVIS_ITS ---
Vital Signs 08/13/24 14:38 Height 4 ft 11 in Weight 148 lb 12.992 oz BMI 30.1 BP 109/62 Blood Pressure Location Lt brachial Position Sitting Pulse 87 Pulse Source Pulse Oximeter Pulse Oximetry (%) 99 Oxygen Delivery Method Room Air Intake Visit Reasons: cough Allergies No Known Allergies [No Known Allergies*] Allergy (Verified 08/04/24 13:03) HPI HPI cough: Details: 73-year-old lady, remote 10 pack-year smoker, recently seen by [facility] pulmonary for recurrent productive cough, most recently treated with 2 week course of doxycycline and amoxicillin with resolution. Patient denies family history of lung disease or exposure to industrial dusts. She previously been employed as a teacher. Patient does have underlying seasonal allergies that usually well controlled on Zyrtec. Previously tried on albuterol MDI, prednisone, omeprazole with no significant improvement. Recent normal pulmonary function test at [facility] and CT chest essentially normal, except mild peripheral interstitial scarring. Today patient presents compliant recurrent cough symptom now productive of whitish slimy sputum. [facility] Medical History Post-menopausal Recurrent oral herpes simplex infection Polyarthritis (03/18/19) Diverticulitis Depression Chronic cough Allergic rhinitis Acid reflux Social History (Updated 08/04/24 @ 13:08 by YADIRA Chen) Patient Tobacco Use Status: Never used Tobacco Review of Systems Const Denies daytime sleepiness, Denies excessive sweating, Denies fatigue, Denies fever(s), Denies lethargy, Denies malaise, Denies night sweats, Denies snoring and Denies weight loss Eyes Denies blurry vision and Denies itchy eyes ENT Denies nasal congestion, Denies post nasal drip, Denies sinus pain, Denies sinus pressure and Denies other ( Thrush) Card Denies chest pain, Denies pedal edema, Denies dyspnea, Denies orthopnea and Denies paroxysmal nocturnal dyspnea Resp Reports cough, Denies hemoptysis, Reports excessive phlegm production, Denies dyspnea, Denies snoring and Denies wheezing GI Denies abdominal pain and Denies heartburn Musc Denies myalgias, Denies arthralgias and Denies joint swelling Skin/Breast Denies rash Neuro Denies memory loss and Denies seizure-like activity Psych Denies abnormal sleep pattern, Denies anxiety and Denies memory loss Endo Denies excessive sweating, Denies fatigue and Denies heat intolerance Oscar/Lymph Denies easy bruising Aller/Immun Denies itchy eyes, Denies seasonal rhinorrhea and Denies wheezing Physical Exam Vital Signs: Last Vital Signs Pulse 87 08/13/24 14:38 BP 109/62 08/13/24 14:38 Pulse Ox 99 08/13/24 14:38 Oxygen Delivery Method Room Air 08/13/24 14:38 BMI result Body Mass Index 30.1 Const General: no acute distress and alert Nutritional Appearance: not obese Orientation/consciousness: Other orientation findings ( oriented) HEENT Head: Yes atraumatic Eyes General: appearance normal, both eyes and all related structures Sclerae: sclerae normal EOM: EOMs intact bilaterally Neck Neck: Yes supple Lymphatic: no lymphadenopathy noted Resp Effort & Inspection: normal respiratory effort and no use of accessory muscles Auscultation: clear to auscultation bilaterally Cardio Rate: regular rate Rhythm: regular rhythm Heart sounds: no gallops, no murmurs and no rubs Skin General skin exam: other ( warm) Extrem General: No clubbing, No cyanosis and No edema Assessment & Plan Assessment & Plan (1) Recurrent cough: Code(s): R05.8 - Other specified cough Category: Medical Plan: Will obtain sputum/AFB/fungal culture. Orders: Orders Sputum Cult + Gram stain Today R05.8 - Other specified cough Fungus Cult Other Today R05.8 - Other specified cough Acid-fast Culture + Smear Today R05.8 - Other specified cough Coding Level of Care Code Est Pt Level 3 (60566) Diagnoses Recurrent cough R05.8
--- OUTSIDE RECORDS SUMMARY | 2024-08-13 14:39 | XMS_ITS | Clinical Summary ---
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
== END 2024-08-13 14:56 | disposition home or self-care (01) ==
LOC: HO.HPS 14:37
PROVIDERS: PCP Nurse Practitioner Family; Visit Provider Internal Medicine Pulmonary Disease
DX: R05.8 Other specified cough (principal)
CPT/HCPCS: 99213

== ENCOUNTER → 2024-08-13 14:35 | Outpatient (BNVA) | payer BC, SELFPAY | PROVIDERS: PCP Nurse Practitioner Family; Visit Provider Internal Medicine Pulmonary Disease | DX: Z13.89 Encounter for screening for other disorder (principal) ==

== ENCOUNTER 2024-08-20 09:56 | Outpatient (REF) | payer BC, SELFPAY ==
--- OUTSIDE RECORDS SUMMARY | 2024-08-20 10:12 | XMS_ITS | Clinical Summary ---
Author Organization [facility] 299 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
== END 2024-08-20 09:57 | disposition home or self-care (01) ==
LOC: HO.LNP 09:56
PROVIDERS: Visit Provider Internal Medicine Pulmonary Disease
DX: R05.8 Other specified cough (principal)
CPT/HCPCS: 87070; 87102; 87106; 87116; 87205; 87206

== ENCOUNTER 2024-09-23 09:44 | Outpatient (REF) | payer BC, SELFPAY ==
--- OUTSIDE RECORDS SUMMARY | 2024-09-23 10:21 | XMS_ITS | Clinical Summary ---
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 on file Not on file [...] history exists Cholesterol Screening (Lipid Panel) 12/20/2023 Falls Risk Assessment 12/20/2023 Hepatitis C Screening 12/20/2023 Medicare Annual Wellness Visit 12/20/2023 Osteoporosis Screening (Bone Density Screening) 12/20/2023 Social Influencers of Health Screening 12/20/2023 Depression Screening 03/03/2024 Influenza Vaccine (#1) 2024 , 01/13/2023, 12/18/2021, Additional history exists RSV Immunization Adult Patients (1 - 1-dose 75+ series) 2025 DTaP,Tdap,and Td Vaccines (2 - Td or Tdap) 04/18/2027 04/18/2017 Colorectal Cancer Screening: Colonoscopy 11/07/2030 11/07/2020 Hepatitis A Vaccines Aged Out 04/18/2017 No long er eligible based on patient's age to complete this topic Pneumococcal Vaccine: 50+ Years Completed 04/18/2017, 05/03/2016 HIB Vaccines Aged Out No longer eligi [...] PM EDT) Anatomical Region Laterality Modality Endoscopy us Historical Provider GI~PROCEDURE ORDERABLES F inal Result from Last 3 Months or Most Recently Relevant to Health Maintenance Insurance MEDICARE [facility] Care Teams Dog Control Officer Relationship Specialty Start Date End Date Junie Salinas NP [address] [place] [address] PCP - General Family Medicine 03/09/24
--- OUTSIDE RECORDS SUMMARY | 2024-09-23 10:21 | XMS_ITS | Patient Health Record ---
Author Organization [facility] Address [address] [facility] [address] [place] [address] Care Team Providers Care Fine Arts Packer Name Role Phone AUDREY SANFORD Primary Care Provider Jennifer Burris Unavailable [phone] Reason For Referral No Information Medications Medication SIG (Take, Route, Frequency, Duration) Notes Start Date End Date Status Montelukast Sodium 10 MG TK 1 T PO D Ora l; Duration: 90 Active Spironolactone 25 MG TK 1 T PO BID Oral; Duration: 30 Active Estradiol 1 MG TAKE 1 TABLET BY MOUTH ONCE A DAY, 6 OF 7 DAYS; Duration: 90 Active Multivitamins 1 ORAL daily; Duration: -3 [facility] 08/28/2012 Active Provera 5 MG 1 tablet Orally Once a day; Duration: 90 Active Tretinoin 0.1 % KYLIE PEA SIZED AMT EX T TO FACE QHS External; Duration: 20 Active Adapalene 0.1 % APPLY SPARINGLY TO UPPER LIP HS FOR SUN DAMAGE External; Duration: 30 Active medroxyPROGESTERone Acetate 5 MG TAKE 1 TABLET BY MOUTH ONCE A DAY WITH FOOD, 6 OF 7 DAYS; Duration: 90 Active Vitamin C 500MG 1 ORAL occ [facility] 08/28/2012 Ac tive Vitamin E 400 UNIT 1 capsule Orally Onc e a day Active Provera 5 MG 1 tablet Orally GEOVANI Y 6 OF 7 DAYS; Duration: 90 days 02/18/2020 Active Escitalopram Oxalate 10 MG 1 tablet Oral ly Once a day Active Social History Tobacco Use: Social History Observation Description Date Details (start date - stop date) Never Smoker NA - NA Tobacco Use/Smoking Question Answer Notes Are you a nonsmoker Alcohol Screen (Audit-C) Question Answer Notes Did you have a drink contain ing alcohol in the past year? Yes How often did you have a dri nk containing alcohol in the past year? Monthly or less (1 point) How many drinks did you have on a typical day when you were drinking in the past year? 1 or 2 drinks (0 point) Points 1 Interpretation Negative Problems Problem Type SNOMED Code ICD Code Onset Dates Problem Status W/U Status Risk Notes Problem Menopausal symptom (72315220) Symptomatic menopausal or female climacteric states (627.2) Active confirmed Major Problem Gynecological examination normal (408487408808374) Routine gynecological examination (V72.31) Active confirmed Major Problem Family history of malignant neoplasm of ovary (832046002) Family history of malignant neoplasm, ovary (V16.41) Active confirmed Diag Problem Special screenin g for malignant neoplasms, colon (V76.51) Active confirmed Major Plan Of Treatment Pending Test Test Name Order Date Ultrasound : Breast, left 06/29/2014 MAMMOGRAM, SCREENING 01/05/2020 MAMMOGRAM, SCREENING 06/29/2014 MAMMOGRAM, SCREENING 07/24/2015 Urinalysis 09/15/2018 Urinalysis 06/29/2014 DIAGNOSTIC MAMMOGRAM, LEFT BREAST 2014 THIN PREP,HPV,JENNIFER IF HPV+ (>29YR)(SCRN) 08/28/2017 MM Digital Mammo Screening 01/05/2020 Left Breast Ultrasound 01/05/2020 Insurance Providers Payer Name Payer Address Payer Phone Subscriber Number Group Number Insured Name Patient Relationship to Insured Coverage Start Date Coverage End Date [facility] [address] [place] [address] [id number] ZEE MCFARLANE Self - patient is the insured Medical (General) History Medical History History ICD Code Menopausal and female climacteric states N95.1 Family history of malignant neoplasm of ovary Z80.41 Unspecified lump in breast N63 Hormone replacement therapy (postmenopau braeden) Z79.890 Postmenopausal bleeding N95.0 Inconclusive mammogram R92.2 Solitary cyst of left breast N60.02 Unspecified hemorrhoids K64.9 Surgical History Surgery Date(Month/Year) Colonoscopy Dialation & Curettage Tonsillectomy Hospitalization History Reason Date(Month/Year) 2 Vaginal Deliveries See Surgical Hx
--- OUTSIDE RECORDS SUMMARY | 2024-09-23 10:21 | XMS_ITS | Clinical Summary ---
Author Organization [facility] Address [address] [facility] [address] [place] [address] Phone Care Team Providers Care Behavior Analyst Name Role Phone Junie Salinas FIBERGLASS PRODUCT TESTER Primary Care Provider Allergies No known active allergies Medications estrogens, conjugated (CONJUGATED ESTROGENS, BULK, MISC) daily. 06/17/2023 Active fluticasone propionate (FLONASE) 50 mcg/actuation nasal spray 1 spray by Nasal route daily. Active medroxyPROGESTE Griffin (PROVERA) 5 MG tablet Take 5 mg by mouth daily. with food Active omeprazole (PRILOSEC) 20 MG capsule Take 20 mg by mouth daily. 08/14/2023 Active sodium fluoride-potass ium nitrate (PREVIDENT 5000 SENSITIVE) 1.1-5 % Pste Use as directed in the mouth or throat. 08/18/2023 Active spironolactone (ALDACTONE) 50 MG tablet Take 50 mg by mouth daily. 08/08/2023 Active triamcinolone acetonide 0.025 % cream 08/21/2023 Active Active Problems No known active problems Social History Tobacco Use Types Packs/Day Years Used Date Smoking Tobacco: Former Cigarettes Smokeless Tobacco: Never Tobacco Cessation:Counseling Given: Not Answered Education Answer Date Recorded Are you interested in more education? Not on carlitos e 06/28/2022 Are you concerned about learning? Not on file 06/28/2022 No 06/28/2022 No 06/28/2022 Digital Access Answer Date Recorded No 07/27/2022 No 07/27/2022 Reliable internet access at home? Not on file 07/27/2022 Device with a working camera? Not on file Comments Unknown Sex and Gender Information Value Date Recorded Sex Assigned at Not on file Legal Sex Female 8:58 AM EST Gender Identity Not on file Sexual Orientation Not on file Last Filed Vital Signs Vital Sign Reading Time Taken Comments Blood Pressure 132/88 09/27/2023 10:47 AM EDT Pulse 85 09/27/2023 10:47 AM EDT Temperature 37.2 C (98.9 F) 09/27/2023 10:47 AM EDT Respiratory Rate 16 09/27/2023 10:47 AM EDT Oxygen Saturation 98% 09/27/2023 10:47 AM EDT Inhaled Oxygen Concentration - - Weight 63.5 kg (140 lb) 09/27/2023 10:47 AM EDT Height 149.9 cm (4' 11 ) 09/27/2023 10:47 AM EDT Body Mass Index 28.28 09/27/2023 10:47 AM EDT Plan of Treatment Health Maintenance Due Date Last Done Comments Adult Td,Tdap Booster 1950 LIPID PANEL 1950 POTASSIUM LEVEL 1950 DEPRESSION SCREENING 1962 SMOKING Hx and SMOKELESS TOBACCO SCREENING 11/30/1963 HEPATITIS C SCREENING 1968 MAMMOGRAM 1990 COLOGUARD 11/30/1995 COLONOSCOPY 11/30/1995 COLORECTAL CANCER SCREENING 11/30/1995 FIT TEST 11/30/1995 FOBT 11/30/1995 SIGMOIDOSCOPY 11/30/1995 VIRTUAL COLONOSCOPY 11/30/1995 PNEUMOCOCCAL VACCINES (50+ years) (1 of 1 - PCV) 2000 ZOSTER VACCINES (1 of 2) 2000 OSTEOPOROSIS SCREENING INITIAL (ONE-TIME) 11/30/2015 COVID-19 VACCINE ( season) 2023 02/04/2023, 01/02/2022, 07/13/2021, Additional history exists RSV VACCINE (1 - 1-dose 75+ series) 2025 HEPATITIS A VACCINES Aged Out No long er eligible based on patient's age to complete this topic HIB VACCINES Aged Out No longer eligi ble based on patient's age to complete this topic MENINGOCOCCAL VACCINES (ACWY) Aged Out No longer eligible based on patient's age to complete this topic MENINGOCOCCAL VACCINES (B) Aged Out N o longer eligible based on patient's age to complete this topic Medical Devices Not on file Insurance [facility] Member Subscriber Plan / Payer (Ef fective 2023-Present) Name:RylandTari sapp Relation to Subscriber:Self Name:Tari Marcelino Payer ID:Not on file Type:PPO Address: [address] [facility] S Member Subscriber Plan / Payer (Ef fective 2023-Present) Name:Tari Marcelino Relation to Subscriber:Self Name:Tari Marcelino Payer ID:Not on file Type:PPO Address: [address] [facility] Care Teams Behavior Analyst Relationship Specialty Start Date End Date Junie Salinas NP [address] [place] [id number] PCP - General Nurse Practitioner 08/26/23 Additional Source Comments The information contained in this document represents components of the legal health record. It is not the complete legal health record.[facility]
--- OUTSIDE RECORDS SUMMARY | 2024-09-23 10:22 | XMS_ITS | Patient Health Record ---
Author Organization [facility] Address [address] [place] [address] Care Team Providers Care Helmet Coverer Name Role Phone Brock Culver MD Primary Care Provider Kellen Dowling Unavailable [phone] Allergies Allergen (clinical drug ingredient) Drug/Non Drug Allergy documented on EMR Reaction Allergy Type Onset Date Status seasonal allergies Unknown Drug Allergy Active Reason For Referral No Information Medications Medication SIG (Take, Route, Frequency, Duration) Notes Start Date End Date Status Estradiol Active Multivitamin Active Progesterone Active Vitamin D Active Social History Tobacco use other than smoking: Question Answer Notes Are you an other tobacco user? No Problems No Known Problems Plan Of Treatment Pending Test Test Name Order Date [id number] Destruction, 1-14 08/31/2015- Ganglion Cyst Injection/Aspiratio n 12/15/2015 Insurance Providers Payer Name Payer Address Payer Phone Subscriber Number Group Number Insured Name Patient Relationship to Insured Coverage Start Date Coverage End Date [facility] [address] [place] [address] [phone] [id number] Jose Marcelino Other Medical (General) History Medical History History ICD Code Chicken pox
== END 2024-09-23 09:45 | disposition home or self-care (01) ==
LOC: HO.LNP 09:44
PROVIDERS: Visit Provider Internal Medicine Pulmonary Disease
DX: R05.8 Other specified cough (principal)
CPT/HCPCS: 87070; 87116; 87205; 87206

== ENCOUNTER 2024-10-07 13:51 | Outpatient (AMB) | payer BC, SELFPAY ==
[2024-10-07 13:53] VITALS: BP 117/78; PULSE 96; O2SAT 98; BMI 29.3
--- NOTE | 2024-10-07 13:53 | MHC.OFFVIS ---
Vital Signs 10/07/24 13:53 Height 4 ft 11 in Weight 145 lb BMI 29.3 BP 117/78 Blood Pressure Location Rt brachial Position Sitting Pulse 96 Pulse Source Pulse Oximeter Pulse Oximetry (%) 98 Oxygen Delivery Method Room Air Intake Visit Reasons: Recurrent cough Allergies No Known Allergies (No Known Allergies*) Allergy (Verified 08/04/24 13:03) HPI HPI Recurrent cough: Details: 73-year-old lady, remote 10 pack-year smoker, recently seen by [facility] pulmonary for recurrent productive cough, most recently treated with 2 week course of doxycycline and amoxicillin with resolution. Patient denies family history of lung disease or exposure to industrial dusts. She previously been employed as a teacher. Patient does have underlying seasonal allergies that usually well controlled on Zyrtec. Previously tried on albuterol MDI, prednisone, omeprazole with no significant improvement. Recent normal pulmonary function test at [facility] and CT chest essentially normal, except mild peripheral interstitial scarring. After the last office visit patient's sputum culture did not grow Amanda and she was treated with a course of fluconazole with essentially resolution of her symptoms until she had to have a course of antibiotics for underlying kidney infection after which her productive cough has recurred. [facility] Medical History Post-menopausal Recurrent oral herpes simplex infection Polyarthritis (03/18/19) Diverticulitis Depression Chronic cough Allergic rhinitis Acid reflux Social History (Updated 08/04/24 @ 13:08 by Gena David [facility]) Patient Tobacco Use Status: Never used Tobacco Review of Systems Const Denies daytime sleepiness, Denies excessive sweating, Denies fatigue, Denies fever(s), Denies lethargy, Denies malaise, Denies night sweats, Denies snoring and Denies weight loss Eyes Denies blurry vision and Denies itchy eyes ENT Denies nasal congestion, Denies post nasal drip, Denies sinus pain, Denies sinus pressure and Denies other ( Thrush) Card Denies chest pain, Denies pedal edema, Denies dyspnea, Denies orthopnea and Denies paroxysmal nocturnal dyspnea Resp Reports cough, Denies hemoptysis, Reports excessive phlegm production, Denies dyspnea, Denies snoring and Denies wheezing GI Denies abdominal pain and Denies heartburn Musc Denies myalgias, Denies arthralgias and Denies joint swelling Skin/Breast Denies rash Neuro Denies memory loss and Denies seizure-like activity Psych Denies abnormal sleep pattern, Denies anxiety and Denies memory loss Endo Denies excessive sweating, Denies fatigue and Denies heat intolerance Oscar/Lymph Denies easy bruising Aller/Immun Denies itchy eyes, Denies seasonal rhinorrhea and Denies wheezing Physical Exam Vital Signs: Last Vital Signs Pulse 96 10/07/24 13:53 BP 117/78 10/07/24 13:53 Pulse Ox 98 10/07/24 13:53 Oxygen Delivery Method Room Air 10/07/24 13:53 BMI result Body Mass Index 29.3 Const General: no acute distress and alert Nutritional Appearance: not obese Orientation/consciousness: Other orientation findings ( oriented) HEENT Head: Yes atraumatic Eyes General: appearance normal, both eyes and all related structures Sclerae: sclerae normal EOM: EOMs intact bilaterally Neck Neck: Yes supple Lymphatic: no lymphadenopathy noted Resp Effort & Inspection: normal respiratory effort and no use of accessory muscles Auscultation: clear to auscultation bilaterally Cardio Rate: regular rate Rhythm: regular rhythm Heart sounds: no gallops, no murmurs and no rubs Skin General skin exam: other ( warm) Extrem General: No clubbing, No cyanosis and No edema Assessment & Plan Assessment & Plan (1) Recurrent cough: Code(s): R05.8 - Other specified cough Category: Medical Plan: Current cough with cultures growing Amanda, will repeat fluconazole course. Medications: New prednisone 40 mg (2 x 20 mg) PO DAILY 10 tabs 0RF fluconazole 200 mg PO DAILY 28 tabs 0RF Coding Level of Care Code Est Pt Level 3 (51304) Diagnoses Recurrent cough R05.8
--- OUTSIDE RECORDS SUMMARY | 2024-10-07 13:58 | XMS_ITS | Clinical Summary ---
Author Organization [facility] [address] Address [address] [place] [address] Phone Care Team Providers Care Time Clock Repairer Name Role Phone Margi Haq MD Primary Care Provider Allergies No known active allergies Medications spironolactone (ALDACTONE) 50 mg tablet Take 1 tablet (50 mg total) by mouth daily. 4 Active estradioL (ESTRACE) 1 mg tablet Take 1 tablet (1 mg total) by mouth 1 (one) time each day. with food Active atorvastatin (LIPITOR) 20 mg tablet Take 1 tablet (20 mg total) by mouth. 4 Active Lactobacillus acidophilus 100 mg (1 billion cell) capsule Take 1 capsule by mouth 2 (two) times a day. 60 each 5 10/27/19 25 Active methocarbamoL (ROBAXIN) 500 mg tablet Take 1 tablet (500 mg total) by mouth 2 (two) times a day for 10 days. 20 tablet 5 10/11/19 25 Active cefpodoxime (VANTIN) 200 mg tablet Take 1 tablet (200 mg total) by mouth 2 (two) times a day for 10 days. 20 each 5 10/07/19 25 Encounters Date Type Department Care Team Description 09/29/2024 9:22 PM EDT - 09/30/2024 12:50 AM EDT Emergency [facility] Emergency [address] [place] [address] Lavonne Matthews MD Kokkinos, Erika, MD Left flank pain (Primary Dx); Left sided abdominal pain Discharge Disposition: Home or Self Care 09/26/2024 12:47 PM EDT - 09/26/2024 6:01 PM EDT Emergency [facility] Emergency [address] [place] [address] Merrick Diane MD Pyelonephritis (Primary Dx); Right upper quadrant abdominal pain Discharge Disposition: Home or Self Care from Last 3 Months Surgical History Surgery Date Site/Laterality Comments COLONOSCOPY [...] 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 Not on file Not on file Not o n file Obstetrics History Last Filed Vital Signs Vital Sign Reading Time Taken Comments Blood Pressure 144/95 09/29/2024 6:35 PM EDT Pulse 89 09/29/2024 6:35 PM EDT Temperature 36.5 C (97.7 F) 09/29/2024 6:35 PM EDT Respiratory Rate 18 09/29/2024 6:35 PM EDT Oxygen Saturation 97% 09/29/2024 6:35 PM EDT Inhaled Oxygen Concentration - - Weight 65.8 kg (145 lb) 09/29/2024 6:35 PM EDT Height 149.9 cm (4' 11 ) 09/29/2024 6:35 PM EDT Body Mass Index 29.29 09/29/2024 6:35 PM EDT Plan of Treatment Health Maintenance Due [...] Procedure Name Priority Date/Time Associated Diagnosis Comments CT ABDOMEN PELVIS W CONTRAST STAT 09/29/2024 11:38 PM EDT ROBINS URINE CULTURE TUBE STAT 09/29/2024 10:26 PM EDT URINALYSIS WITH REFLEX MICROSCOPIC AND CULTURE STAT 09/29/2024 10:26 PM EDT URINALYSIS WITH REFLEX MICROSCOPIC AND CULTURE STAT 09/29/2024 10:26 PM EDT COMPLETE BLOOD COUNT STAT 09/29/2024 10:04 PM EDT COMPREHENSIVE METABOLIC PANEL STAT 09/29/2024 10:04 PM EDT CULTURE URINE STAT 09/26/2024 5:[address] ABDOMEN PELVIS W CONTRAST STAT 09/26/2024 4:00 PM EDT ROBINS URINE CULTURE TUBE STAT 09/26/2024 1:42 PM EDT URINALYSIS WITH REFLEX MICROSCOPIC AND CULTURE STAT 09/26/2024 1:42 PM EDT URINALYSIS WITH REFLEX MICROSCOPIC AND CULTURE STAT 09/26/2024 1:42 PM EDT CBC WITH AUTO DIFFERENTIAL STAT 09/26/2024 1:08 PM EDT CBC AND DIFFERENTIAL STAT 09/26/2024 1:08 PM EDT LIPASE STAT 09/26/2024 1:08 PM EDT COMPREHENSIVE METABOLIC PANEL STAT 09/26/2024 1:08 PM EDT COLONOSCOPY Routine 11/07/2020 1:09 PM EDT from Last 3 Months or Most Recently Relevant to Health Maintenance Results * CT Abdomen Pelvis w Contrast (09/29/2024 11:38 PM EDT) Only the most recent of2 resultswithin the time period is included. Anatomical Region Laterality Modality Body Computed Tomogra phy 09/30/2024 12:0 3 AM EDT Impressions 09/30/2024 12:03 AM EDT 1. No acute intraabdominal or pelvic pathology. 2. Cervix appears enlarged for the patient's age. Recommend follow-up with gynecology and nonemergent pelvic ultrasound. This document has been electronically signed by: Imelda Padgett MD on 09/30/2024 00:03:26 Narrative 09/30/2024 12:03 AM EDT INDICATION: Abdominal distension CT abdomen and pelvis with contrast Comparison: CT - CT ABD PEL W CONTRAST - 09/26/24 15:59 EDT Findings: Mild dependent atelectasis. Stones versus polyps in the gallbladder, similar to prior. No biliary duct dilatation. Liver, spleen, pancreas, and adrenal glands are within normal limits. No hydronephrosis. Symmetric contrast enhancement of the kidneys. Previously noted urothelial thickening on the right is improved from prior. Colonic diverticulosis without acute inflammation. No bowel obstruction, pneumatosis or pneumoperitoneum. Normal appendix. Aortic atherosclerosis. No aneurysm. Cervix appears enlarged for the patient's age. Urinary bladder is underdistended. Degenerative changes of the spine. No acute fracture. Procedure Note Imelda Padgett MD - 09/30/2024 INDICATION: Abdominal distension CT abdomen and pelvis with contrast Comparison: CT - CT ABD PEL W CONTRAST - 09/26/24 15:59 EDT Findings: Mild dependent atelectasis. Stones versus polyps in the gallbladder, similar to prior. No biliaryduct dilatation. Liver, spleen, pancreas, and adrenal glands are within normal limits. No hydronephrosis. Symmetric contrast enhancement of the kidneys. Previously noted urothelial thickening on the right is improved fromprior. Colonic diverticulosis without acute inflammation. No bowel obstruction, pneumatosis or pneumoperitoneum. Normal appendix. Aortic atherosclerosis. No aneurysm. Cervix appears enlarged for the patient's age. Urinary bladder is underdistended. Degenerative changes of the spine. No acute fracture. IMPRESSION: 1. No acute intraabdominal or pelvic pathology. 2. Cervix appears enlarged for the patient's age. Recommend follow-upwith gynecology and nonemergent pelvic ultrasound. This document has been electronically signed by: Imelda Padgett MD on 09/30/2024 00:03:26 Lavonne Matthews MD IMG CT PROCEDURES Final Result * Urinalysis with reflex microscopic and culture (09/29/2024 10:26 PM EDT) Only the most recent of2 resultswithin the time period is included. Specific [place] Urine 1.018 1.003 - 1.030 LAB URINALYSIS - AUTOMATED METHOD 09/29/2024 11:34 PM [facility] pH, Urine 6.0 5.0 - 8.0 pH LAB URINALYSIS - AUTOMATED METHOD 09/29/2024 11:34 PM [facility] Leukocytes, Urine Negative Negative LAB URINALYSIS - AUTOMATED METHOD 09/29/2024 11:34 PM [facility] Nitrite, Urine Negative Negative LAB URINALYSIS - AUTOMATED METHOD 09/29/2024 11:34 PM [facility] Protein, Urine Negative <=Trace mg/dL LAB URINALYSIS - AUTOMATED METHOD 09/29/2024 11:34 PM [facility] Glucose, Urine Negative Negative mg/dL LAB URINALYSIS - AUTOMATED METHOD 09/29/2024 11:34 PM [facility] Ketones, Urine Negative Negative mg/dL LAB URINALYSIS - AUTOMATED METHOD 09/29/2024 11:34 PM [facility] Urobilinogen, Urine 0.2 0.2 - 1.0 mg/dL LAB URINALYSIS - AUTOMATED METHOD 09/29/2024 11:34 PM [facility] Bilirubin, Urine Negative Negative LAB URINALYSIS - AUTOMATED METHOD 09/29/2024 11:34 PM [facility] Blood, Urine Negative Negative LAB URINALYSIS - AUTOMATED METHOD 09/29/2024 11:34 PM [facility] Urine Urine specimen obtained by clean catch procedure / Unknown Non-blood Collection / Unknown 09/29/2024 10:26 PM EDT 09/29/2024 11:28 PM EDT us Lavonne Matthews MD LAB URINE ORDERABLES Final Resul t Performing Organization Address City/[facility]/ZIP Co de Phone Number [facility] [address] [place] [address], [place] [phone] * Robins urine culture tube (09/29/2024 10:26 PM EDT) Only the most recent of2 resultswithin the time period is included. [facility] Extra Tube Hold for add-ons. 09/30/2024 1:01 AM EDT [facility] Comment:Auto resulted. Urine Urine specimen obtained by clean catch procedure / Unknown Non-blood Collection / Unknown 09/29/2024 10:26 PM EDT 09/29/2024 11:28 PM EDT us Lavonne Matthews MD LAB URINE ORDERABLES Final Resul t Performing Organization Address City/[facility]/ZIP Co de Phone Number [facility] [address] [place] [address], [place] [phone] * CBC (09/29/2024 10:04 PM EDT) [facility] WBC 7.3 4.8 - 10.8 K/mcL LAB HEMETOLOGY METHOD 09/29/2024 10:55 PM EDT [facility] RBC 4.40 3.80 - 4.80 M/mcL LAB HEMETOLOGY METHOD 09/29/2024 10:55 PM EDT [facility] Hemoglobin 13.3 11.5 - 16.0 g/dL LAB HEMETOLOGY METHOD 09/29/2024 10:55 PM EDT [facility] Hematocrit 38.6 35.0 - 47.0 % LAB HEMETOLOGY METHOD 09/29/2024 10:55 PM EDT [facility] MCV 87.7 79.0 - 98.0 FL LAB HEMETOLOGY METHOD 09/29/2024 10:55 PM EDT [facility] MCH 30.2 27.0 - 32.0 pcg LAB HEMETOLOGY METHOD 09/29/2024 10:55 PM EDT [facility] MCHC 34.5 32.0 - 37.0 g/dL LAB HEMETOLOGY METHOD 09/29/2024 10:55 PM EDT [facility] RDW 12.2 11.0 - 15.0 % LAB HEMETOLOGY METHOD 09/29/2024 10:55 PM EDT [facility] Platelets 254 130 - 400 K/mcL LAB HEMETOLOGY METHOD 09/29/2024 10:55 PM EDT [facility] MPV 9.3 7.0 - 11.0 FL LAB HEMETOLOGY METHOD 09/29/2024 10:55 PM EDT [facility] NRBC 0.0 <1.0 % LAB HEMETOLOGY METHOD 09/29/2024 10:55 PM EDT [facility] NRBC Absolute 0.00 <0.10 K/mcL LAB HEMETOLOGY METHOD 09/29/2024 10:55 PM EDT [facility] Blood Venous blood specimen / Unknown Venipuncture / Unknown 09/29/2024 10:04 PM EDT 09/29/2024 10:50 PM EDT us Lavonne Matthews MD LAB BLOOD ORDERABLES Final Resul t [facility] [address] [place] [address], * (ABNORMAL) Comprehensive Metabolic Panel (CMP) (09/29/2024 10:04 PM EDT) Only the most recent of2 resultswithin the time period is included. Sodium 135 133 - 145 mmol/L LAB CHEMISTRY METHOD 09/29/2024 11:14 PM EDT [facility] Potassium 4.0 3.5 - 5.5 mmol/L LAB CHEMISTRY METHOD 09/29/2024 11:14 PM [facility] Chloride 103 96 - 110 mmol/L LAB CHEMISTRY METHOD 09/29/2024 11:14 PM [facility] CO2 26 21 - 32 mmol/L LAB CHEMISTRY METHOD 09/29/2024 11:14 PM [facility] Anion Gap 6 3 - 11 LAB CHEMISTRY METHOD 09/29/2024 11:14 PM [facility] Glucose 87 70 - 100 mg/dL LAB CHEMISTRY METHOD 09/29/2024 11:14 PM [facility] BUN 22 5 - 25 mg/dL LAB CHEMISTRY METHOD 09/29/2024 11:14 PM [facility] Creatinine 1.02 0.50 - 1.10 mg/dL LAB CHEMISTRY METHOD 09/29/2024 11:14 PM [facility] eGFR 58(L) >=60 mL/min/1. 73m2 LAB CHEMISTRY METHOD 09/29/2024 11:14 PM [facility] Comment:Calculation based on the Chronic Kidney Disease Epidemiology Collaboration (CKD-EPI) equation refit without adjustment for race. BUN/Creatinine Ratio 21.6 LAB CHEMISTRY METHOD 09/29/2024 11:14 PM [facility] Calcium 8.8 8.5 - 10.5 mg/dL LAB CHEMISTRY METHOD 09/29/2024 11:14 PM [facility] AST (SGOT) 26 10 - 42 unit/L LAB CHEMISTRY METHOD 09/29/2024 11:14 PM [facility] ALT (SGPT) 35 10 - 60 unit/L LAB CHEMISTRY METHOD 09/29/2024 11:14 PM [facility] Alkaline Phosphatase 99 42 - 121 unit/L LAB CHEMISTRY METHOD 09/29/2024 11:14 PM [facility] Total Protein 7.1 6.0 - 8.0 g/dL LAB CHEMISTRY METHOD 09/29/2024 11:14 PM EDT [facility] Albumin 3.7 3.2 - 5.0 g/dL LAB CHEMISTRY METHOD 09/29/2024 11:14 PM EDT [facility] Total Bilirubin 0.6 0.0 - 1.4 mg/dL LAB CHEMISTRY METHOD 09/29/2024 11:14 PM EDT [facility] Blood Venous blood specimen / Unknown Venipuncture / Unknown 09/29/2024 10:04 PM EDT 09/29/2024 10:50 PM EDT Lavonne Matthews MD LAB BLOOD ORDERABLES Final Resul t Performing Organization Address City/[facility]/ZIP Co de Phone Number [facility] [address] [place] [address], [place] [phone] * Urine Culture (09/26/2024 5:50 PM EDT) Culture, Urine 10,000-49,000 CFU/mL Mixed bacterial morphotypes present suggestive of possible contamination during collection. Suggest appropriate recollection if clinically indicated. 09/27/2024 10:28 AM EDT [facility] Urine Urine specimen obtained by clean catch procedure / Unknown Non-blood Collection / Unknown 09/26/2024 5:50 PM EDT 09/26/2024 5:50 PM EDT Merrick Diane MD LAB MICROBIOLOGY - GENERAL ORDER LINDA Final Result [facility] [address] [place] [address], [place] [phone] * CBC auto differential (09/26/2024 1:08 PM EDT) WBC 6.3 4.8 - 10.8 K/mcL LAB HEMETOLOGY METHOD 09/26/2024 1:35 PM EDT [facility] RBC 4.80 3.80 - 4.80 M/mcL LAB HEMETOLOGY METHOD 09/26/2024 1:35 PM EDT [facility] Hemoglobin 14.5 11.5 - 16.0 g/dL LAB HEMETOLOGY METHOD 09/26/2024 1:35 PM T [facility] Hematocrit 41.9 35.0 - 47.0 % LAB HEMETOLOGY METHOD 09/26/2024 1:35 PM T [facility] MCV 88.2 79.0 - 98.0 FL LAB HEMETOLOGY METHOD 09/26/2024 1:35 PM [facility] MCH 30.5 27.0 - 32.0 pcg LAB HEMETOLOGY METHOD 09/26/2024 1:35 PM [facility] MCHC 34.6 32.0 - 37.0 g/dL LAB HEMETOLOGY METHOD [facility]/26[facility]2024 [facility] RDW 12.2 11.0 - 15.0 % LAB HEMETOLOGY METHOD 09/26/2024 1:35 PM [facility] Platelets 232 130 - 400 K/mcL LAB HEMETOLOGY METHOD 09/26/2024 1:35 PM [facility] MPV 9.6 7.0 - 11.0 FL LAB HEMETOLOGY METHOD 09/26/2024 1:35 PM [facility] NRBC 0.0 <1.0 % LAB HEMETOLOGY METHOD 09/26/2024 1:[facility] NRBC Absolute 0.00 <0.10 K/mcL LAB HEMETOLOGY METHOD 09/26/2024 1:35 [facility] Neutrophils Relative 67.1 % LAB HEMETOLOGY METHOD 09/26/2024 1:35 [facility] Lymphocytes Relative 24.1 % LAB HEMETOLOGY METHOD 09/26/2024 1:35 PM EDT [facility] Monocytes Relative 7.0 % LAB HEMETOLOGY METHOD 09/26/2024 1:35 PM EDT [facility] Eosinophils Relative 1.4 % LAB HEMETOLOGY METHOD 09/26/2024 1:35 PM EDT [facility] Basophils Relative 0.2 % LAB HEMETOLOGY METHOD 09/26/2024 1:35 PM EDT [facility] Immature Granulocytes Relative 0.2 % LAB HEMETOLOGY METHOD 09/26/2024 1:35 PM EDT [facility] Neutrophils Absolute 4.21 1.50 - 7.00 K/mcL LAB HEMETOLOGY METHOD 09/26/2024 1:35 PM T [facility] Lymphocytes Absolute 1.51 1.00 - 5.00 K/mcL LAB HEMETOLOGY METHOD 09/26/2024 1:35 PM EDT [facility] Monocytes Absolute 0.44 0.20 - 1.00 K/mcL LAB HEMETOLOGY METHOD 09/26/2024 1:35 PM EDT [facility] Eosinophils Absolute 0.09 0.00 - 0.50 K/mcL LAB HEMETOLOGY METHOD 09/26/2024 1:35 PM T [facility] Basophils Absolute 0.01 0.00 - 0.20 K/mcL LAB HEMETOLOGY METHOD 09/26/2024 1:35 PM EDT [facility] Immature Granulocytes Absolute 0.01 0.00 - 0.03 K/mcL LAB HEMETOLOGY METHOD 09/26/2024 1:35 PM [facility] Blood Venous blood specimen / Unknown Venipuncture / Unknown 09/26/2024 1:08 PM EDT 09/26/2024 1:28 PM EDT us Merrick Roxi LAM LAB BLOOD ORDERABLES Final Resul t Performing Organization Address [facility]/ZIP Co de Phone Number [facility] [address] [place] [address], * Lipase (09/26/2024 1:08 PM EDT) Lipase 58 13 - 75 unit/L LAB CHEMISTRY METHOD 09/26/2024 2:09 PM EDT [facility] Blood Venous blood specimen / Unknown Venipuncture / Unknown 09/26/2024 1:08 PM EDT 09/26/2024 1:28 PM EDT us Merrick Diane MD LAB BLOOD ORDERABLES Final Resul t Performing Organization Address [facility] Co de Phone Number [facility] [address] [place] [address], [place] [phone] * COLONOSCOPY (11/07/2020 1:09 PM EDT) Anatomical Region Laterality Modality Endoscopy [facility] Provider GI~PROCEDURE ORDERABLES F inal Result from Last 3 Months or Most Recently Relevant to Health Maintenance Insurance [facility]ICARE [facility] Care Teams Time Clock Repairer Relationship Specialty Start Date End Date Margi Haq MD [address] [place] [address] PCP - General Internal Medicine 09/29/24
--- OUTSIDE RECORDS SUMMARY | 2024-10-07 13:58 | XMS_ITS | Patient Health Record ---
Author Organization [facility] Address [address] [place] [address] Care Team Providers Care Customer Service Representative Name Role Phone Brock Culver MD Primary Care Provider Kellen Dowling Unavailable [phone] Allergies Allergen (clinical drug ingredient) Drug/Non Drug [...] Treatment Pending Test Test Name Order Date [id number] Destruction, 1-14 08/31/2015- Ganglion Cyst Injection/Aspiratio n 12/15/2015 Insurance Providers Payer Name Payer Address Payer Phone Subscriber Number Group Number Insured Name Patient Relationship to Insured Coverage Start Date Coverage End Date [facility] Others [address] [place] [address] [phone] [id number] Jose Marcelino Other Medical (General) History Medical History History ICD Code Chicken pox
--- OUTSIDE RECORDS SUMMARY | 2024-10-07 13:58 | XMS_ITS | Clinical Summary ---
Author Organization [facility] Address [address] [facility] [address] [place] [address] Phone Care Team Providers Care Marble Cutter Operator Name Role Phone Junie Salinas RELAY RECORD CLERK Primary Care Provider Allergies No known active [...] topic Medical Devices Not on file Insurance [facility] Member Subscriber Plan / Payer (Ef fective 2023-Present) Name:RylandTari sapp Relation to Subscriber:Self Name:Tari Marcelino Payer ID:Not on file Type:PPO Address: [address] [facility] S Member Subscriber Plan / Payer (Ef fective 2023-Present) Name:Tari Marcelino Relation to Subscriber:Self Name:Tari Marcelino Payer ID:Not on file Type:PPO Address: [address] [facility] Care Teams Marble Cutter Operator Relationship Specialty Start Date End Date Junie Salinas NP [address] [place] [id number] PCP - General Nurse Practitioner 08/26/23 Additional Source Comments The information contained in this document represents components of the legal health record. It is not the complete legal health record.[facility]
--- OUTSIDE RECORDS SUMMARY | 2024-10-07 13:59 | XMS_ITS | Patient Health Record ---
Author Organization [facility] Address [address] [place] [address] Care Team Providers Care Warehouse Packaging Supervisor Name Role Phone AUDREY SANFORD Primary Care Provider Jennifer Burris Unavailable [phone] Reason For Referral No Information Medications Medication [...] Active Multivitamins 1 ORAL daily; Duration: -3 [facility] 08/28/2012 Active Provera 5 MG 1 [...] Active Vitamin C 500MG 1 ORAL occ [facility] 08/28/2012 Ac tive Vitamin E 400 [...] W/U Status Risk Notes Problem Menopausal symptom (59245761) Symptomatic menopausal or female climacteric states (627.2) Active confirmed Major Problem Gynecological examination normal (599171691796794) Routine gynecological examination (V72.31) Active confirmed Major Problem Family history of malignant neoplasm of ovary (735722727) Family history of malignant neoplasm, ovary (V16.41) Active confirmed Diag Problem Screening for malignant neoplasm of colon (658275962) Special screening for malignant neoplasms, colon (V76.51) Active confirmed Major Plan Of Treatment Pending Test Test Name Order Date Ultrasound : Breast, left 06/29/2014 MAMMOGRAM, SCREENING 06/29/2014 MAMMOGRAM, SCREENING 07/24/2015 MAMMOGRAM, SCREENING 01/05/2020 Urinalysis 06/29/2014 Urinalysis 09/15/2018 DIAGNOSTIC MAMMOGRAM, LEFT BREAST 2014 THIN PREP,HPV,JENNIFER IF HPV+ (>29YR)(SCRN) 08/28/2017 MM Digital Mammo Screening 01/05/2020 Left Breast Ultrasound 01/05/2020 Insurance Providers Payer Name Payer Address Payer Phone Subscriber Number Group Number Insured Name Patient Relationship to Insured Coverage Start Date Coverage End Date [facility] [address] [place] [id number] Self - patient is the [...]
== END 2024-10-07 14:14 | disposition home or self-care (01) ==
LOC: HO.HPS 13:52
PROVIDERS: PCP Nurse Practitioner Family; Visit Provider Internal Medicine Pulmonary Disease
DX: R05.8 Other specified cough (principal)
CPT/HCPCS: 99213